=== PATIENT | male | born 1960 | race Caucasian/White ===

== ENCOUNTER → 2016-10-31 | Outpatient (CLI) | payer BC ==
[~2016-10-31] MED LIST: ASPI81TA28 PO; CHOL100010 PO; CLB200 PO; HYDR-5688 PO; LSN/2025 PO
== END | disposition home or self-care (01) ==
LOC: C.PATHSPEC 17:01
PROVIDERS: ATTEND Dentist Oral and Maxillofacial Pathology
DX: D21.0 Benign neoplasm of connective and other soft tissue of head, face and neck (principal)

== ENCOUNTER 2023-11-10 14:51 | Observation (INO) ==
[2023-11-10 15:29] LABS: Basophils # (auto) 0.04 K/uL (0.00-0.20); Basophils % (auto) 0.4 %; Eosinophils # (auto) 0.07 K/uL (0.00-0.50); Eosinophils % (auto) 0.7 %; Hematocrit (blood only) 41.6 % (42.0-52.0); Hemoglobin 14.4 g/dl (14.0-18.0); Immature Granulocytes # (auto) 0.07 K/uL (0.01-0.20); Immature Granulocytes % (auto) 0.7 %; Lymphocytes # (auto) 1.09 K/uL (1.20-3.40); Lymphocytes % (auto) 10.9 %; Mean Corpuscular Hgb Conc 34.6 g/dL (32.0-36.0); Mean Corpuscular Volume 89.5 fL (80.0-100.0); Mean Platelet Volume 8.7 fL (9.4-12.4); Monocytes # (auto) 0.63 K/uL (0.11-0.59); Monocytes % (auto) 6.3 %; Platelet Count 251 K/uL (130-400); RDW Standard Deviation 39.2 fL (36.4-46.3); Red Blood Count 4.65 M/uL (4.70-6.10)
[2023-11-10 15:50] LABS: Albumin Globulin Ratio 1.6 (0.9-2); Albumin Level 4.4 gm/dl (3.4-5.0); BUN Creatinine Ratio 14.6 (10-20); Bilirubin,Total 0.6 mg/dl (0.2-1.0); Calcium 9.5 mg/dl (8.6-10.3); Creatinine Clr Calc Pharmacy 107.4 ml/min; Est GFR (African American) 106.2 ml/min; Est GFR (Non-African American) 91.6 ml/min; Globulin 2.7 gm/dl (2.5-4.0); Potassium 3.2 mmol/L (3.5-5.1); Total Protein 7.1 gm/dl (6.0-8.3)
[2023-11-10] MEDS ORDERED: VANCOMYCIN CONSULT ACTIVE PRN (16:03)
--- NOTE | 2023-11-10 16:21 | History & Physical Report ---
Date of Service November 10, 2023 Assessment & Plan (1) Cellulitis of left arm: (2) DM II (diabetes mellitus, type II), controlled: (3) Hypertension: (4) HLD (hyperlipidemia): Plan: Left olecranon Cellulitis - Admit to Med surg - Pt reports worsening erythema and edema today despite antibiotic therapy of doxycycline x 4 days, failure of outpt abx - No WBC, afebrile, - Will continue on ceftriaxone and vanc today started in the ER, wean to PO as tolerated - Attempted to outline erythematous region but difficult to determine due to tattoos and is not brght red. There is some warmth however cannot tell compared as both arm temps feel the same. - Check XR left arm - does not appear to have a septic joint, pt with full ROM, afebrile Hypokalemia - K+ 3.2 - replace with Po 40 meq, recheck with am labs HTN HLD - Continue home meds, chronic, stable - amlodipine 2.5 mg daily, atorvastatin 20 mg QPM, lisinopril/HCTZ 20-25 mg daily, metoprolol 50 mg daily DM II - Will hold metformin and use insulin sliding scale while admitted - Last A1C of 6.3 on 10/29/23 - Diet and exercise to be encouraged throughout hospital stay DVT ppx: ambulatory Lines: 1 PIV FEN/GI: Heart healthy/DM diet CODE: Full code Dispo: From home, likely to remain in the hospital x 1-2 days A total of 75 minutes were spent with greater than 50% of that time face to face with the patient, personally reviewing all current laboratories, imaging studies, past medication reconciliation, outpatient chart review, and discussion with specialists to collaborate care for the patient with attending. Please see attending documentation for corrections and/or additions. History of Present Illness Chief Complaint: L elbow swelling and erythema Primary Care Provider: Jerad Agrawal MD This is a 63 yo M with PMHx of HTN, DM type II, restless leg, who fell on October 24 down on his left arm and reports that it jammed up his shoulder. He has an abrasion over the ulnar aspect of the elbow which she has been seen by his PCP for earlier today. Redness and tenderness over the elbow started 2 days ago, earlier this morning at PCP office denied any acute fever. He was started on doxycycline 100 mg twice daily and told that if he noticed worsening erythema/fever he was to present to the ER. Patient states that he was outside working earlier this morning using a chain saw, that he is right-handed, for about a 2-hour timeframe and that he noticed his left forearm became increasingly swollen with more inner erythema. He has been taking doxycycline p.o. since last Thursday whenever PCP prescribed it. Notes that he has not quite felt himself, diminished appetite, states that he is somewhat nauseous after taking doxycycline. Denies any fevers, chills or sweats. He did take Aleve 2 days ago for generalized aches and pains. Patient is taking all other home medication without any difficulty. Patient denies any tick bites. He has been able to walk without any difficulty. Allergies Allergy/AdvReac Type Severity Reaction Status Date / Time No Known Allergies Allergy Mild Verified 11/10/23 17:08 Home Medications Medication Instructions Recorded Confirmed Type allopurinol 300 mg tablet 300 mg PO QAM 11/10/23 11/10/23 History amlodipine 2.5 mg tablet 2.5 mg PO QAM 11/10/23 11/10/23 History aspirin 81 mg tablet,delayed 81 mg PO DAILY 11/10/23 11/10/23 History release atorvastatin 20 mg tablet 20 mg PO QPM 11/10/23 11/10/23 History cholecalciferol (vitamin D3) 50 50 mcg PO DAILY 11/10/23 11/10/23 History mcg (2,000 unit) tablet (Vitamin D3) cyanocobalamin (vitamin B-12) 1,000 mcg PO DAILY 11/10/23 11/10/23 History 1,000 mcg tablet (Vitamin B-12) doxycycline hyclate 100 mg capsule 100 mg PO BID 11/10/23 11/10/23 History lisinopril 20 1 tab PO QAM 11/10/23 11/10/23 History mg-hydrochlorothiazide 25 mg tablet meclizine 25 mg tablet 25 mg PO TID PRN .dizzyness 11/10/23 11/10/23 History metformin 500 mg tablet,extended 1,000 mg PO DAILY 11/10/23 11/10/23 History release 24 hr metoprolol succinate 50 mg 50 mg PO QAM 11/10/23 11/10/23 History tablet,extended release 24 hr ropinirole 0.5 mg tablet 1.5 mg PO HS 11/10/23 11/10/23 History Past Med/Surg History Problem List (Updated 11/10/23 @ 16:59 by Mignon Ruiz PA-C) Cellulitis of left arm Medical History (Updated 11/10/23 @ 16:59 by Mignon Ruiz PA-C) HLD (hyperlipidemia) DM II (diabetes mellitus, type II), controlled Hypertension Arthritis of right hip Surgical History (Updated 11/10/23 @ 17:01 by Mignon Riuz PA-C) Status post right hip replacement S/P left rotator cuff repair 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 Hx of colonoscopy Family History (Updated 11/10/23 @ 16:59 by Mignon Ruiz PA-C) Mother Diabetes Father Cancer Social History (Updated 11/10/23 @ 17:00 by Mignon Ruiz PA-C) Smoking Status: Never smoker Tobacco Type: Smokeless Tobacco (Dip or Chew) Age Quit Using Tobacco: 43; Feels Safe at Home: Yes Review of Systems Review of Systems: Constitutional: No fever, sweats or chills Eyes: No diplopia, no worsening or blurred vision ENT: normal hearing, no trouble swallowing Respiratory: No cough, sputum, dyspnea at rest or on exertion Cardiovascular: No chest pain, tightness or palpitations Abdomen: No pain, nausea, vomiting, diarrhea or constipation Musculoskeletal: Left elbow per HPI, + chronic Left hip pain, s/p R hip replacement, no calf pain, swelling Neurologic: No weakness, numbness/tingling, or balance problems Psychiatric: No anxiety or depression Skin: No rash or itch Physical Exam Physical Exam: General: awake, alert, no apparent distress, white, male Head: Normocephalic, atraumatic ENT: PERRL, EOMI, no pharyngeal exudate, mucous membranes moist Chest: Clear to auscultation, on room air, no adventitious breath sounds Cardiac: Regular rate and rhythm, no murmur, no JVD, normal peripheral pulses, good capillary refill Abdominal: NABS x 4 quadrants, soft, nondistended, nontender to palpation, no rebound or guarding Extremities: Left elbow with scabbed over area, surrounding erythema is dull, difficult to see with tattoos, +warmth to touch slightly, no obvious significant edema in forearm, otherwise Normal inspection, no peripheral edema or erythema, calfs nontender to palpation Psych: Normal mood and affect Neuro: AAO x 3, strength intact bilaterally and rated 5/5, no motor deficits, speech is clear, no peripheral sensory deficits Results & Data Results & Data Vital Signs (Past 12 Hours) Vital Signs Temp Pulse Pulse Resp BP BP Pulse Ox 11/10/23 15:58 67 11/10/23 15:24 69 18 130/75 97 11/10/23 15:01 36.5 C 68 20 130/82 97 O2 Del Method 11/10/23 15:58 11/10/23 15:24 Room Air 11/10/23 15:01 Room Air Laboratory Results 11/10/23 15:13 WBC 10.00 RBC 4.65 L Hgb 14.4 Hct 41.6 L MCV 89.5 MCH 31.0 MCHC 34.6 RDW Std Deviation 39.2 RDW Coeff of Yue 12.0 Plt Count 251 MPV 8.7 L Immature Gran % (Auto) 0.7 Neut % (Auto) 81.0 Lymph % (Auto) 10.9 Wirt % (Auto) 6.3 Eos % (Auto) 0.7 Baso % (Auto) 0.4 Neut # (Auto) 8.10 H Lymph # (Auto) 1.09 L Wirt # (Auto) 0.63 H Eos # (Auto) 0.07 Baso # (Auto) 0.04 Immature Gran # (Auto) 0.07 Sodium 139 Potassium 3.2 L Chloride 100 Carbon Dioxide 32 Anion Gap 7 BUN 13 Creatinine 0.89 Est Cr Clr Drug Dosing 107.4 Est GFR ( Amer) 106.2 Est GFR (Non-Af Amer) 91.6 BUN/Creatinine Ratio 14.6 Glucose 165 H Calcium 9.5 Total Bilirubin 0.6 AST 18 ALT 13 Alkaline Phosphatase 63 Total Protein 7.1 Albumin 4.4 Globulin 2.7 Albumin/Globulin Ratio 1.6 Supervising Physician Co-Signing Physician Notes I have reviewed the advanced practitioner's documentation on the date of service referenced in note, and I agree with, and take responsibility for the plan of care. Pt seen and examined in the ED with Adrienne Ruiz PA-C. His spouse is present as well. Pt started on Doxy per his PCP for RUE cellulitis. He feels it is worse. Will admit and continue IV abx regimen as directed. I have spent a total of [] minutes coordinating, documenting and providing care for the patient excluding time spent in the performance of separately billed services or time spent by another provider/QHP.
[2023-11-10] MEDS: cefTRIAXone SODIUM 2,000 MG/50 ML BAG IV STA (17:05)
[2023-11-10] MEDS: VANCOMYCIN HCL 2,250 MG in SODIUM CHLORIDE 0.9% 500 ML IV ONE (17:52)
[2023-11-10] MEDS: POTASSIUM CHLORIDE CRTAB 20 MEQ TABCR PO STA (17:52)
--- NOTE | 2023-11-10 17:52 | History & Physical Report ---
Date of Service November 10, 2023 History of Present Illness Primary Care Provider: Jerad Agrawal MD Allergies Allergy/AdvReac Type Severity Reaction Status Date / Time No Known Allergies Allergy Mild Verified 11/10/23 17:08 Home Medications Medication Instructions Recorded Confirmed Type allopurinol 300 mg tablet 300 mg PO QAM 11/10/23 11/10/23 History amlodipine 2.5 mg tablet 2.5 mg PO QAM 11/10/23 11/10/23 History aspirin 81 mg tablet,delayed 81 mg PO DAILY 11/10/23 11/10/23 History release atorvastatin 20 mg tablet 20 mg PO QPM 11/10/23 11/10/23 History cholecalciferol (vitamin D3) 50 50 mcg PO DAILY 11/10/23 11/10/23 History mcg (2,000 unit) tablet (Vitamin D3) cyanocobalamin (vitamin B-12) 1,000 mcg PO DAILY 11/10/23 11/10/23 History 1,000 mcg tablet (Vitamin B-12) doxycycline hyclate 100 mg capsule 100 mg PO BID 11/10/23 11/10/23 History lisinopril 20 1 tab PO QAM 11/10/23 11/10/23 History mg-hydrochlorothiazide 25 mg tablet meclizine 25 mg tablet 25 mg PO TID PRN .dizzyness 11/10/23 11/10/23 History metformin 500 mg tablet,extended 1,000 mg PO DAILY 11/10/23 11/10/23 History release 24 hr metoprolol succinate 50 mg 50 mg PO QAM 11/10/23 11/10/23 History tablet,extended release 24 hr ropinirole 0.5 mg tablet 1.5 mg PO HS 11/10/23 11/10/23 History Past Med/Surg History Problem List (Updated 11/10/23 @ 16:59 by Mignon Ruiz PA-C) Cellulitis of left arm Medical History (Updated 11/10/23 @ 16:59 by Mignon Ruiz PA-C) HLD (hyperlipidemia) DM II (diabetes mellitus, type II), controlled Hypertension Arthritis of right hip Surgical History (Updated 11/10/23 @ 17:01 by Mignon Ruiz PA-C) Status post right hip replacement S/P left rotator cuff repair 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 Hx of colonoscopy Family History (Updated 11/10/23 @ 16:59 by Mignon Ruiz PA-C) Mother Diabetes Father Cancer Social History (Updated 11/10/23 @ 17:00 by Mignon Ruiz PA-C) Smoking Status: Never smoker Tobacco Type: Smokeless Tobacco (Dip or Chew) Age Quit Using Tobacco: 43; Feels Safe at Home: Yes Results & Data Results & Data Vital Signs (Past 12 Hours) Vital Signs Temp Pulse Pulse Resp BP BP Pulse Ox 11/10/23 15:58 67 11/10/23 15:24 69 18 130/75 97 11/10/23 15:01 36.5 C 68 20 130/82 97 O2 Del Method 11/10/23 15:58 11/10/23 15:24 Room Air 11/10/23 15:01 Room Air Code Status & VTE Plan VTE Prophylaxis Plan VTE Prophylaxis will be ordered: No
--- NOTE | 2023-11-10 17:55 | Emergency Department Note ---
History of Present Illness General Chief complaint: Swelling/Edema to Extremity Stated complaint: LT ARM SWELLING, PAIN Time Seen by Provider: 11/10/23 15:52 History of Present Illness Provider complaint: Left elbow swelling Onset (ago): day(s) 4 Maximum Pain Intensity: 2 Associated symptoms: + rash; no fever/chills 61-year-old male presents emergency department for left elbow swelling. Patient reports that 4 days ago he started having pain in swelling in his left elbow. He states he went to his PCP who started him on antibiotics because he thought that his bursa were infected. Patient reports that the swelling and pain has increased and now there is redness. He reports no fevers or chills. Home Medications Medication Instructions Recorded Confirmed Type allopurinol 300 mg tablet 300 mg PO QAM 11/10/23 11/10/23 History amlodipine 2.5 mg tablet 2.5 mg PO QAM 11/10/23 11/10/23 History aspirin 81 mg tablet,delayed 81 mg PO DAILY 11/10/23 11/10/23 History release atorvastatin 20 mg tablet 20 mg PO QPM 11/10/23 11/10/23 History cholecalciferol (vitamin D3) 50 50 mcg PO DAILY 11/10/23 11/10/23 History mcg (2,000 unit) tablet (Vitamin D3) cyanocobalamin (vitamin B-12) 1,000 mcg PO DAILY 11/10/23 11/10/23 History 1,000 mcg tablet (Vitamin B-12) doxycycline hyclate 100 mg capsule 100 mg PO BID 11/10/23 11/10/23 History lisinopril 20 1 tab PO QAM 11/10/23 11/10/23 History mg-hydrochlorothiazide 25 mg tablet meclizine 25 mg tablet 25 mg PO TID PRN .dizzyness 11/10/23 11/10/23 History metformin 500 mg tablet,extended 1,000 mg PO DAILY 11/10/23 11/10/23 History release 24 hr metoprolol succinate 50 mg 50 mg PO QAM 11/10/23 11/10/23 History tablet,extended release 24 hr ropinirole 0.5 mg tablet 1.5 mg PO HS 11/10/23 11/10/23 History Allergies Allergy/AdvReac Type Severity Reaction Status Date / Time No Known Allergies Allergy Mild Verified 11/10/23 17:08 Past Med/Surg History Problem List (Updated 11/10/23 @ 17:58 by Dominic Camejo MD) Bursitis (Acute) Cellulitis of left arm Medical History HLD (hyperlipidemia) DM II (diabetes mellitus, type II), controlled Hypertension Arthritis of right hip Surgical History Status post right hip replacement S/P left rotator cuff repair 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 Hx of colonoscopy Family History Mother Diabetes Father Cancer Social History Smoking Status: Never smoker Tobacco Type: Smokeless Tobacco (Dip or Chew) Age Quit Using Tobacco: 43; Feels Safe at Home: Yes Physical Exam Vital Signs Vital Signs - 24 hr 11/10/23 15:01 11/10/23 15:24 11/10/23 15:58 Temperature 36.5 C Temperature Source Temporal Artery Scan Pulse Rate 68 67 Pulse Rate [Apical] 69 Respiratory Rate 20 18 Respiratory Effort / Characteristics Non-Labored Spontaneous Non-Labored Spontaneous Respiratory Depth Normal Normal Respiratory Pattern Regular Blood Pressure 130/82 Blood Pressure [Right Arm] 130/75 Blood Pressure Mean 98 Blood Pressure Mean [Right Arm] 93 Blood Pressure Position [Right Arm] Lying Pulse Oximetry 97 97 Oxygen Delivery Method Room Air Room Air Sepsis Recent Fever Within 48 Hours No Sepsis New/Unexplained Change in Mental Status No Sepsis Action Taken by Nursing No Action Required [facility]: Left upper extremity: Compartments of the upper extremity are soft. Palpable radial and ulnar pulse. Motor and sensation intact in the median radial and ulnar nerve distribution. There is swelling erythema and warmth and tenderness over the olecranon bursitis. Full range of passive motion of the elbow. Scab over the elbow. Findings are consistent with a cellulitis versus olecranon bursitis no concern for septic arthritis. Right upper extremity: Within normal limits. Course Course 155: The patient was evaluated in room C10. A complete history and physical exam was performed Administered Medications Discontinued Medications Ceftriaxone Sodium (Rocephin) 2,000 mg in 50 mls @ 100 mls/hr IV NOW STA Stop: 11/10/23 16:32 Last Admin: 11/10/23 17:05 Dose: 100 mls/hr Documented By: MADELAINE Medical Decision Making Laboratory Data Attestation: I reviewed the patient's lab results. 11/10/23 15:13 11/10/23 15:13 Lab Results 11/10/23 Range/Units 15:13 WBC 10.00 (4.8-10.8) K/ul RBC 4.65 L (4.70-6.10) M/uL Hgb 14.4 (14.0-18.0) g/dl Hct 41.6 L (42.0-52.0) % MCV 89.5 (80.0-100.0) fL MCH 31.0 (25.0-34.0) pg MCHC 34.6 (32.0-36.0) g/dL RDW Std Deviation 39.2 (36.4-46.3) fL RDW Coeff of Yue 12.0 (11.5-14.5) % Plt Count 251 (130-400) K/uL MPV 8.7 L (9.4-12.4) fL Immature Gran % (Auto) 0.7 % Neut % (Auto) 81.0 % Lymph % (Auto) 10.9 % [place] % (Auto) 6.3 % Eos % (Auto) 0.7 % Baso % (Auto) 0.4 % Neut # (Auto) 8.10 H (1.40-6.50) K/uL Lymph # (Auto) 1.09 L (1.20-3.40) K/uL [place] # (Auto) 0.63 H (0.11-0.59) K/uL Eos # (Auto) 0.07 (0.00-0.50) K/uL Baso # (Auto) 0.04 (0.00-0.20) K/uL Immature Gran # (Auto) 0.07 (0.01-0.20) K/uL Sodium 139 (136-145) mmol/L Potassium 3.2 L (3.5-5.1) mmol/L Chloride 100 (98-107) mmol/L Carbon Dioxide 32 (21-32) mmol/L Anion Gap 7 (3-11) BUN 13 (6-23) mg/dl Creatinine 0.89 (0.6-1.4) mg/dl Est Cr Clr Drug Dosing 107.4 ml/min Est GFR ( Amer) 106.2 ml/min Est GFR (Non-Af Amer) 91.6 ml/min BUN/Creatinine Ratio 14.6 (10-20) Glucose 165 H (70-99(Fasting)) mg/dl Calcium 9.5 (8.6-10.3) mg/dl Total Bilirubin 0.6 (0.2-1.0) mg/dl AST 18 (13-39) U/L ALT 13 (7-52) U/L Alkaline Phosphatase 63 (34-104) U/L Total Protein 7.1 (6.0-8.3) gm/dl Albumin 4.4 (3.4-5.0) gm/dl Globulin 2.7 (2.5-4.0) gm/dl Albumin/Globulin Ratio 1.6 (0.9-2) MDM Narrative Patient was seen during a time of extreme volume and extreme acuity in the emergency department. Nursing triage protocols were initiated and labs were drawn by protocol in the triage area. Labs within normal limits. Clinically the patient has infective bursitis versus cellulitis. No concern for septic arthritis. Patient has failed outpatient oral doxycycline will be treated with vancomycin and Rocephin admitted to the [facility] hospitalist team. Impression & Plan Bursitis Discharge Plan Visit Data Chief Complaint: Swelling/Edema to Extremity Stated Complaint: LT ARM SWELLING, PAIN ED Provider: Dominic Camejo Discharge Problem: Bursitis Patient Disposition: Being Evaluated by Hospitalist Forms Stand Alone Forms: My [facility] Prescriptions Prescriptions: No Action doxycycline hyclate 100 mg capsule 100 mg PO BID atorvastatin 20 mg tablet 20 mg PO QPM metoprolol succinate 50 mg tablet extended release 24 hr 50 mg PO QAM cyanocobalamin (vitamin B-12) [Vitamin B-12] 1,000 mcg Tablet 1,000 mcg PO DAILY amlodipine 2.5 mg tablet 2.5 mg PO QAM aspirin [Aspir-Low] 81 mg Tablet,Delayed Release (Dr/Ec) 81 mg PO DAILY meclizine 25 mg tablet 25 mg PO TID PRN (Reason: .dizzyness) ropinirole 0.5 mg tablet 1.5 mg PO HS lisinopril-hydrochlorothiazide 20-25 mg tablet 1 tab PO QAM allopurinol 300 mg tablet 300 mg PO QAM metformin 500 mg tablet extended release 24 hr 1,000 mg PO DAILY cholecalciferol (vitamin D3) [Vitamin D3] 50 mcg (2,000 unit) Tablet 50 mcg PO DAILY Referrals Referrals: Jerad Agrawal MD [Primary Care Provider] - Discharge Problem: Bursitis Qualifiers: Bursitis location: elbow Elbow bursitis location: unspecified Laterality: u nspecified laterality Qualified Code(s): M70.30 - Other bursitis of elbow, unspecified elbow
--- NOTE | 2023-11-10 18:01 | XRay Report ---
XR humerus LT 2V CLINICAL HISTORY: Eval Elbow, concern for septic joint, cellulitis COMPARISON STUDY: None. FINDINGS: No fracture or dislocation within the left humerus. No radiopaque foreign bodies. Soft tiss ue swelling at the elbow. Nondiagnostic evaluation for an elbow effusion due to patient positioning. IMPRESSION: 1. No fractures within the left humerus. 2. Soft tissue swelling at the left elbow. ACT 112: Negative or not required by law. Electronically signed by: Andreas Manning M.D. 11/10/2023 6:00 PM
[2023-11-10] MEDS ORDERED: ONDANSETRON INJ 2 MG/ML 2 ML VIAL IV PRN (18:40)
[2023-11-10] MEDS: ACETAMINOPHEN 325 MG TAB PO PRN (21:03)
[2023-11-11 07:28] LABS: BUN Creatinine Ratio 13.8 (10-20); Calcium 8.9 mg/dl (8.6-10.3); Creatinine Clr Calc Pharmacy 119.8 ml/min; Est GFR (Non-African American) 95.7 ml/min; Potassium 3.7 mmol/L (3.5-5.1)
[2023-11-11] MEDS: VANCOMYCIN HCL 1,500 MG in SODIUM CHLORIDE 0.9% 500 ML IV SCH (08:31)
[2023-11-11] MEDS ORDERED: GLUCOSE 40% GEL 15 GM TUBE PO PRN (08:36)
[2023-11-11] MEDS ORDERED: GLUCAGON FOR INJ 1 MG VIAL SQ PRN (08:36)
[2023-11-11] MEDS ORDERED: CARBOHYDRATES FOR HYPOGLYCEMIA PO PRN (08:36)
[2023-11-11] MEDS ORDERED: GLUCOSE 10 TAB/TUBE PO PRN (08:36)
[2023-11-11] MEDS ORDERED: DEXTROSE 50% 50 ML SYRINGE IV PRN (08:36)
[2023-11-11] MEDS: amLODIPine BESYLATE 5 MG TAB PO SCH (09:45)
[2023-11-11] MEDS: ASPIRIN 81 MG ECTAB PO SCH (09:45)
[2023-11-11] MEDS: LISINOPRIL/HCTZ 20/25MG 1 TAB PO SCH (10:05)
[2023-11-11] MEDS: allopurinoL 300 MG TAB PO SCH (10:05)
[2023-11-11] MEDS: METOPROLOL SUCC 50MG EXT REL TAB PO SCH (10:06)
--- NOTE | 2023-11-11 10:27 | Hospitalist Progress Note ---
Date of Service November 11, 2023 Assessment & Plan (1) Cellulitis of left arm: (2) DM II (diabetes mellitus, type II), controlled: (3) Hypertension: (4) HLD (hyperlipidemia): Plan: Left olecranon Cellulitis - Pt reports worsening erythema and edema At left elbow despite antibiotic therapy of doxycycline x 4 days, failure of outpt abx - No WBC, afebrile, Left humerus x-ray with no fracture, indicative of soft tissue swelling at left elbow. - continue with vancomycin - erythema, warmth, tenderness improving per patient. - Check XR left arm - does not appear to have a septic joint, pt with full ROM, afebrile Hypokalemia: Monitor replete HTN HLD - Continue home meds, chronic, stable - amlodipine 2.5 mg daily, atorvastatin 20 mg QPM, lisinopril/HCTZ 20-25 mg daily, metoprolol 50 mg daily DM II - Will hold metformin and use insulin sliding scale while admitted - Last A1C of 6.3 on 10/29/23 - Diet and exercise to be encouraged throughout hospital stay DVT ppx: ambulatory CODE: Full code Dispo: From home, likely DC tomorrow A total of 75 minutes were spent with greater than 50% of that time face to face with the patient, personally reviewing all current laboratories, imaging studies, past medication reconciliation, outpatient chart review, and discussion with specialists to collaborate care for the patient with attending. Please see attending documentation for corrections and/or additions. Admission and Anticipated Discharge Date Admission Date: November 10, 2023 Subjective Patient was seen and examined at bedside. Patient was lying in bed, on room air, resting comfortably, not in any acute distress. Patient reports improving swelling/erythema of left elbow. Range of motion not painful. Patient denies febrile illness or headache or sore throat or chest pain. Patient reports eating okay and moving bowels okay. Physical Exam Physical Exam: General: awake, alert, no apparent distress, On room air, NAD Head: Normocephalic, atraumatic ENT: PERRL, EOMI, no pharyngeal exudate, mucous membranes moist Chest: Clear to auscultation, on room air, no adventitious breath sounds Cardiac: Regular rate and rhythm, no murmur, no JVD, normal peripheral pulses, good capillary refill Abdominal: NABS x 4 quadrants, soft, nondistended, nontender to palpation, no rebound or guarding Extremities: Left elbow with minimal swelling, no erythema, minimal tenderness, warm to touch. ROM not painful. Psych: Normal mood and affect Neuro: AAO x 3, strength intact bilaterally and rated 5/5, no motor deficits, speech is clear, no peripheral sensory deficits Results & Data Results & Data Vital Signs (Past 12 Hours) Vital Signs Temp Pulse Resp BP Pulse Ox O2 Del Method 11/11/23 10:08 60 131/87 95 Room Air 11/11/23 07:42 36.5 C 64 16 138/83 98 Room Air 11/11/23 01:37 36.5 C 58 L 16 134/83 95 Room Air
--- OUTSIDE RECORDS SUMMARY | 2023-11-11 10:32 | External Medical Summary | Summary of Care ---
Author Name Unknown Organization [facility] Address [address] [place] [address] Phone [phone] Care Team Providers Care Rubber Flap Tuber Machine Operator Name Role Phone Jerad Agrawal MD Primary Care Provider Reason for Referral * Evaluate & Treat - Unlimited Visits (Within 30 days (routine)) - Authorized Specialty Diagnoses / Procedures Referred By Yolanda rodas Referred To Contact Orthopaedic Surgery / Orthopedics Diagnoses Primary osteoarthritis of one hip, left Jerad Agrawal MD [address] [place] [address] Bravo De La Torre MD [address] [address] Referral ID Status Reason Start Date Expiration Date Visits Requested Visits Authorized [id number] Authorized Specialty Services Required 11/06/[phone] Question Answer Referral Priority Within 30 days (routine) Where should this appointment be scheduled? [facility] What body part is the patient being seen for? Hip What condition is the patient being seen for? Arthritis including related infection Reason for Visit * Reason Comments Follow Up Patient is here toda y for a follow up.Patient states he has a painful "bite" on his left elbow that is swollen. Patient states he has taken some advil to help with the pain. Patient states the advil helped aleve the discomfort. Encounter Details Date Type Department Care Team (Latest Contact Info) Description 11/06/2023 2:40 PM EDT Office Visit Family Practice, [place] [address] [place] [address] Jerad Agrawal MD [address] [place] [address] Type 2 diabetes mellitus with diabetic polyneuropathy, without long-term current use of insulin ([facility])*; Need for vaccination for zoster; HTN, goal below 140/90; Primary osteoarthritis of one hip, left; Olecranon bursitis of left elbow Allergies No known active allergiesdocumented as of this encounter (statuses as of 11/06/2023) Medications Medication Sig Dispensed Refills Start Date End Date Status ASPIRIN EC 81 MG PO TBEC Take one pill daily 100 Tab 3 11/25/2011 Active VITAMIN D3 2000 UNITS PO CAPS Take 1 capsule daily. 90 Cap 1 02/10/2014 Active Meclizine HCl 25 MG Oral Tablet (Antivert) Take 0.5-1 Tablets by mouth 3 times a day as needed for Dizziness. 30 Tablet 1 05/01/2023 Active Metoprolol Succinate ER 50 MG Oral Tablet Extended Release 24 Hour (toPROL XL)Indications:HTN, goal below 140/90 TAKE 1 TABLET BY MOUTH ONCE DAILY 90 Tablet 3 05/14/2023 Active metFORMIN HCl ER 500 MG Oral Tablet Extended Release 24 Hour (Glucophage XR)Indications:Type 2 diabetes mellitus with hemoglobin A1c goal of less than 7.0% (HCC) TAKE TWO TABLETS BY MOUTH DAILY WITH A MEAL 180 Tablet 3 06/12/2023 Active rOPINIRole HCl 0.5 MG Oral Tablet (Requip)Indications :Restless legs syndrome 1 tab daily at bedtime. After 2 weeks may increase to 2 tabs at bedtime. After another 2 weeks may increase to 3 tabs at bedtime. 90 Tablet 3 08/11/2023 Active amLODIPine Besylate 2.5 MG Oral Tablet (Norvasc)Indication s:HTN, goal below 140/90 TAKE 1 TABLET BY MOUTH EVERY MORNING 90 Tablet 1 08/26/2023 Active Lisinopril-hydroCHL OROthiazide 20-25 MG Oral TabletIndications:H TN, goal below 140/90 TAKE 1 TABLET BY MOUTH ONCE DAILY 90 Tablet 1 08/26/2023 Active Atorvastatin Calcium 20 MG Oral Tablet (Lipitor)Indication s:Hyperlipidemia with target LDL less than 100 TAKE 1 TABLET BY MOUTH EVERY EVENING 90 Tablet 1 08/26/2023 Active Vitamin B-12 1000 MCG Oral Tablet (Cyanocobalamin)Ind ications:B12 deficiency TAKE 1 TABLET BY MOUTH ONCE DAILY 90 Tablet 3 08/27/2023 Active Allopurinol 300 MG Oral Tablet (Zyloprim)Indicatio ns:Gouty arthropathy TAKE 1 TABLET BY MOUTH EVERY MORNING 90 Tablet 2 09/23/2023 Active Doxycycline Hyclate 100 MG Oral CapsuleIndications: Olecranon bursitis of left elbow Take 1 Capsule by mouth in the morning and 1 Capsule before bedtime. Do all this for 10 days. Until gone.. 20 Capsule 11/06/2023 11/16/2023 Active documented as of this encounter (statuses as of 11/06/2023) Active Problems Problem Noted Date Diagnosed Date 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 09/06/2021 Type 2 diabetes mellitus wit h hemoglobin A1c goal of less than 7.0% 07/06/2020 B12 deficiency 06/08/2020 Numbness and tingling in left hand 02/06/2017 Patellofemoral pain syndrome 02/11/2012 HTN, goal below 140/90 06/25/2010 Dyslipidemia, goal LDL below 100 documented as of this encounter (statuses as of 11/06/2023) Resolved Problems Problem Noted Date Diagnosed Date Resolved Date Prediabetes 06/18/2020 06/26/2021 Overview: Per Prediabetes protocol Prediabetes 12/18/2019 01/19/2020 Vitamin D deficiency 10/24/2016 017 Bleeding internal hemorrhoids 09/19/2016 02/06/2017 Overview: Resolved Skin erosion 11/09/2013 10/21/2016 Multiple pigmented nevi 11/09/201310/09 Tobin angioma 11/09/2013 02/06/2017 Obesity, Class I, BMI 30.0-3 4.9 (see actual BMI) 02/11/2012 10/21/2016 Overview: bmi= 32.92 02/11/12 Left knee pain 02/11/2012 10/21/2016 OBESITY, BMI= 34.44 06/25/10 06/25/2010 10/21/2016 Dermatitis 06/25/2010 10/21/2016 DIZZINESS 06/25/2010 10/21/2016 Epistaxis 06/25/2010 10/21/2016 Chronic sinusitis 06/25/2010 10/21/2016 ACUTE PHARYNGITIS 12/22/2000 05/08/2007 Fertility testing 12/22/2000 05/08/2007 DYSFUNCT EUSTACHIAN TUBE 05/19/2000 SPASM OF MUSCLE, RIGHT SCM 05/19/2000 1 Chronic rhinitis 05/19/2000 10/21/2016 SPASM OF MUSCLE, LEFT SCM 05/19/2000 ORAL TOBACCO USE 05/19/2000 05/08/2007 documented as of this encounter (statuses as of 11/06/2023) Immunizations Name Administration Dates Next Due Pneumococcal Conjugate Vacci ne, 20-valent ([id number]) 05/01/2023 Pneumococcal Polysaccharide PPV23 (Pneumovax) 09/06/2021 Seasonal Influenza, PF, 6 M & above, IM , (FluLaval or Fluzone) 05/01/2023,03/14/2022,03/08/2021,02/06 Seasonal Influenza, Quadriva lent, No Preserve, IM 04/25/2016,04/24/2015 Seasonal Influenza, Split, I IV3, With Preserve, Inj 02/10/2014,04/20/2013,04/23/2012,01/26 TD, Preservative Free 10/24/2016 TDAP, Age 7 and older, IM (Adacel) 11/12/2005 documented as of this encounter Social History Tobacco Use Types Packs/Day Years Used Date Smoking Tobacco: Never Smokeless Tobacco: Former Snuff Quit: 11/09/2003 Comments:1 can per day/ quit as of 12/2003// quit snuff as of 2004 Alcohol Use Standard Drinks/Week Comments Yes 0 (1 standard drink = 0.6 oz pur e alcohol) 2 -3 cans beer per day PHQ-2 Answer Date Recorded PHQ Adult Total Score 0 11/06/2023 Hunger Vital Sign Answer Date Recorded Within the past 12 months, y ou worried that your food would run out before you got the money to buy more. Never true 09/13/19 23 Within the past 12 months, t he food you bought just didn't last and you didn't have money to get more. Never true 09/12/2022 Utilities Answer Date Recorded Do you have trouble paying y our heating, water, or electric bill? (Adult - for ages 18 years and over) Not on file 10/27/2023 Is your family able to pay t he heat, water, or electric bill? (Household - for ages 0-17 years) Not on file 10/27/2023 Does your family have access to good internet? (Household - for ages 0-17 years) Not on file 10/27/2023 Social Connections Answer Date Recorded How often do you feel lonely or isolated from those around you? (Adult - for ages 18 years and over) Not on file 10/27/2023 Sex and Gender Information Value Date Recorded Sex Assigned at Male 09/12/2022 2:34 PM EDT Gender Identity Male 09/12/2022 2:34 PM EDT Sexual Orientation Straight 09/12/2022 2: 34 PM EDT Job Start Date Occupation Industry Not on file Not on file Not on file documented as of this encounter Last Filed Vital Signs Vital Sign Reading Time Taken Comments Blood Pressure 124/74 11/06/2023 2:31 PM EDT Pulse 72 11/06/2023 2:31 PM EDT Temperature 36.2 C (97.2 F) 11/06/2023 2:31 PM ED T Respiratory Rate 16 11/06/2023 2:31 PM EDT Oxygen Saturation 94% 11/06/2023 2:31 PM EDT Inhaled Oxygen Concentration - - Weight 111.6 kg (246 lb) 11/06/2023 2:31 PM EDT Height 177.8 cm (5' 10") 11/06/2023 2:31 PM EDT Body Mass Index 35.3 11/06/2023 2:31 PM EDT documented in this encounter Patient Instructions * Patient Instructions* Trinity Jefferson, MED ASSIST - 11/06/2023 2:27 PM EDT Diabetes: Keeping Feet Healthy Inspect your feet every day for signs of a problem. Diabetes can damage nerves in your feet and cause neuropathy. This condition makes it hard for you to feel injuries or sore spots. Diabetes can also change blood flow, making it harder for small problems, like a blister, to heal properly. In fact, minor injuries can quickly become serious infections that send you to the hospital. Practice self-care to protect your feet and keep them healthy. Take Special Care Inspect your feet daily for problems such as redness, blisters, cracks, dry skin, or numbness. Use a mirror to see the bottoms of your feet. Or, ask for help. Manage your diabetes. Monitor and control your blood sugar. Take all your medications as prescribed. Avoid walking barefoot, even indoors. Wash your feet with warm water and mild soap. Dry well, especially between toes. Dont treat corns or calluses yourself. Talk to your doctor or enlisted advisor (a doctor who specializes in foot care) if you need assistance trimming your toenails. Use moisturizing cream or lotion if you have dry skin, but dont use it between toes. Dont use heating pads on your feet. If you have neuropathy, you could get a burn and not feel it. Stop smoking. Smoking restricts blood flow and can make it harder for wounds to heal. Have Regular Checkups Foot problems can develop quickly. So be sure to follow your healthcare teams schedule for regular checkups. During office visits, take off your shoes and socks as soon as you get in the exam room. Ask your healthcare provider to examine your feet for problems. This will make it easier to find and treat small skin irritations before they get worse. Regular checkups can also help keep track of the blood flow and feeling in your feet. If you have neuropathy, you may need to have checkups more often. Wear Proper Footwear Wearing proper footwear is very important. If areas of your feet have been damaged by too much pressure, your healthcare provider may recommend changing your footwear. In some cases, avoiding high heels or tight work boots may be all thats needed. Or, your healthcare provider may recommend special shoes or custom inserts. These help protect your feet and keep existing irritations from getting worse. If you need special footwear, ask your healthcare provider if you qualify for [employer] diabetic shoe program. Make Sure Shoes and Socks Fit Any pair of shoes--new or old--should feel comfortable as soon as you put them on. There shouldnt be any rubbing when you walk. Wear the right shoe for any activity. For instance, a running shoe is designed to keep your feet injury-free while jogging. Buy shoes at the end of the day, when your feet are larger. Make sure they provide support without feeling too loose. Make sure your socks fit, t oo. Wear soft, seamless, well-padded socks for activity. Cotton or microfiber socks are best to help to absorb sweat. To protect your feet, avoid shoes that are open-toed or open-heeled. If you have questions about what kinds of shoes and socks are best, talk to your healthcare team. Get Regular Exercise Regular exercise improves blood flow in your feet. It also increases foot strength and flexibility.Gentle exercises, like walking or riding a stationary bicycle, are best. You can also do special foot exercises. Just be sure to talk with your healthcare provider before starting any exercise program. Also mention if any exercise causes pain, redness, or other signs of foot problems. Note: If you have any kind of break in the skin of your foot or ankle, keep the area clean. Then call your doctor--especially if the area doesnt appear to be healing. 9711-2224 [employer], [address] [place] [address]. All rights reserved. This information is not intended as a substitute for professional medical care. Always follow your healthcare professional's instructions. documented in this encounter Progress Notes * Jerad Agrawal MD - 11/06/2023 3:25 PM EDT Subjective: Bg Gonsalves is a 63 year old male. Chief Complaint Patient presents with Follow Up Patient is here today for a follow up. Patient states he has a painful "bite" on his left elbow that is swollen. Patient states he has taken some advil to help with the pain. Patient states the advil helped aleve the discomfort. HPI: 63-year-old seen today as a routine recheck. Known history hypertension, type 2 diabetes, restless leg syndrome. He has previously had right hip replacement with Dr. Meño serrnao. He has been noticing progressive discomfort with the left hip and now feels very much like the right hip pain before replacement. He is also having pain in the left knee. Previously saw Dr. Santos in Sports Medicine whoinjected in the a couple of times. He would like to have hip and knee replacement done before 2024 for insurance reasons. Fell October 24 and came down in his left arm jammed in his shoulder but also suffering abrasion over the ulnar aspect of the elbow. Within the last 2 days he is noticed swelling and some tenderness over the posterior aspect of the elbow. He has not aware of fever. Patient Active Problem List Diagnosis HTN, goal below 140/90 Dyslipidemia, goal LDL below 100 Patellofemoral pain syndrome Numbness and tingling in left hand B12 deficiency Type 2 diabetes mellitus with hemoglobin A1c goal of less than 7.0% ([facility]) Type 2 diabetes mellitus with diabetic polyneuropathy ([facility]) Current Outpatient Medications Medication Sig Dispense Refill ASPIRIN EC 81 MG PO TBEC Take one pill daily 100 Tab 3 VITAMIN D3 2000 UNITS PO CAPS Take 1 capsule daily. 90 Cap 1 Metoprolol Succinate ER 50 MG Oral Tablet Extended Release 24 Hour (toPROL XL) TAKE 1 TABLET BY MOUTH ONCE DAILY 90 Tablet 3 metFORMIN HCl ER 500 MG Oral Tablet Extended Release 24 Hour (Glucophage XR) TAKE TWO TABLETS BY MOUTH DAILY WITH A MEAL 180 Tablet 3 rOPINIRole HCl 0.5 MG Oral Tablet (Requip) 1 tab daily at bedtime. After 2 weeks may increase to 2 tabs at bedtime. After another 2 weeks may increase to 3 tabs at bedtime. 90 Tablet 3 amLODIPine Besylate 2.5 MG Oral Tablet (Norvasc) TAKE 1 TABLET BY MOUTH EVERY MORNING 90 Tablet 1 Lisinopril-hydroCHLOROthiazide 20-25 MG Oral Tablet TAKE 1 TABLET BY MOUTH ONCE DAILY 90 Tablet 1 Atorvastatin Calcium 20 MG Oral Tablet (Lipitor) TAKE 1 TABLET BY MOUTH EVERY EVENING 90 Tablet 1 Vitamin B-12 1000 MCG Oral Tablet (Cyanocobalamin) TAKE 1 TABLET BY MOUTH ONCE DAILY 90 Tablet 3 Allopurinol 300 MG Oral Tablet (Zyloprim) TAKE 1 TABLET BY MOUTH EVERY MORNING 90 Tablet 2 Meclizine HCl 25 MG Oral Tablet (Antivert) Take 0.5-1 Tablets by mouth 3 times a day as needed for Dizziness. 30 Tablet 1 No current facility-administered medications for this visit. Review of patient's allergies indicates: No Known Allergies Objective: BP 124/74 | Pulse 72 | Temp 36.2 C (97.2 F) (Tympanic) | Resp 16 | Ht 1.778 m (5' 10") | Wt 111.6 kg (246 lb) | SpO2 94% | BMI 35.30 kg/m | BSA 2.35 m Physical Exam: CONST: alert, pleasant, no acute distress HEAD: normocephalic, atraumatic NECK: supple, soft, no adenopathy E OROPHARYNX: clear, no swelling or erythema, moist CV: regular rate and rhythm, no murmur CHEST: clear to auscultation bilaterally, no rales or wheezing ABD: soft, non tender, non distended, no masses or hepatosplenomegaly EXT: He has a 3 cm scab post abrasion over the ulnar aspect of the left elbow. He is some diffuse swelling of the posterior aspect of the the elbow in the olecranon bursa. No significant tenderness at this point I really do not appreciate erythema but there is some warmth. It does not come to a head. New line he has some subpatellar fremitus of the left knee. NEURO: AAOx3, no gross focal deficits, cerebellar signs normal, affect appropriate MENTAL STATUS: no evidence of thought disorder, no delusional thought, no evidence of paranoia, thought is non-tangential. SKIN: no rash or significant lesions ASSESSMENT/PLAN: Type 2 diabetes mellitus with diabetic polyneuropathy (HCC) (Primary)-excellent control continue the metformin ER 500 mg, 2 tablets once daily - DIABETES FOOT EXAM Osteoarthritis left hip Um and left knee: Refer to Dr. Bravo De La Torre. He initially is most interested in having hip replacement if it is felt to be needed.. He is also mentally prepared to have left knee replacement. Need for vaccination for zoster-hold off on this vaccine today given that it commonly causes fever do not want to confuse situation with the possible olecranon bursitis/cellulitis Left olecranon bursitis with possibly early cellulitis. This may be in part related to the abrasionwound at the elbow but may also be related to a lot of repetitive lifting Um moving to a stone thisweek. New line start doxycycline 100 mg twice a day for 10 days. Warm compresses to the area a couple times a day. If this is getting bigger and in particular if he notes redness down his arm and fever, needs to be seen in the emergency room. Jerad Agrawal MD * Trinity Jefferson MED ASSIST - 11/06/2023 2:27 PM EDT Socks and Shoes Removed for Annual Diabetic Foot Screening RIGHT FOOT: No Reddened, Cracking, Or Open Areas Noted. RIGHT Dorsalis Pedis Pulse: Palpable RIGHT Posterior Tibial Pulse: Palpable RIGHT Monofilament:Patient reports feeling monofilament pressure on plantar surface of foot LEFT FOOT: No Reddened, Cracking or Open Areas Noted. LEFT Dorsalis Pedis Pulse: Palpable LEFT Posterior Tibial Pulse: Palpable LEFT Monofilament:Patient reports feeling monofilament pressure on plantar surface of foot Do you need diabetic shoes: No DM Foot Exam completed today. Provider aware. HUGH Henderson documented in this encounter Nursing Notes * Trinity Jefferson MED ASSIST - 11/06/2023 2:37 PM EDT The patient has been properly identified by confirmation of name and date of . Chief Complaint Patient presents with Follow Up Patient is here today for a follow up. Patient states he has a painful "bite" on his left elbow that is swollen. Patient states he has taken some advil to help with the pain. Patient states the advil helped aleve the discomfort. documented in this encounter Plan of Treatment Upcoming Encounters Date Type Department Care Team (Late st Contact Info) Description 05/13/2024 2:20 PM EST Office Visit [facility] [address] [place] [address] Jerad Agrawal MD [address] [place] [address] Scheduled Procedures Name Priority Associated Diagnoses Date/Ti me COLONOSCOPY FLEXIBLE PROXIMA L DIAGNOSTIC Recall History of colonic polyps Scheduled Referrals Name Type Priority Associated Diagnoses Orde r Schedule ORTHOPAEDICS REFERRAL OP Referral Within 30 days (routine) Primary osteoarthritis of one hip, left Ordered: 11/06/2023 Health Maintenance Due Date Last Done Comments Cologuard 2006 Fecal Occult Blood Test 2006 Sigmoidoscopy 2006 Zoster Vaccines (1 of 2) 2011 COVID-19 Vaccine ( season) 2023 HbA1c 04/29/2024 10/29/2023, 04/11, 09/12/2022, Additional history exists Albumin/Creatinine Ratio 05/01/2024 023, 05/30/2022, 05/31/2021, Additional history exists B-12 05/01/2024 05/01/2023, 05/12, 05/31/2021, Additional history exists GFR 05/01/2024 05/01/2023, 05/12, 05/31/2021, Additional history exists Diabetic Eye Exam 07/01/2024 07/01/2023, 06/03/2021 Depression Screening 11/05/2024 11/06/2023 Diabetic Foot Exam 11/05/2024 11/06/2023 Colonoscopy 08/01/2025 08/01/2022, 07/10, 12/12/2011, Additional history exists Colorectal Cancer Screening 08/01/2025 DTaP,Tdap,and Td Vaccines (3 - Td or Tdap) 10/24/2026 10/24/2016, 11/12/2005, 08/16/1991 Lipid Panel 05/01/2028 05/01/2023, 05/12, 05/31/2021, Additional history exists Influenza Vaccine (FLU shot) Completed , 03/14/2022, 03/08/2021, Additional history exists Pneumococcal Vaccine: Pediatrics (0 to 5 Years) and At-Risk Patients (6 to 64 Years) Completed 05/01/2023, 09/06/2021 GARDASIL-HPV IMMUNIZATION SERIES Aged Out No longer eligible based on patient's age to complete this topic Hepatitis B Aged Out No longer eligi ble based on patient's age to complete this topic MENINGOCOCCAL (MENACTRA/MENVEO) Aged Out No longer eligible based on patient's age to complete this topic documented as of this encounter Medical Devices Not on filedocumented as of this encounter Visit Diagnoses Diagnosis Type 2 diabetes mellitus with diabetic polyneuropathy, without long-term current use of insulin (HCC)- Primary Need for vaccination for zoster Need for prophylactic vaccination and inoculation against other viral diseases HTN, goal below 140/90 Unspecified essential hypertension Primary osteoarthritis of one hip, left Olecranon bursitis of left elbow Olecranon bursitis documented in this encounter Care Teams Rubber Flap Tuber Machine Operator Relationship Specialty Start Date End Date Jerad Agrawal MD [address] [place] [address] PCP - General 06/09/02 documented as of this encounter
--- OUTSIDE RECORDS SUMMARY | 2023-11-11 10:33 | External Medical Summary ---
Author Name Unknown Address Unknown Organization [id number]:[facility] - [address] [place] [address] Laboratory Report Ordering Provider Test Date Status SHIREEN HONEYCUTTIZABEL 10/29/2023 09:59:35 Final Observation Date Value Abnormality Reference (Units ) Status HbA1C 10/29/2023 09:59:35 6.3 Above high normal 4. 0-5.6 (%) Final The use of HbA1c to monitor glycemic status is based on normal hemoglobin and HbA composition. This test should not be used in patients with abnormal hemoglobin that affects the half life of the red blood cell or the in vivo glycation rates. Glucose, estimated average 10/29/2023 09:59:35 134 Above high normal <126 (mg/dL) Israel mena Performing Location [facility] [place] - [address] [place] [address]
--- OUTSIDE RECORDS SUMMARY | 2023-11-11 10:33 | External Medical Summary | Summary of Care ---
Author Name Unknown Organization [facility] Address [address] [facility] [address] Phone [phone] Care Team Providers Care Data Processing Mechanic Name Role Phone Jerad Agrawal MD Primary Care Provider Reason for Visit * Reason Comments Acute Patient is here due to a sore shoulderPatient states its been chronic for 30 yearsPatient states he takes ibuprofen for pain Patient states no injury Encounter Details Date Type Department Care Team (Late st Contact Info) Description 08/07/2023 10:20 AM EDT Office Visit [facility] [address] [place] [address] Jerad Agrawal MD [address] [place] [address] Pain in joint of right shoulder*; Type 2 diabetes mellitus with diabetic polyneuropathy, without long-term current use of insulin ([facility]); Need for vaccination for zoster; Acute pain of right shoulder Allergies No known active allergiesdocumented as of this encounter (statuses as of 08/07/2023) Medications Medication Sig Dispensed Refills Start Date End Date Status ASPIRIN EC 81 MG PO TBEC Take one pill daily 100 Tab 3 11/25/2011 Active VITAMIN D3 2000 UNITS PO CAPS Take 1 capsule daily. 90 Cap 1 02/10/2014 Active amLODIPine Besylate 2.5 MG Oral Tablet (Norvasc)Indications: HTN, goal below 140/90 Take 1 Tablet by mouth in the morning. 90 Tablet 3 09/12/2022 Active Meclizine HCl 25 MG Oral Tablet (Antivert) Take 0.5-1 Tablets by mouth 3 times a day as needed for Dizziness. 30 Tablet 1 05/01/2023 Active Metoprolol Succinate ER 50 MG Oral Tablet Extended Release 24 Hour (toPROL XL)Indications:HTN, goal below 140/90 TAKE 1 TABLET BY MOUTH ONCE DAILY 90 Tablet 3 05/14/2023 Active Vitamin B-12 1000 MCG Oral Tablet (Cyanocobalamin)Indic ations:B12 deficiency TAKE 1 TABLET BY MOUTH ONCE DAILY 90 Tablet 0 05/29/2023 Active Atorvastatin Calcium 20 MG Oral Tablet (Lipitor)Indications: Hyperlipidemia with target LDL less than 100 TAKE 1 TABLET BY MOUTH EVERY EVENING 90 Tablet 0 05/29/2023 Active Lisinopril-hydroCHLOR Othiazide 20-25 MG Oral TabletIndications:HTN , goal below 140/90 TAKE 1 TABLET BY MOUTH ONCE DAILY 90 Tablet 0 05/29/2023 Active metFORMIN HCl ER 500 MG Oral Tablet Extended Release 24 Hour (Glucophage XR)Indications:Type 2 diabetes mellitus with hemoglobin A1c goal of less than 7.0% (HCC) TAKE TWO TABLETS BY MOUTH DAILY WITH A MEAL 180 Tablet 3 06/12/2023 Active Allopurinol 300 MG Oral Tablet (Zyloprim)Indications :Gouty arthropathy TAKE 1 TABLET BY MOUTH EVERY MORNING 90 Tablet 0 06/27/2023 Active Hospital, Clinic, or Other Facility Administered Medication Ordered Dose Route Frequency Start Date End Date Status Triamcinolone Acetonide (Kenalog) 40 MG/ML inj 40 mgIndications:Pain in joint of right shoulder 40 mg IX ONCE 08/07/2023 08/07/2023 Ended lidocaine 1 % inj 10 mgIndications:Pain in joint of right shoulder 10 mg IX ONCE 08/07/2023 08/07/2023 Ended documented as of this encounter (statuses as of 08/07/2023) Active Problems Problem Noted Date Diagnosed Date 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 09/06/2021 Type 2 diabetes mellitus wit h hemoglobin A1c goal of less than 7.0% 07/06/2020 B12 deficiency 06/08/2020 Numbness and tingling in left hand 02/06/2017 Patellofemoral pain syndrome 02/11/2012 HTN, goal below 140/90 06/25/2010 Dyslipidemia, goal LDL below 100 documented as of this encounter (statuses as of 08/07/2023) Resolved Problems Problem Noted Date Diagnosed Date [...] as of this encounter (statuses as of 08/07/2023) Immunizations Name Administration Dates Next Due Pneumococcal Conjugate Vacci ne, 20-valent ([id number]) 05/01/2023 Pneumococcal Polysaccharide PPV23 (Pneumovax) 09/06/2021 Seasonal Influenza, PF, 6 M & above, IM , (FluLaval or Fluzone) 05/01/2023,03/14/2022,03/08/2021,02/06 Seasonal Influenza, Quadriva lent, No Preserve, IM 04/25/2016,04/24/2015 Seasonal Influenza, Split, I IV3, With Preserve, Inj 02/10/2014,04/20/2013,04/23/2012,01/26 TD, Preservative Free 10/24/2016 TDAP (age 11 and older)(Adacel) 11/12/2005 documented as of this encounter Social [...] Date Recorded PHQ Adult Total Score 0 09/12/2022 Hunger Vital Sign Answer Date Recorded Within the past 12 months, y ou worried that your food would run out before you got the money to buy more. Never true 09/13/19 23 Within the past 12 months, t he food you bought just didn't last and you didn't have money to get more. Never true 09/12/2022 Sex and Gender Information Value Date Recorded Sex Assigned at Male 09/12/2022 2:34 PM EDT Gender Identity Male 09/12/2022 2:34 PM EDT Sexual Orientation Straight 09/12/2022 2: 34 PM EDT Job Start Date Occupation Industry Not on file Not on file Not on file documented as of this encounter Last Filed Vital Signs Vital Sign Reading Time Taken Comments Blood Pressure 122/82 08/07/2023 10:12 AM EDT Pulse 55 08/07/2023 10:12 AM EDT Temperature 36.3 C (97.3 F) 08/07/2023 10:12 AM E DT Respiratory Rate 16 08/07/2023 10:12 AM EDT Oxygen Saturation 97% 08/07/2023 10:12 AM EDT Inhaled Oxygen Concentration - - Weight 111.1 kg (245 lb) 08/07/2023 10:12 AM EDT Height - - Body Mass Index 35.15 06/12/2023 8:42 AM EST documented in this encounter Progress Notes * Jerad Agrawal MD - 08/07/2023 12:20 PM EDT Subjective: Bg Gonsalves is a 63 year old male. Chief Complaint Patient presents with Acute Patient is here due to a sore shoulder Patient states its been chronic for 30 years Patient states he takes ibuprofen for pain Patient states no injury HPI: 63-year-old seen today with a couple of problems. He has been bothered with a discomfort in the right shoulder. This is not severe most of the time through the day but bothers him at nighttime if he rolls over onto. He has had prior rotator cuff surgery in the right shoulder. He recalls pain was much worse with an injury. Does not recall any trauma. He has been taking ibuprofen periodically low-dose Um for the discomfort. Believes he has restless leg syndrome. Several days a week he finds himself moving both lower legs uncontrollably. Does not happen every night but more often than not. To date he has not taken anything for it. The patient does have known type 2 diabetes and some diabetic neuropathy. Patient Active Problem List Diagnosis Code HTN, goal below 140/90 I10 Dyslipidemia, goal LDL below 100 E78.5 Patellofemoral pain syndrome M22.2X9 Numbness and tingling in left hand R20.0, R20.2 B12 deficiency E53.8 Type 2 diabetes mellitus with hemoglobin A1c goal of less than 7.0% ([facility]) E11.9 Type 2 diabetes mellitus with diabetic polyneuropathy ([facility]) E11.42 Current Outpatient Medications Medication Sig Dispense Refill ASPIRIN EC 81 MG PO TBEC Take one pill daily 100 Tab 3 VITAMIN D3 2000 UNITS PO CAPS Take 1 capsule daily. 90 Cap 1 amLODIPine Besylate 2.5 MG Oral Tablet (Norvasc) Take 1 Tablet by mouth in the morning. 90 Tablet 3 Meclizine HCl 25 MG Oral Tablet (Antivert) Take 0.5-1 Tablets by mouth 3 times a day as needed for Dizziness. 30 Tablet 1 Metoprolol Succinate ER 50 MG Oral Tablet Extended Release 24 Hour (toPROL XL) TAKE 1 TABLET BY MOUTH ONCE DAILY 90 Tablet 3 Vitamin B-12 1000 MCG Oral Tablet (Cyanocobalamin) TAKE 1 TABLET BY MOUTH ONCE DAILY 90 Tablet 0 Atorvastatin Calcium 20 MG Oral Tablet (Lipitor) TAKE 1 TABLET BY MOUTH EVERY EVENING 90 Tablet 0 Lisinopril-hydroCHLOROthiazide 20-25 MG Oral Tablet TAKE 1 TABLET BY MOUTH ONCE DAILY 90 Tablet 0 metFORMIN HCl ER 500 MG Oral Tablet Extended Release 24 Hour (Glucophage XR) TAKE TWO TABLETS BY MOUTH DAILY WITH A MEAL 180 Tablet 3 Allopurinol 300 MG Oral Tablet (Zyloprim) TAKE 1 TABLET BY MOUTH EVERY MORNING 90 Tablet 0 Current Facility-Administered Medications Medication Dose Route Frequency Provider Last Rate Last Admin Triamcinolone Acetonide (Kenalog) 40 MG/ML inj 40 mg 40 mg Intra-Articular Once Jerad Agrawal MD lidocaine 1 % inj 10 mg 1 mL Intra-Articular Once Jerad Agrawal MD Review of patient's allergies indicates: No Known Allergies Objective: BP 122/82 | Pulse 55 | Temp 36.3 C (97.3 F) (Tympanic) | Resp 16 | Wt 111.1 kg (245 lb) | SpO2 97% | BMI 35.15 kg/m | BSA 2.34 m Physical Exam: CONST: alert, pleasant, no acute distress HEAD: normocephalic, atraumatic CV: regular rate and rhythm, no murmur CHEST: clear to auscultation bilaterally, no rales or wheezing ABD: soft, non tender, non distended, no masses or hepatosplenomegaly EXT: Right shoulder-no deformity noted. No focal tenderness including over the acromioclavicular joint as well as biceps tendon. He maintains good range of motion including abduction and internal rotation on the right. Strength at 90 abduction is 5/5 NEURO: AAOx3, no gross focal deficits, cerebellar signs normal, affect appropriate MENTAL STATUS: no evidence of thought disorder, no delusional thought, no evidence of paranoia, thought is non-tangential. SKIN: no rash or significant lesions ASSESSMENT/PLAN: Pain in joint of right shoulder (Primary)-etiology is unclear but very well may be arthritic changes in particular given his prior right shoulder surgery. Discussed options with the patient includingcourse of physical therapy or injection he preferred proceed with injection. - ARTHROCENT ASP &/OR INJ MAJOR JX/BURSA W/O US - Triamcinolone Acetonide (Kenalog) 40 MG/ML inj 40 mg - lidocaine 1 % inj 10 mg Type 2 diabetes mellitus with diabetic polyneuropathy (HCC) Restless leg syndrome-discussed options. One of those options would be adding gabapentin since he does have some degree of peripheral neuropathy. In the end though decided to go with Requip. Start was 0.5 mg 1-3 hours before sleep. After 2 weeks he may increase dose-double the dose. After additional 2 weeks he may increase to 1.5 mg or a total of 3 pills daily. I asked if he does need to make that increase he should contact me as he will need change in his prescription. Jerad Agrawal MDTime Out Procedure: Correct patient identity (Ask Name/Date of ) - Yes Correct Procedure and Consent - Yes Verified Side and Site - Yes Correct patient position - Yes All necessary Equipment/Prior Studies Present - Yes Reviewed special requirements of this patient (i.e. Allergies) - Yes Jerad Agrawal MD After reviewing the risks with the patient (including bleeding, infection and skin atrophy) - understerile conditions and preparing the site with betadine and isospropyl alcohol, the right shoulder joint was injected via anterior approach with lidocaine 1% and triamcinalone 40 mg. The patient tolerated the procedure well without complications and was instructed on subsequent follow-up care (local care and any necessary restrictions). Risks, benefits, and alternatives to the procedures were discussed with the patient and all questions were answered. Patient specific risk factors were reviewed and considered. Jerad Agrawal MD documented in this encounter Nursing Notes * Narendra Moscoso Student - 08/07/2023 10:14 AM EDT The patient has been properly identified by confirmation of name and date of . Chief Complaint Patient presents with Acute Patient is here due to a sore shoulder Patient states its been chronic for 30 years Patient states he takes ibuprofen for pain Patient states no injury documented in this encounter Plan of Treatment Upcoming Encounters Date Type Department Care Team (Late st Contact Info) Description 10/29/2023 10:00 AM EDT Laboratory Laboratory, [address] [address] [facility] [address] [facility] [place] [id number] 11/06/2023 2:40 PM EDT Office Visit [facility] [address] [place] [id number] Jerad Agrawal MD [address] [place] [facility] [place] [address] 11/27/2023 2:00 PM EDT Office Visit [facility] [address] [facility], [place] [address] Jerad Agrawal MD [address] [facility] [place] [id number] Scheduled Orders Name Type Priority Associated Diagnoses Orde r Schedule ARTHROCENT ASP &/OR INJ MAJOR JX/BURSA W/O US Procedures Routine Pain in joint of right shoulder Ordered: 08/07/2023 Scheduled Procedures Name Priority Associated Diagnoses Date/Ti me COLONOSCOPY FLEXIBLE PROXIMA L DIAGNOSTIC Recall History of colonic polyps Health Maintenance Due Date Last Done Comments Diabetic Foot Exam 1979 Zoster Vaccines (1 of 2) 2011 COVID-19 Vaccine ( - season) 2023 Depression Screening 09/13/2023 09/12/2022 HbA1c 10/31/2023 05/01/2023, 05/0 09/2022, 05/30/2022, Additional history exists Albumin/Creatinine Ratio 05/01/2024 023, 05/30/2022, 05/31/2021, Additional history exists B-12 05/01/2024 05/01/2023, 05/12, 05/31/2021, Additional history exists GFR 05/01/2024 05/01/2023, 05/12, 05/31/2021, Additional history exists Diabetic Eye Exam 07/01/2024 07/01/2023, 06/03/2021 COLONOSCOPY-EVERY 3 YRS AGES 18-100 08/01/2025 08/01/2022, 08/01/2022, 12/12/2011, Additional history exists DTaP,Tdap,and Td Vaccines (3 - Td or Tdap) 10/24/2026 10/24/2016, 11/12/2005, 08/16/1991 Lipid Panel 05/01/2028 05/01/2023, 05/12, 05/31/2021, Additional history exists Colonoscopy Discontinued 08/01/2022, 07/10, 12/12/2011, Additional history exists Colorectal Cancer Screening Discontinued Influenza Vaccine (FLU shot) Completed 05/01/2023, 03/14/2022, 03/08/2021, Additional history exists Pneumococcal Vaccine: Pediatrics (0 to 5 Years) and At-Risk Patients (6 to 64 Years) Completed 05/01/2023, 09/06/2021 Cologuard Discontinued Fecal Occult Blood Test Discontinued GARDASIL-HPV IMMUNIZATION SERIES Aged Out No longer eligible based on patient's age to complete this topic Hepatitis B Aged Out No longer eligi ble based on patient's age to complete this topic MENINGOCOCCAL (MENACTRA/MENVEO) Aged Out No longer eligible based on patient's age to complete this topic Sigmoidoscopy Discontinued documented as of this encounter Medical Devices Not on filedocumented as of this encounter Visit Diagnoses Diagnosis Pain in joint of right shoulder- Primary Pain in joint, shoulder region Type 2 diabetes mellitus with diabetic polyneuropathy, without long-term current use of insulin (HCC) Need for vaccination for zoster Need for prophylactic vaccination and inoculation against other viral diseases Acute pain of right shoulder documented in this encounter Administered Medications Inactive Administered Medications - up to 3 most recent administrations Medication Order MAR Action Action Date Dose Rate Site lidocaine 1 % inj 10 mg 10 mg (1 mL), Intra-Articular, ONCE, On Thu08/07/23 at 1300, For 1 dose Given By 08/07/2023 2:00 PM EDT 10 mg Shoul katherin Right Triamcinolone Acetonide (Kenalog) 40 MG/ML inj 40 mg 40 mg, Intra-Articular, ONCE, On Thu08/07/23 at 1300, For 1 dose Given 08/07/2023 2:02 PM EDT 40 mg Yesy Triplett documented in this encounter Care Teams Data Processing Mechanic Relationship Specialty Start Date End Date Jerad Agrawal MD [address] [place] [address] PCP - General 06/09/02 documented as of this encounter"
--- OUTSIDE RECORDS SUMMARY | 2023-11-11 10:33 | External Medical Summary | Summary of Care ---
Author Name Unknown Organization [facility] Address [address] [place] [address] Phone [phone] Care Team Providers Care It Recruiter Name Role Phone Jerad Agrawal MD Primary Care Provider [phone] Reason for Visit * Reason Onset Date Comments Health Maintenance 07/06/2023 Encounter Details Date Type Department Care Team (Late st Contact Info) Description 07/06/2023 Telephone [facility] [address] [place] [address] Jerad Agrawal MD [address] [place] [address] Health Maintenance Allergies No known active allergiesdocumented as of this encounter (statuses as of 07/06/2023) Medications Medication Sig Dispensed Refills Start Date [...] EVERY MORNING 90 Tablet 0 06/27/2023 Active documented as of this encounter (statuses as of 07/06/2023) Active Problems Problem Noted Date Diagnosed Date 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 09/06/2021 Type 2 diabetes mellitus wit h hemoglobin A1c goal of less than 7.0% 07/06/2020 B12 deficiency 06/08/2020 Numbness and tingling in left hand 02/06/2017 Patellofemoral pain syndrome 02/11/2012 HTN, goal below 140/90 06/25/2010 Dyslipidemia, goal LDL below 100 documented as of this encounter (statuses as of 07/06/2023) Resolved Problems Problem Noted Date Diagnosed Date [...] as of this encounter (statuses as of 07/06/2023) Immunizations Name Administration Dates Next Due Pneumococcal Conjugate Vacci ne, 20-valent ([id number]) 05/01/2023 Pneumococcal Polysaccharide PPV23 (Pneumovax) 09/06/2021 Seasonal [...] on file documented as of this encounter Miscellaneous Notes * Telephone Encounter - Ninfa Flynn LPN - 07/06/2023 10:09 AM EST Care Gaps Comprehensive Care Outreach Last Office/Telemedicine Visit: 06/12/2023 (in office), Visit date not found (telemedicine) Next Office Visit: 11/06/2023 Hemoglobin AIC Results: Lab Results Component Value Date/Time HEMOGLOBIN A1C - [facility] 6.5 (H) 05/01/2023 01:31 PM HEMOGLOBIN A1C - [facility] 6.1 (H) 09/12/2022 03:23 PM HEMOGLOBIN A1C - [facility] 6.1 (H) 05/30/2022 07:50 AM HEMOGLOBIN A1C - [facility] 5.7 (H) 06/04/2020 08:06 AM HEMOGLOBIN A1C - [facility] 5.6 12/08/2019 12:34 PM HEMOGLOBIN A1C - [facility] 7.3 (H) 07/22/2019 03:50 PM BP Readings from Last 1 Encounters: 06/12/23 122/78 Reviewed Health Maintenance below: Health Maintenance Topic Date Due Diabetic Foot Exam Never done Zoster Vaccines (1 of 2) Never done COVID-19 Vaccine ( season) Never done Depression Screening 09/13/2023 HbA1c 10/31/2023 Lab ordered and scheduled Care Gap Outreach Action Taken: Spoke to patient documented in this encounter Plan of Treatment Upcoming Encounters Date Type Department Care Team (Late st Contact Info) Description 10/29/2023 10:00 AM EDT Laboratory Laboratory, [place] [address] [place] [facility] [place] [address] [place] [address] [place] [address] 11/06/2023 2:40 PM EDT Office Visit Family [facility], [place] [address] [place] [facility] [place] [address] Jerad Agrawal MD [address] [place] [facility] [place] [address] Scheduled Orders Name Type Priority Associated Diagnoses Orde r Schedule HEMOGLOBIN A1C Lab Routine Type 2 diabetes mellitus with hemoglobin A1c goal of less than 7.0% (HCC) Expected: 10/10/2023, Expires: 07/06/2024 Scheduled Procedures Name Priority Associated Diagnoses Date/Ti me COLONOSCOPY FLEXIBLE PROXIMA L DIAGNOSTIC Recall History of colonic polyps Health Maintenance Due Date Last Done Comments Diabetic Foot Exam 1979 Zoster Vaccines (1 of 2) 2011 COVID-19 Vaccine ( season) 2023 Depression Screening 09/13/2023 09/12/2022 HbA1c [...] as of this encounter Visit Diagnoses Diagnosis Diabetes mellitus screening- Primary Screening for diabetes mellitus Type 2 diabetes mellitus with hemoglobin A1c goal of less than 7.0% (HCC) documented in this encounter Care Teams It Recruiter Relationship Specialty Start Date End Date Jerad Agrawal MD [address] [place] [address] PCP - General 06/09/02 documented as of this encounter
--- OUTSIDE RECORDS SUMMARY | 2023-11-11 10:33 | External Medical Summary | Summary of Care ---
Author Name Unknown Organization [facility] Address [address] [place] [place] [address] Phone [phone] Care Team Providers Care Certified Medical Technician Assistant Name Role Phone Tangela Agrawal MD Primary Care Provider Reason for Visit * Reason Comments eRx-Medication Refill Encounter Details Date Type Department Care Team (Late st Contact Info) Description 08/25/2023 Refill [facility] [address] [place] [address] Tangela Agrawal MD [address] [place] [address] HTN, goal below 140/90; Hyperlipidemia with target LDL less than 100 Allergies No known active allergiesdocumented as of this encounter (statuses as of 08/26/2023) Medications Medication Sig Dispensed Refills Start Date [...] Oral Tablet Extended Release 24 Hour (toPROL XL)Indications:HT N, goal below 140/90 TAKE 1 TABLET BY MOUTH ONCE DAILY 90 Tablet 3 05/14/2023 Active Vitamin B-12 1000 MCG Oral Tablet (Cyanocobalamin)I ndications:B12 deficiency TAKE 1 TABLET BY MOUTH ONCE DAILY 90 Tablet 0 05/29/2023 Active metFORMIN HCl ER 500 MG Oral Tablet Extended Release 24 Hour (Glucophage XR)Indications:Ty pe 2 diabetes mellitus with hemoglobin A1c goal of less than 7.0% (HCC) TAKE TWO TABLETS BY MOUTH DAILY WITH A MEAL 180 Tablet 3 06/12/2023 Active Allopurinol 300 MG Oral Tablet (Zyloprim)Indicat ions:Gouty arthropathy TAKE 1 TABLET BY MOUTH EVERY MORNING 90 Tablet 0 06/27/2023 Active rOPINIRole HCl 0.5 MG Oral Tablet (Requip)Indicatio ns:Restless legs syndrome 1 tab daily at bedtime. After 2 weeks may increase to 2 tabs at bedtime. After another 2 weeks may increase to 3 tabs at bedtime. 90 Tablet 3 08/11/2023 Active amLODIPine Besylate 2.5 MG Oral Tablet (Norvasc)Indicati ons:HTN, goal below 140/90 TAKE 1 TABLET BY MOUTH EVERY MORNING 90 Tablet 1 08/26/2023 Active Lisinopril-hydroC HLOROthiazide 20-25 MG Oral TabletIndications :HTN, goal below 140/90 TAKE 1 TABLET BY MOUTH ONCE DAILY 90 Tablet 1 08/26/2023 Active Atorvastatin Calcium 20 MG Oral Tablet (Lipitor)Indicati ons:Hyperlipidemi a with target LDL less than 100 TAKE 1 TABLET BY MOUTH EVERY EVENING 90 Tablet 1 08/26/2023 Active amLODIPine Besylate 2.5 MG Oral Tablet (Norvasc)Indicati ons:HTN, goal below 140/90 Take 1 Tablet by mouth in the morning. 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 09/06/2021 Type 2 diabetes mellitus wit h hemoglobin A1c goal of less than 7.0% 07/06/2020 B12 deficiency 06/08/2020 Numbness and tingling in left hand 02/06/2017 Patellofemoral pain syndrome 02/11/2012 HTN, goal below 140/90 06/25/2010 Dyslipidemia, goal LDL below 100 documented as of this encounter (statuses as of 08/26/2023) Resolved Problems Problem Noted Date Diagnosed Date [...] as of this encounter (statuses as of 08/26/2023) Immunizations Name Administration Dates Next Due Pneumococcal Conjugate Vacci ne, 20-valent ([id number]) 05/01/2023 Pneumococcal Polysaccharide PPV23 (Pneumovax) 09/06/2021 Seasonal [...] encounter Miscellaneous Notes * Telephone Encounter - Devin White, [facility] - 08/26/2023 10:52 AM EDTSigned Prescriptions: Disp Refills amLODIPine Besylate 2.5 MG Oral Tablet (No*90 Tab*1 Sig: TAKE 1 TABLET BY MOUTH EVERY MORNINGAuthorizing Provider: TANGELA AGRAWAL User: DEVIN MARTINEZ Lisinopril-hydroCHLOROthiazide 20-25 MG Or*90 Tab*1 Sig: TAKE 1 TABLET BY MOUTH ONCE DAILYAuthorizing Provider: TANGELA AGRAWAL User: DEVIN MARTINEZ Atorvastatin Calcium 20 MG Oral Tablet (Li*90Tab*1 Sig: TAKE 1 TABLET BY MOUTH EVERY EVENINGAuthorizing Provider: TANGELA AGRAWAL User: DEVIN MARTINEZ * Telephone Encounter - Devin White [facility] - 08/26/2023 10:50 AM EDT Pending Prescriptions: Disp Refills amLODIPine Besylate 2.5 MG Oral Tablet (N*90 Tab*0 Sig: TAKE 1 TABLET BY MOUTH EVERY MORNING Lisinopril-hydroCHLOROthiazide 20-25 MG O*90 Tab*0 Sig: TAKE 1 TABLET BY MOUTH ONCE DAILY Atorvastatin Calcium 20 MG Oral Tablet (L*90 Tab*0 Sig: TAKE 1 TABLET BY MOUTH EVERY EVENING Last Visit: 08/07/2023 (in office), Visit date not found (telemedicine) Next Visit: 11/06/2023 If no future appointments scheduled, and last appointment is greater than a year ago, please schedule patient for a follow-up appointment Last date the medication was ordered: 09/12/22, 05/29/23 Pharmacy: [id number] [place] Is this request for a controlled substance? No Urine Drug Screen:No results found for this or any previous visit. Patient Phone Numbers Labs: Lab Results Component Value Date/Time CREAT 0.9 05/01/2023 01:31 PM CREAT 1.0 06/04/2020 08:06 AM POTASSIUM 3.8 05/01/2023 01:31 PM POTASSIUM 4.0 06/04/2020 08:06 AM TSH 1.68 02/18/2017 02:26 PM LDLCALC 57 05/01/2023 01:31 PM LDLCALC 106 06/04/2020 08:06 AM LDLDIRECT NOT APPLICABLE 06/04/2020 08:06 AM ALT 33 05/01/2023 01:31 PM ALT 19 06/04/2020 08:06 AM HGBA1C 6.5 (H) 05/01/2023 01:31 PM HGBA1C 5.7 (H) 06/04/2020 08:06 AM documented in this encounter Plan of Treatment Upcoming Encounters Date Type Department Care Team (Late st Contact Info) Description 10/29/2023 10:00 AM EDT Laboratory Laboratory, [place] [address] [place] [address] [facility] [address] [place] [address] 11/06/2023 2:40 PM EDT Office Visit [address] [phone] Tangela Agrawal MD [address] [place] [address] 11/27/2023 2:00 PM EDT Office Visit [address] [phone] Tangela Agrawal MD [address] [place] [address] Scheduled Procedures Name Priority Associated Diagnoses Date/Ti me COLONOSCOPY FLEXIBLE PROXIMA L DIAGNOSTIC Recall History of colonic polyps Health Maintenance Due Date Last Done Comments Diabetic Foot Exam 1979 Zoster Vaccines (1 of 2) 2011 COVID-19 Vaccine (2022- season) 2023 Depression Screening 09/13/2023 09/12/2022 HbA1c [...] as of this encounter Visit Diagnoses Diagnosis HTN, goal below 140/90 Unspecified essential hypertension Hyperlipidemia with target LDL less than 100 Other and unspecified hyperlipidemia documented in this encounter Care Teams Certified Medical Technician Assistant Relationship Specialty Start Date End Date Tangela Agrawal MD [address] [facility] [place] [address] PCP - General 06/09/02 documented as of this encounter
--- OUTSIDE RECORDS SUMMARY | 2023-11-11 10:33 | External Medical Summary | Summary of Care ---
Author Name Unknown Organization [facility] Address [address] [facility] [place] [address] Phone [phone] Care Team Providers Care Cartographic Drafter Name Role Phone Tangela Agrawal MD Primary Care Provider [phone] Reason for Visit * Reason Comments eRx-Medication Refill Encounter Details Date Type Department Care Team (Late st Contact Info) Description 08/26/2023 Refill [facility] [address] [place] [address] Tangela Agrawal MD [address] [place] [address] B12 deficiency Allergies No known active allergiesdocumented as of this encounter (statuses as of 08/27/2023) Medications Medication Sig Dispensed Refills Start Date [...] ONCE DAILY 90 Tablet 3 08/27/2023 Active Vitamin B-12 1000 MCG Oral Tablet (Cyanocobalamin)I ndications:B12 deficiency TAKE 1 TABLET BY MOUTH ONCE DAILY 90 Tablet 0 05/29/2023 Discontinued documented as of this encounter (statuses as of 08/27/2023) Active Problems Problem Noted Date Diagnosed Date 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 09/06/2021 Type 2 diabetes mellitus wit h hemoglobin A1c goal of less than 7.0% 07/06/2020 B12 deficiency 06/08/2020 Numbness and tingling in left hand 02/06/2017 Patellofemoral pain syndrome 02/11/2012 HTN, goal below 140/90 06/25/2010 Dyslipidemia, goal LDL below 100 documented as of this encounter (statuses as of 08/27/2023) Resolved Problems Problem Noted Date Diagnosed Date [...] as of this encounter (statuses as of 08/27/2023) Immunizations Name Administration Dates Next Due Pneumococcal Conjugate Vacci ne, 20-valent ([id number]) 05/01/2023 Pneumococcal Polysaccharide PPV23 (Pneumovax) 09/06/2021 Seasonal [...] encounter Miscellaneous Notes * Telephone Encounter - Tangela Agrawal MD - 08/27/2023 2:16 PM EDTSigned Prescriptions: Disp Refills Vitamin B-12 1000 MCG Oral Tablet (Cyanoco*90 Tab*3 Sig: TAKE 1 TABLET BY MOUTH ONCE DAILYAuthorizing Provider: TANGELA AGRAWAL * Telephone Encounter - Jennifer Jenkins LPN - 08/27/2023 8:13 AM EDTPending Prescriptions: Disp Refills Vitamin B-12 1000 MCG Oral Tablet [Pharmac*90 Tab*0 Sig: TAKE 1 TABLET BY MOUTH ONCE DAILY * Telephone Encounter - Imani Elliott - 08/27/2023 5:52 AM EDTPending Prescriptions: Disp Refills Vitamin B-12 1000 MCG Oral Tablet [Pharmac*90 Tab*0 Sig: TAKE 1 TABLET BY MOUTH ONCE DAILY documented in this encounter Plan of Treatment Upcoming Encounters Date Type Department Care Team (Late st Contact Info) Description 10/29/2023 10:00 AM EDT [facility] [place] [address] [facility] [phone] [facility] [address] [facility] [place] [id number] 11/06/2023 2:40 PM EDT Office Visit [facility] [address] [facility] [phone] Tangela Agrawal MD [address] [place] [facility] [place] [address] 11/27/2023 2:00 PM EDT [facility] [place] [address] [facility] [address] Tangela Agrawal MD [address] [place] [address] Scheduled Procedures Name Priority Associated Diagnoses Date/Ti me COLONOSCOPY FLEXIBLE PROXIMA L DIAGNOSTIC Recall History of colonic polyps Health Maintenance Due Date Last Done Comments Diabetic Foot Exam 1979 Zoster Vaccines (1 of 2) 2011 COVID-19 Vaccine ( - 2022- season) 2023 Depression Screening 09/13/2023 09/12/2022 HbA1c [...] as of this encounter Visit Diagnoses Diagnosis B12 deficiency Other B-complex deficiencies documented in this encounter Care Teams Cartographic Drafter Relationship Specialty Start Date End Date Tangela Agrawal MD [address] [place] [address] PCP - General 06/09/02 documented as of this encounter
--- OUTSIDE RECORDS SUMMARY | 2023-11-11 10:33 | External Medical Summary | Summary of Care ---
Author Name Unknown Organization [facility] Address [address] [facility] [place] [address] Phone [phone] Care Team Providers Care Slope Hoist Operator Name Role Phone Jerad Agrawal MD Primary Care Provider Reason for Visit * Reason Onset Date Comments Med Request 08/11/2023 Encounter Details Date Type Department Care Team (Late st Contact Info) Description 08/11/2023 Telephone [facility] [address] [place] [address] Jerad Agrawal MD [address] [place] [address] Med Request Allergies No known active allergiesdocumented as of this encounter (statuses as of 08/11/2023) Medications Medication Sig Dispensed Refills Start Date End Date Status ASPIRIN EC 81 MG PO TBEC Take one pill daily 100 Tab 3 11/25/2011 Active VITAMIN D3 2000 UNITS PO CAPS Take 1 capsule daily. 90 Cap 1 02/10/2014 Active amLODIPine Besylate 2.5 MG Oral Tablet (Norvasc)Indications :HTN, goal below 140/90 Take 1 Tablet by [...] Active Vitamin B-12 1000 MCG Oral Tablet (Cyanocobalamin)Marina cations:B12 deficiency TAKE 1 TABLET BY MOUTH ONCE DAILY 90 Tablet 0 05/29/2023 Active Atorvastatin Calcium 20 MG Oral Tablet (Lipitor)Indications :Hyperlipidemia with target LDL less than 100 TAKE 1 TABLET BY MOUTH EVERY EVENING 90 Tablet 0 05/29/2023 Active Lisinopril-hydroCHLO ROthiazide 20-25 MG Oral TabletIndications:HT N, goal below 140/90 TAKE 1 TABLET BY MOUTH ONCE DAILY 90 Tablet 0 05/29/2023 Active metFORMIN HCl ER 500 MG Oral Tablet Extended Release 24 Hour (Glucophage XR)Indications:Type 2 diabetes mellitus with hemoglobin A1c goal of less than 7.0% (HCC) TAKE TWO TABLETS BY MOUTH DAILY WITH A MEAL 180 Tablet 3 06/12/2023 Active Allopurinol 300 MG Oral Tablet (Zyloprim)Indication s:Gouty arthropathy TAKE 1 TABLET BY MOUTH EVERY MORNING 90 Tablet 0 06/27/2023 Active rOPINIRole HCl 0.5 MG Oral Tablet (Requip)Indications: Restless legs syndrome 1 tab daily at bedtime. After 2 weeks may increase to 2 tabs at bedtime. After another 2 weeks may increase to 3 tabs at bedtime. 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 09/06/2021 Type 2 diabetes mellitus wit h hemoglobin A1c goal of less than 7.0% 07/06/2020 B12 deficiency 06/08/2020 Numbness and tingling in left hand 02/06/2017 Patellofemoral pain syndrome 02/11/2012 HTN, goal below 140/90 06/25/2010 Dyslipidemia, goal LDL below 100 documented as of this encounter (statuses as of 08/11/2023) Resolved Problems Problem Noted Date Diagnosed Date [...] as of this encounter (statuses as of 08/11/2023) Immunizations Name Administration Dates Next Due Pneumococcal Conjugate Vacci ne, 20-valent ([id number]) 05/01/2023 Pneumococcal Polysaccharide PPV23 (Pneumovax) 09/06/2021 Seasonal [...] encounter Miscellaneous Notes * Telephone Encounter - Maria Elena Carrizales CPhT - 08/11/2023 9:32 AM EDT Patient calling to ask if requip was being ordered form his office visit on 08/07/2023 for restlessleg, patient uses [facility] Thank you, Maria Elena Carrizales Circular Head Saw Operator II [facility] ([facility]) 08/11/2023 9:33 AM documented in this encounter Plan of Treatment Upcoming Encounters Date Type Department Care Team (Late st Contact Info) Description 10/29/2023 10:00 AM EDT [facility] [place] [address] [facility] [phone] [place], [facility] [address] [facility] [place] [id number] 11/06/2023 2:40 PM EDT Office Visit [facility] [address] [facility] [place] [address] Jerad Agrawal MD [address] [place] [address] 11/27/2023 2:00 PM EDT Office Visit [facility] [address] [facility] [address] Jerad Agrawal MD [address] [place] [address] Scheduled Procedures Name Priority Associated Diagnoses Date/Ti me COLONOSCOPY FLEXIBLE PROXIMA L DIAGNOSTIC Recall History of colonic polyps Health Maintenance Due Date Last Done Comments Diabetic Foot Exam 1979 Zoster Vaccines (1 of 2) 2011 COVID-19 Vaccine ( - season) 2023 Depression Screening 09/13/2023 09/12/2022 HbA1c 10/31/2023 05/01/2023, 05/09/2022, 05/30/2022, Additional history exists Albumin/Creatinine Ratio 05/01/2024 [...] as of this encounter Visit Diagnoses Diagnosis Restless legs syndrome- Primary Restless legs syndrome (RLS) documented in this encounter Care Teams Slope Hoist Operator Relationship Specialty Start Date End Date Jerad Agrawal MD [address] [place] [address] PCP - General 06/09/02 documented as of this encounter
--- OUTSIDE RECORDS SUMMARY | 2023-11-11 10:33 | External Medical Summary | Summary of Care ---
Author Name Unknown Organization [facility] Address [address] [place] [address] Phone [phone] Care Team Providers Care Van Helper Name Role Phone Jerad Agrawal MD Primary Care Provider Reason for Visit * Reason Comments Outpatient Testing Encounter Details Date Type Department Care Team (Late st Contact Info) Description 10/29/2023 10:00 AM EDT Laboratory Laboratory, [facility] [address] [place] [address] [facility], [facility] [address] [place] [address] Type 2 diabetes mellitus with hemoglobin A1c goal of less than 7.0% ([facility]) Allergies No known active allergiesdocumented as of this encounter (statuses as of 10/29/2023) Medications Medication Sig Dispensed Refills Start Date [...] Oral Tablet (Norvasc)Indications :HTN, goal below 140/90 TAKE 1 TABLET BY MOUTH EVERY MORNING 90 Tablet 1 08/26/2023 Active Lisinopril-hydroCHLO ROthiazide 20-25 MG Oral TabletIndications:HT [...] 08/27/2023 Active Allopurinol 300 MG Oral Tablet (Zyloprim)Indication s:Gouty arthropathy TAKE 1 TABLET BY MOUTH EVERY MORNING 90 Tablet 2 09/23/2023 Active documented as of this encounter (statuses as of 10/29/2023) Active Problems Problem Noted Date Diagnosed Date 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 09/06/2021 Type 2 diabetes mellitus wit h hemoglobin A1c goal of less than 7.0% 07/06/2020 B12 deficiency 06/08/2020 Numbness and tingling in left hand 02/06/2017 Patellofemoral pain syndrome 02/11/2012 HTN, goal below 140/90 06/25/2010 Dyslipidemia, goal LDL below 100 documented as of this encounter (statuses as of 10/29/2023) Resolved Problems Problem Noted Date Diagnosed Date [...] as of this encounter (statuses as of 10/29/2023) Immunizations Name Administration Dates Next Due Pneumococcal Conjugate Vacci ne, 20-valent ([id number]) 05/01/2023 Pneumococcal Polysaccharide PPV23 (Pneumovax) 09/06/2021 Seasonal [...] on file documented as of this encounter Plan of Treatment Upcoming Encounters Date Type Department Care Team (Late st Contact Info) Description 11/06/2023 2:40 PM EDT Office Visit [facility] [address] [place] [address] Jerad Agrawal MD [address] [place] [address] 11/27/2023 2:00 PM EDT Office Visit [facility] [address] [place] [address] Jerad Agrawal MD [address] [place] [address] Pending Results Name Type Priority Associated Diagnoses Date /Time HEMOGLOBIN A1C Lab Routine Type 2 diabetes mellitus with hemoglobin A1c goal of less than 7.0% ([facility]) 10/29/2023 9:59 AM EDT Scheduled Procedures Name Priority Associated Diagnoses Date/Ti me COLONOSCOPY FLEXIBLE PROXIMA L DIAGNOSTIC Recall History of colonic polyps Health Maintenance Due Date Last Done Comments Diabetic Foot Exam 1979 Cologuard 2006 Fecal Occult Blood Test 2006 [...] exists Diabetic Eye Exam 07/01/2024 07/01/2023, 06/03/2021 Colonoscopy 08/01/2025 08/01/2022, 07/10, 12/12/2011, Additional history [...] Diagnoses Diagnosis Type 2 diabetes mellitus with hemoglobin A1c goal of less than 7.0% (HCC) documented in this encounter Care Teams Van Helper Relationship Specialty Start Date End Date Jerad Agrawal MD [address] [place] [address] PCP - General 06/09/02 documented as of this encounter
--- OUTSIDE RECORDS SUMMARY | 2023-11-11 10:33 | External Medical Summary | Summary of Care ---
Author Name Unknown Organization [facility] Address [address] [place] [facility] [place] [address] Phone [phone] Care Team Providers Care Attendant Campground Name Role Phone Tangela Agrawal MD Primary Care Provider Reason for Visit * Reason Comments eRx-Medication Refill Encounter Details Date Type Department Care Team (Late st Contact Info) Description 09/23/2023 Refill [facility] [address] [place] [address] Tangela Agrawal MD [address] [place] [address] Gouty arthropathy Allergies No known active allergiesdocumented as of this encounter (statuses as of 09/23/2023) Medications Medication Sig Dispensed Refills Start Date [...] 08/27/2023 Active Allopurinol 300 MG Oral Tablet (Zyloprim)Indicat ions:Gouty arthropathy TAKE 1 TABLET BY MOUTH EVERY MORNING 90 Tablet 2 09/23/2023 Active Allopurinol 300 MG Oral Tablet (Zyloprim)Indicat ions:Gouty arthropathy TAKE 1 TABLET BY MOUTH EVERY MORNING 90 Tablet 0 06/27/2023 Discontinued documented as of this encounter (statuses as of 09/23/2023) Active Problems Problem Noted Date Diagnosed Date 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 09/06/2021 Type 2 diabetes mellitus wit h hemoglobin A1c goal of less than 7.0% 07/06/2020 B12 deficiency 06/08/2020 Numbness and tingling in left hand 02/06/2017 Patellofemoral pain syndrome 02/11/2012 HTN, goal below 140/90 06/25/2010 Dyslipidemia, goal LDL below 100 documented as of this encounter (statuses as of 09/23/2023) Resolved Problems Problem Noted Date Diagnosed Date [...] as of this encounter (statuses as of 09/23/2023) Immunizations Name Administration Dates Next Due Pneumococcal Conjugate Vacci ne, 20-valent ([id number]) 05/01/2023 Pneumococcal Polysaccharide PPV23 (Pneumovax) 09/06/2021 Seasonal [...] encounter Miscellaneous Notes * Telephone Encounter - Geeta Navarrete RPh - 09/23/2023 7:33 PM EDT Signed Prescriptions: Disp Refills Allopurinol 300 MG Oral Tablet (Zyloprim) 90 Tab*2 Sig: TAKE 1 TABLET BY MOUTH EVERY MORNINGAuthorizing Provider: TANGELA AGRAWAL User: GEETA NAVARRETE E documented in this encounter Plan of Treatment Upcoming Encounters Date Type Department Care Team (Late st Contact Info) Description 10/29/2023 10:00 AM EDT Laboratory Laboratory, [place] [address] [facility], [place] [phone] [facility] [address] [facility] [place] [address] 11/06/2023 2:40 PM EDT [facility] [address] [facility] [phone] Tangela Agrawal MD [address] [facility] [place] [id number] 11/27/2023 2:00 PM EDT [facility] [place] [address] [facility] [address] Tangela Agrawal MD [address] [facility] [place] [id number] Scheduled Procedures Name Priority Associated Diagnoses Date/Ti [...] as of this encounter Visit Diagnoses Diagnosis Gouty arthropathy Gouty arthropathy, unspecified documented in this encounter Care Teams Attendant Campground Relationship Specialty Start Date End Date Tangela Agrawal MD [address] [place] [address] PCP - General 06/09/02 documented as of this encounter
--- OUTSIDE RECORDS SUMMARY | 2023-11-11 10:34 | External Medical Summary | Summary of Care ---
Author Name Unknown Organization [facility] Address [address] [place] [address] Phone [phone] Care Team Providers Care Jigman Name Role Phone Tangela Agrawal MD Primary Care Provider [phone] Reason for Visit * Reason Comments eRx-Medication Refill Encounter Details Date Type Department Care Team (Late st Contact Info) Description 06/10/2023 Refill Pharmacy, [address] [phone] Tangela Agrawal MD [address] [place] [address] Type 2 diabetes mellitus with hemoglobin A1c goal of less than 7.0% ([facility]) Allergies No known active allergiesdocumented as of this encounter (statuses as of 06/10/2023) Medications Medication Sig Dispensed Refills Start Date [...] the morning. 90 Tablet 3 09/12/2022 Active Allopurinol 300 MG Oral Tablet (Zyloprim)Indicat ions:Gouty arthropathy TAKE ONE TABLET BY MOUTH IN THE MORNING 90 Tablet 2 10/12/2022 Active Meclizine HCl 25 MG Oral Tablet [...] EVERY EVENING 90 Tablet 0 05/29/2023 Active Lisinopril-hydroC HLOROthiazide 20-25 MG Oral TabletIndications :HTN, goal below 140/90 TAKE 1 TABLET BY MOUTH ONCE DAILY 90 Tablet 0 05/29/2023 Active metFORMIN HCl ER 500 MG Oral Tablet Extended Release 24 Hour (Glucophage XR)Indications:Ty pe 2 diabetes mellitus with hemoglobin A1c goal of less than 7.0% (HCC) TAKE FOUR TABLETS BY MOUTH DAILY WITH A MEAL 360 Tablet 3 06/10/2023 Active metFORMIN HCl ER 500 MG Oral Tablet Extended Release 24 Hour (Glucophage XR)Indications:Ty pe 2 diabetes mellitus with hemoglobin A1c goal of less than 7.0% (HCC) TAKE TwoTABLETS BY MOUTH DAILY WITH A MEAL 0 05/01/2023 4 Discontinued documented as of this encounter (statuses as of 06/10/2023) Active Problems Problem Noted Date Diagnosed Date 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 09/06/2021 Type 2 diabetes mellitus wit h hemoglobin A1c goal of less than 7.0% 07/06/2020 B12 deficiency 06/08/2020 Numbness and tingling in left hand 02/06/2017 Patellofemoral pain syndrome 02/11/2012 HTN, goal below 140/90 06/25/2010 Dyslipidemia, goal LDL below 100 documented as of this encounter (statuses as of 06/10/2023) Resolved Problems Problem Noted Date Diagnosed Date [...] as of this encounter (statuses as of 06/10/2023) Immunizations Name Administration Dates Next Due Pneumococcal Conjugate Vacci ne, 20-valent ([id number]) 05/01/2023 Pneumococcal Polysaccharide PPV23 (Pneumovax) 09/06/2021 Seasonal [...] encounter Miscellaneous Notes * Telephone Encounter - Nabeel Goldstein RPh - 06/10/2023 7:58 AM EST Signed Prescriptions: Disp Refills metFORMIN HCl ER 500 MG Oral Tablet Extend*360 Ta*3 Sig: TAKE FOUR TABLETS BY MOUTH DAILY WITH A MEALAuthorizing Provider: TANGELA AGRAWAL User: NABEEL GOLDSTEIN documented in this encounter Plan of Treatment Upcoming Encounters Date Type Department Care Team (Late st Contact Info) Description 06/12/2023 8:40 AM EST Office Visit [address] [place] [address] Tangela Agrawal MD [address] [place] [facility] [place] [address] 11/06/2023 2:40 PM EDT Office Visit [facility] [place] [address] [place] [facility] [place] [address] Tangela Agrawal MD [address] [facility] [place] [id number] Scheduled Procedures Name Priority Associated Diagnoses Date/Ti me COLONOSCOPY FLEXIBLE PROXIMA L DIAGNOSTIC Recall History of colonic polyps Health Maintenance Due Date Last Done Comments COVID-19 Vaccine (#1) 1961 Diabetic Foot Exam 1979 Zoster Vaccines (1 of 2) 2011 Hepatitis B (1 of 3 - Risk 3-dose series) 2021 Diabetic Eye Exam 06/03/2022 06/03/2021 Depression Screening 09/13/2023 09/12/2022 HbA1c 10/31/2023 05/01/2023, 05/09/2022, 05/30/2022, Additional history exists Albumin/Creatinine Ratio 05/01/2024 023, 05/30/2022, 05/31/2021, Additional history exists B-12 05/01/2024 05/01/2023, 05/12, 05/31/2021, Additional history exists GFR 05/01/2024 05/01/2023, 05/12, 05/31/2021, Additional history exists COLONOSCOPY-EVERY 3 YRS AGES 18-100 08/01/2025 08/01/2022, [...] (HCC) documented in this encounter Care Teams Jigman Relationship Specialty Start Date End Date Tangela Agrawal MD [address] [place] [address] PCP - General 06/09/02 documented as of this encounter
--- OUTSIDE RECORDS SUMMARY | 2023-11-11 10:34 | External Medical Summary | Summary of Care ---
Author Name Unknown Organization [facility] Address [address] [facility] [place] [address] Phone [phone] Care Team Providers Care Dressed Poultry Grader Name Role Phone Tangela Agrawal MD Primary Care Provider Reason for Visit * Reason Comments eRx-Medication Refill Encounter Details Date Type Department Care Team (Late st Contact Info) Description 06/27/[address] 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 09/06/2021 Type 2 diabetes mellitus wit h hemoglobin A1c goal of less than 7.0% 07/06/2020 B12 deficiency 06/08/2020 Numbness and tingling in left hand 02/06/2017 Patellofemoral pain syndrome 02/11/2012 HTN, goal below 140/90 06/25/2010 Dyslipidemia, goal LDL below 100 documented as of this encounter (statuses as of 06/27/2023) Resolved Problems Problem Noted Date Diagnosed Date [...] as of this encounter (statuses as of 06/27/2023) Immunizations Name Administration Dates Next Due Pneumococcal Conjugate Vacci ne, 20-valent ([id number]) 05/01/2023 Pneumococcal Polysaccharide PPV23 (Pneumovax) 09/06/2021 Seasonal [...] encounter Miscellaneous Notes * Telephone Encounter - Cesilia Iqbal RPh - 06/27/2023 9:34 AM EST Signed Prescriptions: Disp Refills Allopurinol 300 MG Oral Tablet (Zyloprim) 90 Tab*0 Sig: TAKE 1 TABLET BY MOUTH EVERY MORNINGAuthorizing Provider: TANGELA AGRAWAL User: CESILIA IQBAL- documented in this encounter Plan of Treatment Upcoming Encounters Date Type Department Care Team (Late st Contact Info) Description 11/06/2023 2:40 PM EDT Office Visit [place] [address] [place] [facility] [place] [address] Tangela Agrawal MD [address] [place] [address] Scheduled Procedures Name Priority Associated Diagnoses Date/Ti me COLONOSCOPY FLEXIBLE PROXIMA L DIAGNOSTIC Recall History of colonic polyps Health Maintenance Due Date Last Done Comments Diabetic Foot Exam 1979 Zoster Vaccines (1 of 2) 2011 Diabetic Eye Exam 06/03/2022 06/03/2021 COVID-19 Vaccine ( - 2022- season) 2023 [...] unspecified documented in this encounter Care Teams Dressed Poultry Grader Relationship Specialty Start Date End Date Tangela Agrawal MD [address] [place] [address] PCP - General 06/09/02 documented as of this encounter
--- OUTSIDE RECORDS SUMMARY | 2023-11-11 10:34 | External Medical Summary | Summary of Care ---
Author Name Unknown Organization [facility] Address [address] [place] [address] Phone [phone] Care Team Providers Care Electronic Parts Salesperson Name Role Phone Jerad Agrawal MD Primary Care Provider Reason for Visit * Reason Comments Procedure * Evaluate & Treat - Unlimited Visits (Within 30 days (routine)) - Pending Review Specialty Diagnoses / Procedures Referred By Yolanda rodas Referred To Contact Ophthalmology Diagnoses Skin tag Jerad Agrawal MD [address] [place] [address] Josr Ramachandran DO [address] [facility] [address] Referral ID Status Reason Start Date Expiration Date Visits Requested Visits Authorized [id number] Pending Review Specialty Services Required [phone] Encounter Details Date Type Department Care Team (Late st Contact Info) Description 05/18/2023 8:00 AM EST Office Visit Ophthalmology, [facility] [address] [place] [address] Josr Ramachandran DO [address] [place] [address] Papilloma of skin of right lower eyelid*; Papilloma of skin of right upper eyelid Allergies No known active allergiesdocumented as of this encounter (statuses as of 05/18/2023) Medications Medication Sig Dispensed Refills Start Date End Date Status ASPIRIN EC 81 MG PO TBEC Take one pill daily 100 Tab 3 11/25/2011 Active VITAMIN D3 2000 UNITS PO CAPS Take 1 capsule daily. 90 Cap 1 02/10/2014 Active Vitamin B-12 1000 MCG Oral Tablet (Cyanocobalamin)Marina cations:B12 deficiency TAKE 1 TABLET BY MOUTH ONCE DAILY 90 Tablet 3 06/03/2022 Active Lisinopril-hydroCHLO ROthiazide 20-25 MG Oral TabletIndications:HT N, goal below 140/90 TAKE 1 TABLET BY MOUTH ONCE DAILY 90 Tablet 2 09/08/2022 Active Atorvastatin Calcium 20 MG Oral Tablet (Lipitor)Indications :Hyperlipidemia with target LDL less than 100 TAKE ONE TABLET BY MOUTH ONE TIME DAILY IN THE EVENING 90 Tablet 2 09/08/2022 Active amLODIPine Besylate 2.5 MG Oral Tablet (Norvasc)Indications :HTN, goal below 140/90 Take 1 Tablet by mouth in the morning. 90 Tablet 3 09/12/2022 Active Allopurinol 300 MG Oral Tablet (Zyloprim)Indication s:Gouty arthropathy TAKE ONE TABLET BY MOUTH IN THE MORNING 90 Tablet 2 10/12/2022 Active Meclizine HCl 25 MG Oral Tablet (Antivert) Take 0.5-1 Tablets by mouth 3 times a day as needed for Dizziness. 30 Tablet 1 05/01/2023 Active metFORMIN HCl ER 500 MG Oral Tablet Extended Release 24 Hour (Glucophage XR)Indications:Type 2 diabetes mellitus with hemoglobin A1c goal of less than 7.0% (HCC) TAKE TwoTABLETS BY MOUTH DAILY WITH A MEAL 0 05/01/2023 Active Metoprolol Succinate ER 50 MG Oral Tablet Extended Release 24 Hour (toPROL XL)Indications:HTN, goal below 140/90 TAKE 1 TABLET BY MOUTH ONCE DAILY 90 Tablet 3 05/14/2023 Active Hospital, Clinic, or Other Facility Administered Medication Ordered Dose Route Frequency Start Date End Date Status lidocaine-epinephrine 2 %-1:352348 inj 100 mgIndications:Papilloma of skin of right lower eyelid,Papilloma of skin of right upper eyelid 100 mg SC ONCE 05/18/2023 05/18/2023 End ed Erythromycin ophthalmic ointmentIndications:Papill desiree of skin of right lower eyelid,Papilloma of skin of right upper eyelid RT EYE ONCE 05/18/2023 05/18/2023 End ed documented as of this encounter (statuses as of 05/18/2023) Active Problems Problem Noted Date Diagnosed Date 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 09/06/2021 Type 2 diabetes mellitus wit h hemoglobin A1c goal of less than 7.0% 07/06/2020 B12 deficiency 06/08/2020 Numbness and tingling in left hand 02/06/2017 Patellofemoral pain syndrome 02/11/2012 HTN, goal below 140/90 06/25/2010 Dyslipidemia, goal LDL below 100 documented as of this encounter (statuses as of 05/18/2023) Resolved Problems Problem Noted Date Diagnosed Date [...] as of this encounter (statuses as of 05/18/2023) Immunizations Name Administration Dates Next Due Pneumococcal Conjugate Vacci ne, 20-valent ([id number]) 05/01/2023 Pneumococcal Polysaccharide PPV23 (Pneumovax) 09/06/2021 Seasonal Influenza, PF, 6 M & above, IM , (FluLaval or Fluzone) 05/01/2023,03/14/2022,03/08/2021,02/06 Seasonal Influenza, Quadriva lent, No Preserve, IM 04/25/2016,04/24/2015 Seasonal Influenza, Split, I IV3, With Preserve, Inj 02/10/2014,04/20/2013,04/23/2012,01/26 TD - Tetanus/Diptheria (ADULT) 08/16/1991 TD, Preservative Free 10/24/2016 TDAP (age 12 [...] on file documented as of this encounter Progress Notes * Josr Ramachandran, - 05/18/2023 8:11 AM EST Name: Bg Gonsalves Date: 05/18/2023 Outpatient Procedure Note: Pre op diagnosis: lesion of the right eye both eyelids Post op Daignosis: same Procedure: excision of lesions right eye both lids Surgeon: Madie Anesthesia: 2% lidocaine with epinephrine 1:100k 1.0cc Complications: None EBL: none Drains: NONE Urine: NONE IVF: NONE Specimen: none Procedure: the patient was escorted to the procedure room where a time out was performed to identify the patient and verify the procedure. Alcaine was instilled in the eye. A 30 gauge needle was used to introduce lidocaine under the lesions externally in the right eye both lids. The patient was prepped in routine aseptic fashion. The lesions were excised at the base with caren scissors. Hemostasis achieved with hot tip cautery. Emycin ointment applied. Recommend f/u PRN. Blood loss minimal . No complications. Escorted from the procedure room. Josr Ramachandran DO documented in this encounter Plan of Treatment Upcoming Encounters Date Type Department Care Team (Late st Contact Info) Description 06/12/2023 8:40 AM EST Office Visit [place] [address] [place] [address] Jerad Agrawal MD [address] [place] [address] 11/06/2023 2:40 PM EDT Office Visit [facility] [address] [place] [address] Jerad Agrawal MD [address] [place] [address] Scheduled Procedures Name Priority Associated [...] as of this encounter Visit Diagnoses Diagnosis Papilloma of skin of right lower eyelid- Primary Papilloma of skin of right upper eyelid documented in this encounter Administered Medications Inactive Administered Medications - up to 3 most recent administrations Medication Order MAR Action Action Date Dose Rate Site Erythromycin ophthalmic ointment Right eye, ONCE, On Thu05/18/23 at 0845, For 1 dose Given 05/18/2023 8:18 AM EST 1 g lidocaine-epinephrine 2 %-1:201844 inj 100 mg 100 mg (5 mL), Subcutaneous, ONCE, On Thu05/18/23 at 0845, For 1 dose Given 05/18/2023 8:14 AM EST 100 mg Eye R ight documented in this encounter Care Teams Electronic Parts Salesperson Relationship Specialty Start Date End Date Jerad Agrawal MD [address] [place] [address] PCP - General 06/09/02 documented as of this encounter
--- OUTSIDE RECORDS SUMMARY | 2023-11-11 10:34 | External Medical Summary | Summary of Care ---
Author Name Unknown Organization [facility] Address [address] [place] [address] Phone [phone] Care Team Providers Care Saddle Stitching Machine Operator Name Role Phone Jerad Agrawal MD Primary Care Provider Encounter Details Date Type Department Care Team (Late st Contact Info) Description 07/02/2023 Orders Only [facility] [address] [place] [address] Jerad Agrawal MD [address] [place] [address] Allergies No known active allergiesdocumented as of this encounter (statuses as of 07/02/2023) Medications Medication Sig Dispensed Refills Start Date [...] as of this encounter (statuses as of 07/02/2023) Active Problems Problem Noted Date Diagnosed Date 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 09/06/2021 Type 2 diabetes mellitus wit h hemoglobin A1c goal of less than 7.0% 07/06/2020 B12 deficiency 06/08/2020 Numbness and tingling in left hand 02/06/2017 Patellofemoral pain syndrome 02/11/2012 HTN, goal below 140/90 06/25/2010 Dyslipidemia, goal LDL below 100 documented as of this encounter (statuses as of 07/02/2023) Resolved Problems Problem Noted Date Diagnosed Date [...] as of this encounter (statuses as of 07/02/2023) Immunizations Name Administration Dates Next Due Pneumococcal Conjugate Vacci ne, 20-valent ([id number]) 05/01/2023 Pneumococcal Polysaccharide PPV23 (Pneumovax) 09/06/2021 Seasonal [...] Description 11/06/2023 2:40 PM EDT Office Visit [facility] [address] [place] [address] Jerad Agrawal MD [address] [place] [address] Scheduled Procedures Name Priority Associated [...] 05/31/2021, Additional history exists Diabetic Eye Exam 07/02/2024 07/01/2023, 06/03/2021 COLONOSCOPY-EVERY 3 YRS AGES 18-100 [...] Not on filedocumented as of this encounter Procedures Procedure Name Priority Date/Time Associated Diagnosis Comments DIABETIC EYE EXAM Routine 07/01/2023 documented in this encounter Results * DIABETIC EYE EXAM (07/01/2023) 07/01/2023 History Per Patient OTHER OUTSIDE LAB (SEE SCANNED REPORT) documented in this encounter Care Teams Saddle Stitching Machine Operator Relationship Specialty Start Date End Date Jerad Agrawal MD [address] [place] [address] PCP - General 06/09/02 documented as of this encounter
--- OUTSIDE RECORDS SUMMARY | 2023-11-11 10:34 | External Medical Summary | Summary of Care ---
Author Name Unknown Organization [facility] Address [address] [place] [facility] [facility] [place] [address] Phone [phone] Care Team Providers Care Steeler Name Role Phone Tangela Agrawal MD Primary Care Provider Reason for Visit * Reason Comments eRx-Medication Refill Encounter Details Date Type Department Care Team (Late st Contact Info) Description 05/28/2023 Refill [facility] [address] [place] [address] Tangela Agrawal MD [address] [place] [address] B12 deficiency; Hyperlipidemia with target LDL less than 100; HTN, goal below 140/90 Allergies No known active allergiesdocumented as of this encounter (statuses as of 05/29/2023) Medications Medication Sig Dispensed Refills Start Date [...] ONCE DAILY 90 Tablet 0 05/29/2023 Active Vitamin B-12 1000 MCG Oral Tablet (Cyanocobalamin)I ndications:B12 deficiency TAKE 1 TABLET BY MOUTH ONCE DAILY 90 Tablet 3 06/03/2022 4 Discontinued Lisinopril-hydroC HLOROthiazide 20-25 MG Oral TabletIndications :HTN, goal below 140/90 TAKE 1 TABLET BY MOUTH ONCE DAILY 90 Tablet 2 09/08/2022 4 Discontinued Atorvastatin Calcium 20 MG Oral Tablet (Lipitor)Indicati ons:Hyperlipidemi a with target LDL less than 100 TAKE ONE TABLET BY MOUTH ONE TIME DAILY IN THE EVENING 90 Tablet 2 09/08/2022 4 Discontinued documented as of this encounter (statuses as of 05/29/2023) Active Problems Problem Noted Date Diagnosed Date 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 09/06/2021 Type 2 diabetes mellitus wit h hemoglobin A1c goal of less than 7.0% 07/06/2020 B12 deficiency 06/08/2020 Numbness and tingling in left hand 02/06/2017 Patellofemoral pain syndrome 02/11/2012 HTN, goal below 140/90 06/25/2010 Dyslipidemia, goal LDL below 100 documented as of this encounter (statuses as of 05/29/2023) Resolved Problems Problem Noted Date Diagnosed Date [...] as of this encounter (statuses as of 05/29/2023) Immunizations Name Administration Dates Next Due Pneumococcal Conjugate Vacci ne, 20-valent ([id number]) 05/01/2023 Pneumococcal Polysaccharide PPV23 (Pneumovax) 09/06/2021 Seasonal [...] Telephone Encounter - Tangela Agrawal MD - 05/29/2023 4:52 PM ESTSigned Prescriptions: Disp Refills Vitamin B-12 1000 MCG Oral Tablet (Cyanoco*90 Tab*0 Sig: TAKE 1 TABLET BY MOUTH ONCE DAILY Authorizing Provider: TANGELA AGRAWAL Atorvastatin Calcium 20 MG Oral Tablet (Li*90 Tab*0 Sig: TAKE 1 TABLET BY MOUTH EVERY EVENING Authorizing Provider: TANGELA AGRAWAL Lisinopril-hydroCHLOROthiazide 20-25 MG Or*90 Tab*0 Sig: TAKE 1 TABLET BY MOUTH ONCE DAILY Authorizing Provider: TANGELA AGRAWAL * Telephone Encounter - Shannan Marrufo LPN - 05/29/2023 8:47 AM ESTPending Prescriptions: Disp Refills Vitamin B-12 1000 MCG Oral Tablet [Pharmac*90 Tab*0 Sig: TAKE 1 TABLET BY MOUTH ONCE DAILY Atorvastatin Calcium 20 MG Oral Tablet [Ph*90 Tab*0 Sig: TAKE 1 TABLET BY MOUTH EVERY EVENING Lisinopril-hydroCHLOROthiazide 20-25 MG Or*90 Tab*0 Sig: TAKE 1 TABLET BY MOUTH ONCE DAILY * Telephone Encounter - Imani Elliott - 05/28/2023 4:51 PM ESTPending Prescriptions: Disp Refills Vitamin B-12 1000 MCG Oral Tablet [Pharmac*90 Tab*0 Sig: TAKE 1TABLET BY MOUTH ONCE DAILY Atorvastatin Calcium 20 MG Oral Tablet [Ph*90 Tab*0 Sig: TAKE 1 TABLET BY MOUTH EVERY EVENING Lisinopril- hydroCHLOROthiazide 20-25 MG Or*90 Tab*0 Sig: TAKE 1 TABLET BY MOUTH ONCE DAILY documented in this encounter Plan of Treatment Upcoming Encounters Date Type Department Care Team ( st Contact Info) Description 06/12/2023 8:40 AM EST Office Visit [facility] [address] [facility] [place] [address] Tangela Agrawal MD [address] [place] [facility] [place] [facility] [place] [address] 11/06/2023 2:40 PM EDT Office Visit [facility] [address] [facility] [address] Tangela Agrawal MD [address] [facility] [place] [address] Scheduled Procedures Name Priority Associated Diagnoses Date/Ti me COLONOSCOPY FLEXIBLE PROXIMA L DIAGNOSTIC Recall History of colonic polyps Health Maintenance Due Date Last Done Comments COVID-19 Vaccine (#1) 1961 Diabetic Foot Exam 1979 Zoster Vaccines (1 of 2) 2011 Hepatitis B (1 of 3 - Risk 3-dose series) 2021 Diabetic Eye Exam 06/03/2022 06/03/2021 Depression Screening 09/13/2023 09/12/2022 HbA1c 10/31/2023 05/01/2023, 0509/2022, 05/30/2022, Additional history exists Albumin/Creatinine Ratio 05/01/2024 [...] Diagnoses Diagnosis B12 deficiency Other B-complex deficiencies Hyperlipidemia with target LDL less than 100 Other and unspecified hyperlipidemia HTN, goal below 140/90 Unspecified essential hypertension documented in this encounter Care Teams Steeler Relationship Specialty Start Date End Date Tangela Agrawal MD [address] [place], [place] [id number] PCP - General 06/09/02 documented as of this encounter
--- OUTSIDE RECORDS SUMMARY | 2023-11-11 10:34 | External Medical Summary | Summary of Care ---
Author Name Unknown Organization [facility] Address [address] [place] [address] Phone [phone] Care Team Providers Care Gas Tender Name Role Phone Jerad Agrawal MD Primary Care Provider Reason for Visit * Reason Comments Procedure * Evaluate & Treat - Unlimited Visits (Within 30 days (routine)) - Pending Review Specialty Diagnoses / Procedures Referred By Yolanda rodas Referred To Contact Ophthalmology Diagnoses Skin tag Jerad Agrawal MD [address] [place] [address] Josr Ramachandran DO [address] [facility] [address] Referral ID Status Reason Start Date Expiration Date Visits Requested Visits Authorized [id number] Pending Review Specialty Services Required [phone] Encounter Details Date Type Department Care Team (Late st Contact Info) Description 05/18/2023 8:00 AM EST Office Visit Ophthalmology, [facility] [address] [place] [address] Josr Ramachandran DO [address] [place] [address] Papilloma of skin of right [...] Start Date End Date Status lidocaine-epinephrine 2 %-1:213405 inj 100 mgIndications:Papilloma of skin of right [...] Next Due Pneumococcal Conjugate Vacci ne, 20-valent ([id number]) 05/01/2023 Pneumococcal Polysaccharide PPV23 (Pneumovax) 09/06/2021 Seasonal [...] Description 06/12/2023 8:40 AM EST Office Visit [place] [address] [place] [address] Jerad Agrawal MD [address] [place] [address] 11/06/2023 2:40 PM EDT Office Visit [facility] [address] [place] [address] Jerad Agrawal MD [address] [place] [address] Scheduled Procedures Name Priority Associated [...] 8:18 AM EST 1 g lidocaine-epinephrine 2 %-1:190791 inj 100 mg 100 mg (5 mL), Subcutaneous, ONCE, On Thu05/18/23 at 0845, For 1 dose Given 05/18/2023 8:14 AM EST 100 mg Eye R ight documented in this encounter Care Teams Gas Tender Relationship Specialty Start Date End Date Jerad Agrawal MD [address] [place] [address] PCP - General 06/09/02 documented as of this encounter
--- OUTSIDE RECORDS SUMMARY | 2023-11-11 10:34 | External Medical Summary | Summary of Care ---
Author Name Unknown Organization [facility] Address [address] [facility] [place] [address] Phone [phone] Care Team Providers Care Anesthesiology Medical Doctor Name Role Phone Jerad Agrawal MD Primary Care Provider Reason for Visit * Reason Comments Procedure Skin tag removal Encounter Details Date Type Department Care Team (Late st Contact Info) Description 06/12/2023 8:40 AM EST Office Visit [facility] [address] [place] [address] Jerad Agrawal MD [address] [place] [address] Type 2 diabetes mellitus with diabetic polyneuropathy, without long-term current use of insulin ([facility])*; Type 2 diabetes mellitus with hemoglobin A1c goal of less than 7.0% ([facility]); Inflamed seborrheic keratosis Allergies No known active allergiesdocumented as of this encounter (statuses as of 06/12/2023) Medications Medication Sig Dispensed Refills Start Date End Date Status ASPIRIN EC 81 MG PO TBEC Take one pill daily 100 Tab 3 11/25/2011 Active VITAMIN D3 2000 UNITS PO CAPS Take 1 capsule daily. 90 Cap 1 02/10/2014 Active amLODIPine Besylate 2.5 MG Oral Tablet (Norvasc)Indicatio ns:HTN, goal below 140/90 Take 1 Tablet by mouth in the morning. 90 Tablet 3 09/12/2022 Active Allopurinol 300 MG Oral Tablet (Zyloprim)Indicati ons:Gouty arthropathy TAKE ONE TABLET BY MOUTH IN THE MORNING 90 Tablet 2 10/12/2022 Active Meclizine HCl 25 MG Oral Tablet (Antivert) Take 0.5-1 Tablets by mouth 3 times a day as needed for Dizziness. 30 Tablet 1 05/01/2023 Active Metoprolol Succinate ER 50 MG Oral Tablet Extended Release 24 Hour (toPROL XL)Indications:HTN , goal below 140/90 TAKE 1 TABLET BY MOUTH ONCE DAILY 90 Tablet 3 05/14/2023 Active Vitamin B-12 1000 MCG Oral Tablet (Cyanocobalamin)In dications:B12 deficiency TAKE 1 TABLET BY MOUTH ONCE DAILY 90 Tablet 0 05/29/2023 Active Atorvastatin Calcium 20 MG Oral Tablet (Lipitor)Indicatio ns:Hyperlipidemia with target LDL less than 100 TAKE 1 TABLET BY MOUTH EVERY EVENING 90 Tablet 0 05/29/2023 Active Lisinopril-hydroCH LOROthiazide 20-25 MG Oral TabletIndications: HTN, goal below 140/90 TAKE 1 TABLET BY MOUTH ONCE DAILY 90 Tablet 0 05/29/2023 Active metFORMIN HCl ER 500 MG Oral Tablet Extended Release 24 Hour (Glucophage XR)Indications:Typ e 2 diabetes mellitus with hemoglobin A1c goal of less than 7.0% (HCC) TAKE TWO TABLETS BY MOUTH DAILY WITH A MEAL 180 Tablet 3 06/12/2023 Active metFORMIN HCl ER 500 MG Oral Tablet Extended Release 24 Hour (Glucophage XR)Indications:Typ e 2 diabetes mellitus with hemoglobin A1c goal of less than 7.0% (HCC) TAKE FOUR TABLETS BY MOUTH DAILY WITH A MEAL 360 Tablet 3 06/10/2023 06/12/2023 Discontinued (Refill) documented as of this encounter (statuses as of 06/12/2023) Active Problems Problem Noted Date Diagnosed Date 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 09/06/2021 Type 2 diabetes mellitus wit h hemoglobin A1c goal of less than 7.0% 07/06/2020 B12 deficiency 06/08/2020 Numbness and tingling in left hand 02/06/2017 Patellofemoral pain syndrome 02/11/2012 HTN, goal below 140/90 06/25/2010 Dyslipidemia, goal LDL below 100 documented as of this encounter (statuses as of 06/12/2023) Resolved Problems Problem Noted Date Diagnosed Date [...] as of this encounter (statuses as of 06/12/2023) Immunizations Name Administration Dates Next Due Pneumococcal Conjugate Vacci ne, 20-valent ([id number]) 05/01/2023 Pneumococcal Polysaccharide PPV23 (Pneumovax) 09/06/2021 Seasonal [...] Never Smokeless Tobacco: Former Snuff Quit: 11/09/2003 Tobacco Cessation:Counseling Given: Not Answered Comments:1 can per day/ quit as of [...] Sign Reading Time Taken Comments Blood Pressure 122/78 06/12/2023 8:42 AM EST Pulse 57 06/12/2023 8:42 AM EST Temperature 36 C (96.8 F) 06/12/2023 8:42 AM EST Respiratory Rate 16 06/12/2023 8:42 AM EST Oxygen Saturation 97% 06/12/2023 8:42 AM EST Inhaled Oxygen Concentration - - Weight 112.4 kg (247 lb 12.8 oz) 06/12/2023 8:42 AM EST Height 177.8 cm (5' 10") 06/12/2023 8:42 AM EST Body Mass Index 35.56 06/12/2023 8:42 AM EST documented in this encounter Progress Notes * Jerad Agrawal MD - 06/12/2023 8:53 AM EST Subjective: Bg Gonsalves is a 63 year old male. Chief Complaint Patient presents with Procedure Skin tag removal HPI: 63-year-old here for cryo freeze of several skin lesions crossed his torso Patient Active Problem List Diagnosis Code HTN, goal below 140/90 I10 Dyslipidemia, goal LDL below 100 E78.5 Patellofemoral pain syndrome M22.2X9 Numbness and tingling in left hand R20.0, R20.2 B12 deficiency E53.8 Type 2 diabetes mellitus with hemoglobin A1c goal of less than 7.0% (HCC) E11.9 Type 2 diabetes mellitus with diabetic polyneuropathy (HCC) E11.42 Current Outpatient Medications Medication Sig Dispense Refill ASPIRIN EC 81 MG PO TBEC Take one pill daily 100 Tab 3 VITAMIN D3 2000 UNITS PO CAPS Take 1 capsule daily. 90 Cap 1 amLODIPine Besylate 2.5 MG Oral Tablet (Norvasc) Take 1 Tablet by mouth in the morning. 90 Tablet 3 Allopurinol 300 MG Oral Tablet (Zyloprim) TAKE ONE TABLET BY MOUTH IN THE MORNING 90 Tablet 2 Meclizine HCl 25 [...] DAILY WITH A MEAL 180 Tablet 3 No current facility-administered medications for this visit. Review of patient's allergies indicates: No Known Allergies Objective: BP 122/78 | Pulse 57 | Temp 36 C (96.8 F) (Temporal Artery) | Resp 16 | Ht 1.778 m (5' 10") | Wt 112.4 kg (247 lb 12.8 oz) | SpO2 97% | BMI 35.56 kg/m | BSA 2.36 m Physical Exam: CONST: alert, pleasant, no acute distress SKIN: He has what appeared to be multiple seborrheic keratotic lesions in the upper chest and back. ASSESSMENT/PLAN: Type 2 diabetes mellitus with diabetic polyneuropathy, without long-term current use of insulin ([facility]) (Primary) Type 2 diabetes mellitus with hemoglobin A1c goal of less than 7.0% ([facility]) - metFORMIN HCl ER 500 MG Oral Tablet Extended Release 24 Hour (Glucophage XR); TAKE TWO TABLETS BYMOUTH DAILY WITH A MEAL Seborrheic keratoses-a total of 6 skin lesions were treated with cryo freeze x2. These were all in the mid upper chest or left upper back. Wound instructions given. Jerad Agrawal MD documented in this encounter Nursing Notes * Mita Christie CCMA - 06/12/2023 8:42 AM EST Bg Gonsalves is a 63 year old male who presents today for Chief Complaint Patient presents with Procedure Skin tag removal documented in this encounter Plan of Treatment Upcoming Encounters Date Type Department Care Team (Late st Contact Info) Description 11/06/2023 2:40 PM EDT Office Visit [facility] [address] [place] [address] Jerad Agrawal MD [address], [place] [id number] Scheduled Orders Name Type Priority Associated Diagnoses Orde r Schedule BENIGN LESION DESTRUCTION, UP TO 14 LESIONS Procedures Routine Inflamed seborrheic keratosis Ordered: 06/12/2023 Scheduled Procedures Name Priority Associated Diagnoses Date/Ti [...] long-term current use of insulin (HCC)- Primary Type 2 diabetes mellitus with hemoglobin A1c goal of less than 7.0% (HCC) Inflamed seborrheic keratosis documented in this encounter Care Teams Anesthesiology Medical Doctor Relationship Specialty Start Date End Date Jerad Agrawal MD [address] [place] [address] PCP - General 06/09/02 documented as of this encounter
[2023-11-11] MEDS: LANTUS PER UNIT CHARGE SQ SCH (10:35)
--- NOTE | 2023-11-11 10:44 | Pharmacy Report ---
Pharmacy PK ABX Note - Date of Service November 11, 2023 - Assessment and Plan Assessment 63 year old M receiving VANCOMYCIN IV for treatment of L olecranon cellulitis with lack of response to out-pt doxycycline. No micro has been ordered for this visit. Day # 2 of antimicrobial therapy. Plan Vancomycin * Loading dose: 2250 mg IV x 1 given yesterday * Maintenance dose: 1500 mg IV every 12 hours * Regimen is predicted to achieve target AUC/MORRO of 400-600 mg/L.hr * Random level ordered for: 7/4 AM (prior to 3rd maint dose) Pharmacy will continue to follow and will adjust dose/frequency as necessary. Thank you. Pharmacy has transitioned to AUC monitoring for vancomycin. AUC/MORRO is the preferred PK/PD target and is associated with decreased risk of nephrotoxicity compared to traditional trough targets.
[2023-11-11] MEDS: metFORMIN HCL ER 500 MG TABCR PO SCH (12:00)
[2023-11-11] MEDS: INSULIN ASPART PER UNIT CHARGE SC SCH (12:00)
[2023-11-11] MEDS ORDERED: IBUPROFEN 200 MG TAB PO PRN (15:40)
[2023-11-11] MEDS: rOPINIRole HCL 0.25 MG TABLET PO SCH (20:24)
[2023-11-11] MEDS: ATORVASTATIN 20 MG TAB PO SCH (20:24)
[2023-11-12 08:03] LABS: Hematocrit (blood only) 40.7 % (42.0-52.0); Hemoglobin 14.3 g/dl (14.0-18.0); Mean Corpuscular Hemoglobin 30.9 pg (25.0-34.0); Mean Corpuscular Hgb Conc 35.1 g/dL (32.0-36.0); Mean Corpuscular Volume 87.9 fL (80.0-100.0); Mean Platelet Volume 8.5 fL (9.4-12.4); Platelet Count 242 K/uL (130-400); RDW Coefficient of Variation 11.9 % (11.5-14.5); RDW Standard Deviation 38.2 fL (36.4-46.3); Red Blood Count 4.63 M/uL (4.70-6.10); White Blood Count 6.08 K/ul (4.8-10.8)
[2023-11-12 08:29] LABS: BUN Creatinine Ratio 16.9 (10-20); Calcium 9.4 mg/dl (8.6-10.3); Creatinine Clr Calc Pharmacy 147.5 ml/min; Est GFR (African American) 120.8 ml/min; Est GFR (Non-African American) 104.3 ml/min; Magnesium 1.9 mg/dl (1.7-2.4); Phosphorus 4.2 mg/dl (2.5-4.9); Potassium 3.8 mmol/L (3.5-5.1)
--- NOTE | 2023-11-12 08:40 | Pharmacy Report ---
Pharmacy PK ABX Note - Date of Service November 12, 2023 - Assessment and Plan Assessment 63 year old M receiving VANCOMYCIN IV for treatment of L olecranon cellulitis with lack of response to out-pt doxycycline. No micro has been ordered for this visit. Day # 3 of antimicrobial therapy. Plan Vancomycin * Maintenance dose: 1500 mg IV every 12 hours * Regimen is predicted to achieve target AUC/MORRO of 400-600 mg/L.hr, although is on the lower end at 400 mg/L.hr * Will repeat random level tomorrow to ensure vanco remains therapeutic * Random level ordered for: 7/5 AM Pharmacy will continue to follow and will adjust dose/frequency as necessary. Thank you. Pharmacy has transitioned to AUC monitoring for vancomycin. AUC/MORRO is the preferred PK/PD target and is associated with decreased risk of nephrotoxicity compared to traditional trough targets.
--- NOTE | 2023-11-12 11:10 | Discharge Summary ---
Date of Service November 12, 2023 Admission HPI Per Admitting Provider This is a 63 yo M with PMHx of HTN, DM type II, restless leg, who fell on October 24 down on his left arm and reports that it jammed up his shoulder. He has an abrasion over the ulnar aspect of the elbow which she has been seen by his PCP for earlier today. Redness and tenderness over the elbow started 2 days ago, earlier this morning at PCP office denied any acute fever. He was started on doxycycline 100 mg twice daily and told that if he noticed worsening erythema/fever he was to present to the ER. Patient states that he was outside working earlier this morning using a [employer], that he is right-handed, for abo ut a 2-hour timeframe and that he noticed his left forearm became increasingly swollen with more inner erythema. He has been taking doxycycline p.o. since last Thursday whenever PCP prescribed it. Notes that he has not quite felt himself, diminished appetite, states that he is somewhat nauseous after taking doxycycline. Denies any fevers, chills or sweats. He did take Aleve 2 days ago for generalized aches and pains. Patient is taking all other home medication without any difficulty. Patient denies any tick bites. He has been able to walk without any difficulty. Admission Exam Per Admitting Provider General: awake, alert, no apparent distress, white, male Head: Normocephalic, atraumatic ENT: PERRL, EOMI, no pharyngeal exudate, mucous membranes moist Chest: Clear to auscultation, on room air, no adventitious breath sounds Cardiac: Regular rate and rhythm, no murmur, no JVD, normal peripheral pulses, good capillary refill Abdominal: NABS x 4 quadrants, soft, nondistended, nontender to palpation, no rebound or guarding Extremities: Left elbow with scabbed over area, surrounding erythema is dull, difficult to see with tattoos, +warmth to touch slightly, no obvious significant edema in forearm, otherwise Normal inspection, no peripheral edema or erythema, calfs nontender to palpation Psych: Normal mood and affect Neuro: AAO x 3, strength intact bilaterally and rated 5/5, no motor deficits, speech is clear, no peripheral sensory deficits Principal Diagnosis left olecranon cellulitis Discharge Exam General: awake, alert, no apparent distress, On room air, NAD Head: Normocephalic, atraumatic ENT: PERRL, EOMI, no pharyngeal exudate, mucous membranes moist Chest: Clear to auscultation, on room air, no adventitious breath sounds Cardiac: Regular rate and rhythm, no murmur, no JVD, normal peripheral pulses, good capillary refill Abdominal: NABS x 4 quadrants, soft, nondistended, nontender to palpation, no rebound or guarding Extremities: Left elbow with minimal swelling, no erythema, minimal tenderness, warm to touch. ROM not painful/full. Psych: Normal mood and affect Neuro: AAO x 3, strength intact bilaterally and rated 5/5, no motor deficits, speech is clear, no peripheral sensory deficits Discharge Data Allergies Allergy/AdvReac Type Severity Reaction Status Date / Time No Known Allergies Allergy Mild Verified 11/10/23 17:08 Consultations 11/10/23 16:04 ED Decision to Admit Stat Hospital Course (1) Cellulitis of left arm: (2) DM II (diabetes mellitus, type II), controlled: (3) Hypertension: (4) HLD (hyperlipidemia): Left olecranon Cellulitis - Pt reports worsening erythema and edema At left elbow despite antibiotic therapy of doxycycline x 4 days, failure of outpt abx - No WBC, afebrile, Left humerus x-ray with no fracture, indicative of soft tissue swelling at left elbow. - IV vancomycin while inpatient, to PO bactrim on DC. discussed side effect profile w/ the patient, he is agreeable. - erythema, warmth, tenderness improving, has full and painless rom at left elbow. Hypokalemia: Monitor replete HTN HLD - Continue home meds, chronic, stable - amlodipine 2.5 mg daily, atorvastatin 20 mg QPM, lisinopril/HCTZ 20-25 mg daily, metoprolol 50 mg daily DM II - Will hold metformin and use insulin sliding scale while admitted - Last A1C of 6.3 on 10/29/23 - Diet and exercise to be encouraged throughout hospital stay DVT ppx: ambulatory CODE: Full code Dispo: From home, likely DC tomorrow Patient is being discharged with following instruction at the point of discharge: Follow-up with your primary care physician within a week time and likely you will need labs CBC/CMP/magnesium/phosphorus. As discussed at the bedside, you will be discharged on Bactrim to complete the course for your left arm cellulitis. As discussed, it can increase the risks of a skin reaction/kidney injury/confusion as a part of side effect profile along with nausea, vomiting. If side effects are severe, stop the antibiotic and contact your primary care office or emergency immediately. Continue to take probiotic for the duration of antibiotic. Maintain adequate hydration [about 3 L of fluid intake a day], maintain healthy range of motion/activity level of left upper extremity. Do not do heavy lifting or tasks that involve repetitive motions at left elbow. Take your medications as prescribed. Please make sure that you are able to get your medications today by calling your pharmacy before you leave the hospital so that your treatment continuity is not broken. Home Health Attestation I certify that this patient is under my care and that I, or a physicians perioperative assistant working with me, had a face to-face encounter that meets the home health mdpe-er-bsan encounter requirements with this patient. The encounter with the patient was in whole, or in part, for the following medical condition, which is the primary reason for home health care (list medical condition): I certify that, based on my findings, the following services are medically necessary home health services: My clinical findings support the need for the above services because: Further, I certify that my clinical findings support that this patient is homebound (i.e. absences from home require considerable and taxing effort and are for medical reasons or [facility] or infrequently or of short duration when for other reasons) because: Certification for Home Health Services: Based on the above findings, I certify that this patient is confined to the home and needs intermittent group home care, physical therapy and/or speech therapy or continues to need occupational therapy. The patient is under my care, and I have initiated the establishment of the plan of care. This patient will be followed by a physician who will periodically review the plan of care. Total Time Total Time Spent Total Time Spent (In Minutes): 45 Discharge Plan Discharge Items Patient Disposition: Home - Self-Care Reason For Visit: CELLULITIS, HYPOKALEMIA Discharge Diagnosis: left olecranon cellulitis Activity: Resume your previous activity Non-emergency contact: Primary Care Provider Call non-emergency contact if: you have any medication questions Follow-up/Referrals: Jerad Agrawal MD [Primary Care Provider] - (Date & Time 11/19/2023 9:40 AM Provider Jerad Agrawal MD Department [facility] ) Diet: Carb Consistent or DM2 and Heart Healthy Addtl Attending Provider Instructions: Follow-up with your primary care physician within a week time and likely you will need labs CBC/CMP/magnesium/phosphorus. As discussed at the bedside, you will be discharged on Bactrim to complete the course for your left arm cellulitis. As discussed, it can increase the risks of a skin reaction/kidney injury/confusion as a part of side effect profile along with nausea, vomiting. If side effects are severe, stop the antibiotic and contact your primary care office or emergency immediately. Continue to take probiotic for the duration of antibiotic. Maintain adequate hydration [about 3 L of fluid intake a day], maintain healthy range of motion/activity level of left upper extremity. Do not do heavy lifting or tasks that involve repetitive motions at left elbow. Take your medications as prescribed. Please make sure that you are able to get your medications today by calling your pharmacy before you leave the hospital so that your treatment continuity is not broken. Pending Studies at Discharge: No Stand-Alone Forms: My [facility] [employer], Smoking Cessation Medications and DC Order Prescriptions: New ibuprofen 200 mg Tablet 200 mg PO Q6H PRN (Reason: moderate to severe pain) 5 Days Qty: 20 0RF Rx Instructions: Take as needed every 6 hours w/ food sulfamethoxazole-trimethoprim [Bactrim DS] 800-160 mg tablet 1 tab PO BID 8 Days Qty: 16 0RF Probiotic 3 billion cell capsule 3,000 mmu cells PO DAILY 14 Days Qty: 14 0RF Rx Instructions: administer with a meal Continued atorvastatin 20 mg tablet 20 mg PO QPM metoprolol succinate 50 mg tablet extended release 24 hr 50 mg PO QAM cyanocobalamin (vitamin B-12) [Vitamin B-12] 1,000 mcg Tablet 1,000 mcg PO DAILY amlodipine 2.5 mg tablet 2.5 mg PO QAM aspirin [Aspir-Low] 81 mg Tablet,Delayed Release (Dr/Ec) 81 mg PO DAILY meclizine 25 mg tablet 25 mg PO TID PRN (Reason: .dizzyness) ropinirole 0.5 mg tablet 1.5 mg PO HS lisinopril-hydrochlorothiazide 20-25 mg tablet 1 tab PO QAM allopurinol 300 mg tablet 300 mg PO QAM metformin 500 mg tablet extended release 24 hr 1,000 mg PO DAILY cholecalciferol (vitamin D3) [Vitamin D3] 50 mcg (2,000 unit) Tablet 50 mcg PO DAILY Discontinued doxycycline hyclate 100 mg capsule 100 mg PO BID Discharge Orders: Discharge Order (Routine); Ordered 11/12/23 Ordered By: Ann Westfall/Other Patient Handouts: Managing Type 2 Diabetes, Healthy Meals for Diabetes, Exercise to Manage Your Blood Sugar Admission Data Admit Date/Time: 11/10/23 17:05 Attending Provider: Ann Hirsch Admit Provider: Jason Hawthorne Primary Care Provider: Jerad Agrawal Other Providers: Jason Hawthorne
[2023-11-13] MEDS ORDERED: VANCOMYCIN LEVEL ONE (07:30)
== END 2023-11-12 12:50 | disposition home or self-care (01) | DRG 603 ==
LOC: ED 14:51 → SUATTDRO 17:05 → INTOOBSV 17:05 → 3W 17:05

== ENCOUNTER 2024-07-19 06:24 | Observation (INO) ==
--- NOTE | 2024-06-21 12:58 | PAT Medication Instructions ---
Medication Instructions Date of Service June 21, 2024 Home Medications Medication Instructions Recorded Crys Bonilla #1 ea 05/06/24 allopurinol 300 mg tablet 300 mg PO QAM amlodipine 2.5 mg tablet 2.5 mg PO QAM aspirin 81 mg tablet,delayed release 81 mg PO QAM atorvastatin 20 mg tablet 20 mg PO QPM cholecalciferol (vitamin D3) 50 mcg (2,000 unit) tablet (Vitamin D3) 50 mcg PO QAM cyanocobalamin (vitamin B-12) 1,000 mcg tablet (Vitamin B-12) 1,000 mcg PO QAM lisinopril 20 mg-hydrochlorothiazide 25 mg tablet 1 tab PO QAM meclizine 25 mg tablet 25 mg PO TID PRN .dizziness metformin 500 mg tablet,extended release 24 hr 1,000 mg PO QAM metoprolol succinate 50 mg tablet,extended release 24 hr 50 mg PO QAM ropinirole 0.5 mg tablet 2 mg PO HS MEDICATION INSTRUCTIONS: ASK your prescriber and surgeon aspirin 81 mg tablet,delayed release 81 mg PO QAM DO NOT take the morning of surgery metformin 500 mg tablet,extended release 24 hr 1,000 mg PO QAM cholecalciferol (vitamin D3) 50 mcg (2,000 unit) tablet (Vitamin D3) 50 mcg PO QAM cyanocobalamin (vitamin B-12) 1,000 mcg tablet (Vitamin B-12) 1,000 mcg PO QAM lisinopril 20 mg-hydrochlorothiazide 25 mg tablet 1 tab PO QAM Take morning of surgery With a small sip of water, OTHERWISE NOTHING TO EAT OR DRINK AFTER MIDNIGHT: metoprolol succinate 50 mg tablet,extended release 24 hr 50 mg PO QAM allopurinol 300 mg tablet 300 mg PO QAM amlodipine 2.5 mg tablet 2.5 mg PO QAM meclizine 25 mg tablet 25 mg PO TID PRN .dizziness Take evening before surgery ropinirole 0.5 mg tablet 2 mg PO HS atorvastatin 20 mg tablet 20 mg PO QPM meclizine 25 mg tablet 25 mg PO TID PRN .dizziness Other Notes If you have any questions please call us at [phone] or [phone] or [phone] or [phone]
--- NOTE | 2024-06-29 11:44 | Anesthesiology Consultation ---
Date of Service June 29, 2024 Assessment & Plan (1) Encounter for pre-operative examination: - Check BSG DOS - Infectious disease screening: Per assessment on 06/21/24- tested Covid positive 2+ weeks ago- her symptoms have resolved and patient did not develop symptoms. Patient remains asymptomatic. He was advised to call surgeon/PAT if development of symptoms prior to surgery. - Outpatient joint assessment: Pt currently scheduled for inpatient pathway. If surgeon requests review for outpatient joint pathway, patient is an acceptable candidate for outpatient joint program from anesthesia standpoint pending surgeon's office assessment that patient is motivated, has good support and completes Same Day Joint Program preop requirements. - Preop CXR: Preop CXR noted Mild pneumonitis changes noted in right lower lung zone. Note written to PCP regarding preop CXR- Awaiting response (Dr. Agrawal/[facility]). Patient otherwise acceptable risk for surgery. Chart Review Chart Review: Patient seen in Pre Admission Testing Teaching & Discussion Pre-Anesthesia Teaching/Discussion Notes: Instructed NPO after midnight before surgery,except medications with 15 cc of water. Medication instructions provided according to the PAT guidelines. History Surgery Operation Date: 07/19/24 08:50 Proposed Procedures p Left Total Hip Arthroplasty - Bravo De La Torre MD Height/Weight Height: 5 ft 11 in Weight: 107.9 kg Allergies Allergy/AdvReac Type Severity Reaction Status Date / Time No Known Allergies Allergy Mild Verified 06/21/24 09:51 Medications Home Medications Medication Instructions Recorded Confirmed Last Taken allopurinol 300 mg tablet 300 mg PO QAM 11/10/23 06/21/24 11/10/23 09:00 amlodipine 2.5 mg tablet 2.5 mg PO QAM 11/10/23 06/21/24 11/10/23 09:00 aspirin 81 mg tablet,delayed 81 mg PO QAM 11/10/23 06/21/24 11/10/23 09:00 release atorvastatin 20 mg tablet 20 mg PO QPM 11/10/23 06/21/24 Unknown cholecalciferol (vitamin D3) 50 50 mcg PO QAM 11/10/23 06/21/24 Unknown mcg (2,000 unit) tablet (Vitamin D3) cyanocobalamin (vitamin B-12) 1,000 mcg PO QAM 11/10/23 06/21/24 Unknown 1,000 mcg tablet (Vitamin B-12) lisinopril 20 1 tab PO QAM 11/10/23 06/21/24 11/10/23 08:00 mg-hydrochlorothiazide 25 mg tablet meclizine 25 mg tablet 25 mg PO TID PRN .dizzyness 11/10/23 06/21/24 Unknown metformin 500 mg tablet,extended 1,000 mg PO QAM 11/10/23 06/21/24 11/10/23 release 24 hr metoprolol succinate 50 mg 50 mg PO QAM 11/10/23 06/21/24 11/10/23 09:00 tablet,extended release 24 hr ropinirole 0.5 mg tablet 2 mg PO HS 11/10/23 06/21/24 Unknown Wheeled Walker #1 ea 05/06/24 05/06/24 Unknown Past Medical History Medical History Arthritis of right hip Cataracts, bilateral Does not meet surgical criteria presently per patient DM II (diabetes mellitus, type II), controlled HLD (hyperlipidemia) Hypertension Exercise / Class Metabolic Activity II 4-5 Yardwork/Stairs/Walk up hill (one FS: No CP, no SOB) Past Family History Family History Mother Diabetes Father Cancer Past Surgical History Surgical History Benign neoplasm of shoulder Left- removal (2015) History of tooth extraction Hx of colonoscopy Hx of lipoma Removed (back) S/P left rotator cuff repair Status post right hip replacement Past Anesthesia History No Hx of Anesthesia Complications and No Family Hx of Anesthesia Complications History of PONV No Hx of PONV and No Hx of Motion Sickness Social History Smoking Status: Never smoker Do You Dip or Chew Tobacco: No (Quit 20 yrs ago) Hx Alcohol Use: Yes Alcohol type: beer alcohol intake frequency: 3 or more drinks per day (3-4 per day evening/supper time) Hx Substance Use: No substance use type: does not use Review of Systems Patient denies chest pain, shortness of breath, dyspnea on exertion, fever, chills, cough, wheezing, palpitations. Physical Exam Vital Signs BP 106/67 P 58 TEMP 98.3 SP02 96%RA RESP 16 Physical Full cervical extension range of motion. Full TMJ range of motion. TMD > 3.5 finger breaths Mallampati Score II Dentition: several missing teeth (molars) Lungs: clear throughout to auscultation Cardiac: regular rate and rhythm (with occasional extra beat), no murmurs noted Spine: normal Carotid arteries: negative bruit Extremities: no LE edema Lab Results Anesthesia Preop Results Results Anesthesia Widget: WBC 8.85 K/ul (4.8-10.8) 06/29/24 Hgb 14.9 g/dl (14.0-18.0) 06/29/24 Hct 42.2 % (42.0-52.0) 06/29/24 Plt 224 K/uL (130-400) 06/29/24 Na 137 mmol/L (136-145) 06/29/24 K 3.5 mmol/L (3.5-5.1) 06/29/24 Cl 101 mmol/L (98-107) 06/29/24 CO2 30 mmol/L (21-32) 06/29/24 BUN 16 mg/dl (6-23) 06/29/24 Creat 0.89 mg/dl (0.6-1.4) 06/29/24 Glucose Level 79 mg/dl (70-99(Fasting)) 06/29/24 PT 10.1 Seconds (9.0-12.0) 06/29/24 PTT 24 Seconds (21-31) 06/29/24 INR 0.9 (0.9-1.1) 06/29/24 HA1c 6.3 % (4.5-5.6) H 06/29/24 Blood Type O Positive 06/29/24 Antibody Screen NEGATIVE 06/29/24 Testing Electrocardiogram Date: 06/29/24 SR with PACs at 60bpm. LAFB. Chest X-Ray Date: 06/29/24 OBSERVATION: Right diaphragmatic hump is noted. Aortic knuckle calcification is noted. Mild pneumonitis changes noted in right lower lung zone. The lungs on the either side show equal translucency. The peripheral pulmonary vasculature is normal. No focal lung lesion is seen. Bilateral CP angles are normal. Both cuate are normal in size, have equal density and bear normal relationship. The heart and trachea are central in position and no mediastinal abnormality is visible. The cardiac size is normal. The domes of the diaphragms are normal in position,and show smooth outline. IMPRESSION: Mild pneumonitis changes noted in right lower lung zone.
--- NOTE | 2024-07-14 12:44 | History & Physical Report ---
Date of Service July 14, 2024 Assessment & Plan (1) Arthritis of left hip: 64-year-old gentleman status post a right total hip replacement done [address] Jamie serrano with progressing left hip pain this and discomfort consistent with progressive hip arthritis. He is markedly debilitated by his disease. Clinically he seems to be doing worse than his radiographs would suggest. His knees are manageable with the injections. Plan: We talked about treatment and he like to have his hip replaced. Will take him to the operating room and do a left total hip placement. The risk and benefit this procedure were explained and he understands. Informed consent was obtained. He will need further conservative management of his knees in the foreseeable future. Right cemented total hip were explained and he understands. Informed consent was obtained. He is planned to be discharged to home using the energy therapy [facility]. (2) Bilateral primary osteoarthritis of knee: (3) HLD (hyperlipidemia): (4) DM II (diabetes mellitus, type II), controlled: (5) Hypertension: History of Present Illness Chief Complaint: . Left hip and leg pain. Primary Care Provider: Jerad Agrawal MD . The patient is a 64-year-old fairly active gentleman who presents for treatment of his left hip primarily at this point. He has a long history of hip pain and discomfort as well as knee pain discomfort describes gotten worse over time. The hip seems to bother him more than the knees. He had an injection of the bursa which did not help much at all. We did put shots in his knees which seem to help them more. He feels like that this pain similar to the pain he had before he had his right hip replaced with Dr. Jamie serrano 8 years ago. He now presents for surgical treatment of his left hip. Pains become more debilitating. It is affecting his ability to maintain an active lifestyle. Allergies Allergy/AdvReac Type Severity Reaction Status Date / Time No Known Allergies Allergy Mild Verified 06/21/24 09:51 Home Medications Medication Instructions Recorded Confirmed Type allopurinol 300 mg tablet 300 mg PO QAM 11/10/23 06/21/24 History amlodipine 2.5 mg tablet 2.5 mg PO QAM 11/10/23 06/21/24 History aspirin 81 mg tablet,delayed 81 mg PO QAM 11/10/23 06/21/24 History release atorvastatin 20 mg tablet 20 mg PO QPM 11/10/23 06/21/24 History cholecalciferol (vitamin D3) 50 50 mcg PO QAM 11/10/23 06/21/24 History mcg (2,000 unit) tablet (Vitamin D3) cyanocobalamin (vitamin B-12) 1,000 mcg PO QAM 11/10/23 06/21/24 History 1,000 mcg tablet (Vitamin B-12) lisinopril 20 1 tab PO QAM 11/10/23 06/21/24 History mg-hydrochlorothiazide 25 mg tablet meclizine 25 mg tablet 25 mg PO TID PRN .dizzyness 11/10/23 06/21/24 History metformin 500 mg tablet,extended 1,000 mg PO QAM 11/10/23 06/21/24 History release 24 hr metoprolol succinate 50 mg 50 mg PO QAM 11/10/23 06/21/24 History tablet,extended release 24 hr ropinirole 0.5 mg tablet 2 mg PO HS 11/10/23 06/21/24 History Wheeled Walker #1 ea 05/06/24 05/06/24 Rx Past Med/Surg History Problem List Encounter for pre-operative examination Bilateral primary osteoarthritis of knee Arthritis of left hip Medical History Cataracts, bilateral Does not meet surgical criteria presently per patient HLD (hyperlipidemia) DM II (diabetes mellitus, type II), controlled Hypertension Arthritis of right hip Surgical History Hx of lipoma Removed (back) History of tooth extraction Status post right hip replacement S/P left rotator cuff repair Benign neoplasm of shoulder Left- removal (2016) Hx of colonoscopy Family History Mother Diabetes Father Cancer Social History Smoking Status: Never smoker Tobacco Type: Smokeless Tobacco (Dip or Chew) Age Quit Using Tobacco: 43; Second Hand Exposure: No; Do You Dip or Chew Tobacco: No (Quit 20 yrs ago); Tobacco Cessation Education Requested by Patient: No Hx Alcohol Use: Yes Alcohol type: beer Hx Substance Use: No Preferred Language: Georgian Communication Ability: Effective Shot Core Drill Operator Helper Required: No Beliefs That Will Affect Care: None Current Living Situation: Spouse Other Information That Helps Us Care for You: No Feels Safe at Home: Yes Safety Concerns: Feels Safe At This Time Assistive Devices: Glasses and Hearing Aid - Bilateral Review of Systems All systems reviewed & are unremarkable except as noted in HPI & below. Physical Exam . Physical examination reveals a pleasant healthy-appearing 64-year-old gentleman. Examination of the left hip reveal patient walks without any major limp. He does have clinically equal leg lengths on exam. He does have stiffness with hip motion. This recreates his pain. He can internally rotate to neutral but that is about it. Negative straight leg raise. He is neurologically intact. Constitutional WD/WN, vitals as above Neck trachea midline, no thyromegaly Respiratory normal respiratory effort, lungs clear to auscultation Cardiovascular RRR, no murmur, no edema Gastrointestinal (Abdomen) normal bowel sounds, soft, nontender, no hepatosplenomegaly Results & Data Results & Data Laboratory Results . Diagnostic Findings . X-rays of the left hip weightbearing were reviewed. It shows some slight narrowing of his joint space. Is got osteophytes medially and inferior medially. Bone density looks pretty good. MRI was reviewed. Shows significant hip joint effusion. Ronnie bone marrow changes of the femoral head of moderate severity. PG Care Time/CCT Total # of Minutes Spent Total Time Spent with Patient: Total time spent is greater than 50% in coordination of care (as documented) at patient's floor/unit and/or counseling patient: Coding Level of Care Code None Diagnoses Arthritis of left hip M16.12 Bilateral primary osteoarthritis of knee M17.0 HLD (hyperlipidemia) E78.5 DM II (diabetes mellitus, type II), controlled E11.9 Hypertension I10
[2024-07-19] MEDS ORDERED: BUPIVACAINE 0.5 % 5 MG/1 ML PF 10ML VIAL ONE (06:35)
--- OUTSIDE RECORDS SUMMARY | 2024-07-19 06:48 | External Medical Summary | Summary of Care ---
Author Name Unknown Organization [facility] Address [address] [address] Phone [phone] Care Team Providers Care Credit Consultant Name Role Phone Jerad Agrawal MD Primary Care Provider Reason for Visit * Reason Onset Date Comments Advice 07/05/2024 Encounter Details Date Type Department Care Team (Late st Contact Info) Description 07/05/2024 Telephone [facility] [address] [place] [address] Jerad Agrawal MD [address] [place] [address] Advice Allergies No known active allergiesdocumented as of this encounter (statuses as of 07/13/2024) Medications ASPIRIN EC 81 MG PO TBEC Take one pill daily 100 Tab 3 2 Active VITAMIN D3 2000 UNITS PO CAPS Take 1 capsule daily. 90 Cap 1 4 Active Meclizine HCl 25 MG Oral Tablet (Antivert) Take 0.5-1 Tablets by mouth 3 times a day as needed for Dizziness. 30 Tablet 1 3 Active metFORMIN HCl ER 500 MG Oral Tablet Extended Release 24 Hour (Glucophage XR)Indications:T ype 2 diabetes mellitus with hemoglobin A1c goal of less than 7.0% (HCC) TAKE TWO TABLETS BY MOUTH DAILY WITH A MEAL 180 Tablet 3 4 Active Vitamin B-12 1000 MCG Oral Tablet (Cyanocobalamin) Indications:B12 deficiency TAKE 1 TABLET BY MOUTH ONCE DAILY 90 Tablet 3 4 Active Ibuprofen 200 MG Oral Tablet (Motrin) Take 1 Tablet by mouth every 6 hours as needed. 4 Active amLODIPine Besylate 2.5 MG Oral Tablet (Norvasc)Indicat ions:HTN, goal below 140/90 TAKE 1 TABLET BY MOUTH EVERY MORNING 90 Tablet 3 4 Active rOPINIRole HCl 0.5 MG Oral Tablet (Requip)Indicati ons:Restless legs syndrome TAKE 1 TABLET BY MOUTH AT BEDTIME. AFTER 2 WEEKS MAY INCREASE TO TWO TABLETS AT BEDTIME. AFTER ANOTHER 2 WEEKS MAY INCREASE TO 3 TABLETS AT BEDTIME 90 Tablet 4 Active Metoprolol Succinate ER 50 MG Oral Tablet Extended Release 24 Hour (toPROL XL)Indications:H TN, goal below 140/90 TAKE 1 TABLET BY MOUTH ONCE DAILY 90 Tablet 3 5 Active rOPINIRole HCl 1 MG Oral Tablet (Requip)Indicati ons:Restless legs syndrome 2mg 1-3 hours before bedtime with food for restless legs 03190 Tablet 11 5 Active Lisinopril-hydro CHLOROthiazide 20-25 MG Oral TabletIndication s:HTN, goal below 140/90 TAKE 1 TABLET BY MOUTH ONCE DAILY 90 Tablet 1 5 Active Atorvastatin Calcium 20 MG Oral Tablet (Lipitor)Indicat ions:Hyperlipide carlos with target LDL less than 100 TAKE 1 TABLET BY MOUTH EVERY EVENING 90 Tablet 1 5 Active Allopurinol 300 MG Oral Tablet (Zyloprim)Indica tions:Gouty arthropathy TAKE 1 TABLET BY MOUTH EVERY MORNING 90 Tablet 1 5 Active documented as of this encounter (statuses as of 07/13/2024) Active Problems Problem Noted Date Diagnosed Date 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 09/06/2021 Type 2 diabetes mellitus wit h hemoglobin A1c goal of less than 7.0% 07/06/2020 B12 deficiency 06/08/2020 Numbness and tingling in left hand 02/06/2017 Patellofemoral pain syndrome 02/11/2012 HTN, goal below 140/90 06/25/2010 Dyslipidemia, goal LDL below 100 documented as of this encounter (statuses as of 07/13/2024) Resolved Problems Problem Noted Date Diagnosed Date Resolved Date Prediabetes 06/18/2020 06/26/2021 Overview: Per Prediabetes protocol Prediabetes 12/18/2019 01/19/2020 Vitamin D deficiency 10/24/2016 017 Bleeding internal hemorrhoids 09/19/2016 02/06/2017 Overview (09/19/2016): Resolved Skin erosion 11/09/2013 10/21/2016 Multiple pigmented nevi 11/09/201310/09 Tobin angioma 11/09/2013 02/06/2017 Obesity, Class I, BMI 30.0-3 4.9 (see actual BMI) 02/11/2012 10/21/2016 Overview (02/11/2012): bmi= 32.92 02/11/12 Left knee pain 02/11/2012 [...] as of this encounter (statuses as of 07/13/2024) Immunizations Name Administration Dates Next Due Pneumococcal Conjugate Vacci ne, 20-valent ([id number]) 05/01/2023 Pneumococcal Polysaccharide PPV23 (Pneumovax) 09/06/2021 Seasonal Influenza Vac., MDV , IM, 0.5 mL (Fluzone) 02/10/2014,04/20/2013,04/23/2012,01/26 Seasonal Influenza, PF, 6 M & above, IM , (FluLaval or Fluzone) 05/01/2023,03/14/2022,03/08/2021,02/06 Seasonal Influenza, Quadriva lent, No Preserve, IM 04/25/2016,04/24/2015 Seasonal Influenza, Trivalen t, (IIV3), PF, (Fluzone) 05/18/2024 TD - Tetanus/Diptheria (ADULT) 08/16/1991 TD, Preservative Free 10/24/2016 TDAP, Age 7 and older, IM (Adacel) 11/12/2005 Zoster Vaccine Recombinant (Shingrix) 06/01/2024 documented as of this encounter Social History [...] Assigned at Male 09/12/2022 2:34 PM EDT Legal Sex Male 5:57 AM EST Gender Identity Male 09/12/2022 2:34 PM EDT Sexual Orientation Straight 09/12/2022 2: 34 PM EDT documented as of this encounter Miscellaneous Notes * Telephone Encounter - Niurka RobertsonROYER crockett - 07/13/2024 2:54 PM EST I called and spoke with patients and she is aware of the information from . Patient is going to be overbooked on Dr. Agrawal's schedule for 07/14/2024 due to limited time frame and no appointments available. * Telephone Encounter - Jerad Agrawal MD - 07/12/2024 5:03 PM EST He needs seen. I can not clear him for surgery with abnormal CXR without at least having him see. CXR changes of pneumonitis are likely not significant but he needs seen within next couple of days. * Telephone Encounter - Shannan Marrufo LPN - 07/12/2024 2:25 PM EST X-ray report is scanned into Epic * Telephone Encounter - Rose Marie Jain OSA - 07/05/2024 11:26 AM EST Asked to send message to Dr Agrawal. Has surgery coming up, pre op chest xray showed mild pnumonitis, asking if patient needs further testing or intervention. States this chest xray is in epic. Asking for clearance for surgery, 07/19/2024. . documented in this encounter Plan of Treatment Upcoming Encounters Date Type Department Care Team (Late st Contact Info) Description 07/14/2024 9:20 AM EST Office Visit [facility] [address] [phone] Jerad Agrawal MD [address] [place] [id number] 07/15/2024 10:30 AM EST Office Visit Orthopaedics [facility] [address] [place] [phone] Ángel Santos MD [address] [place] [address] 11/18/2024 12:00 PM EDT Office Visit Family Practice, [address] [place] [address] Jerad Agrawal MD [address] [place] [address] 12/02/2024 9:30 AM EDT Nurse Only Ancillary Department, [place] [facility] [address] [place] [phone] Nurse Roberto [address] [place] [address] Scheduled Procedures Name Priority Associated Diagnoses Date/Ti me COLONOSCOPY FLEXIBLE PROXIMA L DIAGNOSTIC Recall History of colonic polyps Health Maintenance Due Date Last Done Comments Cologuard 2006 Fecal Occult Blood Test 2006 Sigmoidoscopy 2006 COVID-19 Vaccine ( season) 2024 Zoster Vaccines (2 of 2) 07/27/2024 06/01/2024 Depression Screening 11/05/2024 11/06/2023 Diabetic Foot Exam 11/05/2024 11/06/2023 HbA1c 12/27/2024 06/29/2024, 03/11, 10/29/2023, Additional history exists Albumin/Creatinine Ratio 03/21/2025 024, 05/01/2023, 05/30/2022, Additional history exists B-12 03/21/2025 03/21/2024, 04/11, 05/30/2022, Additional history exists Diabetic Eye Exam 06/29/2025 06/29/2024, , 06/03/2021 GFR 06/29/2025 06/29/2024, 03/11, 05/01/2023, Additional history exists Colonoscopy 08/01/2025 08/01/2022, 07/10, 12/12/2011, Additional history exists Colorectal Cancer Screening 08/01/2025 DTap/Tdap Vaccines (3 - Td or Tdap) 10/24/2026 10/24/2016, 11/12/2005, 08/16/1991 Lipid Panel 03/21/2029 03/21/2024, 04/11, 05/30/2022, Additional history exists Pneumococcal Vaccine: 50+ Years Completed 05/01/2023, 09/06/2021 Influenza Vaccine (FLU shot) Completed 12/2024, 05/01/2023, 03/14/2022, Additional history exists HPV (Gardasil) Vaccine Aged Out No lo nger eligible based on patient's age to complete this topic Hepatitis B Vaccine Aged Out No longe r eligible based on patient's age to complete this topic MENINGOCOCCAL (MENACTRA/MENVEO) Aged Out No longer eligible based on patient's age to complete this topic Meningitis B Vaccine (Bexsero/Trumemba) Aged Out No longer eligible based on patient's age to complete this topic documented as of this encounter Medical Devices Not on filedocumented as of this encounter Care Teams Credit Consultant Relationship Specialty Start Date End Date Jerad Agrawal MD PCP - General 06/09/02 documented as of this encounter
--- OUTSIDE RECORDS SUMMARY | 2024-07-19 06:48 | External Medical Summary | Summary of Care ---
Author Name Unknown Organization [facility] Address [address] [facility] [address] Phone [phone] Care Team Providers Care Loader Machine Name Role Phone Jerad Agrawal MD Primary Care Provider Reason for Visit * Reason Onset Date Comments Advice 07/05/2024 Encounter Details Date Type Department Care Team (Late st Contact Info) Description 07/05/2024 Telephone 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 09/06/2021 Type 2 diabetes mellitus wit h hemoglobin A1c goal of less than 7.0% 07/06/2020 B12 deficiency 06/08/2020 Numbness and tingling in left hand 02/06/2017 Patellofemoral pain syndrome 02/11/2012 HTN, goal below 140/90 06/25/2010 Dyslipidemia, goal LDL below 100 documented as of this encounter (statuses as of 07/14/2024) Resolved Problems Problem Noted Date Diagnosed Date [...] as of this encounter (statuses as of 07/14/2024) Immunizations Name Administration Dates Next Due Pneumococcal Conjugate Vacci ne, 20-valent ([id number]) 05/01/2023 Pneumococcal Polysaccharide PPV23 (Pneumovax) 09/06/2021 Seasonal [...] encounter Miscellaneous Notes * Telephone Encounter - Ailyn Niurkasa Eric LPN - 07/14/2024 9:35 AM EST Patient is here today In our office for a pre-op appointment. I called Dr. De La Torre's office to clarify if they need a form completed along with the appointment today and the nurse was unsure and was going to message the pre-op team and give me a call back to confirm and also give me a fax number theOV needs sent to. * Telephone Encounter - Niurka Robertson LPN - 07/13/2024 2:54 PM EST I called [...] Care Team (Late st Contact Info) Description 07/15/2024 10:30 AM EST Office Visit Orthopaedics [facility] [address] [place] [phone] Ángel Santos MD [address] [place] [phone] 11/18/2024 12:00 PM EDT Office Visit Family Practice, [place] [address] [phone] Jerad Agrawal MD [address] [place] [address] 12/02/2024 9:30 AM EDT Nurse Only Ancillary Department, [place] [address] [phone] Roberto, Nurse [address] [place] [address] Scheduled Procedures Name Priority Associated Diagnoses Date/Ti [...] filedocumented as of this encounter Care Teams Loader Machine Relationship Specialty Start Date End Date Jerad Agrawal MD [address] [facility] [place] [address] PCP - General 06/09/02 documented as of this encounter
--- OUTSIDE RECORDS SUMMARY | 2024-07-19 06:48 | External Medical Summary | Summary of Care ---
Author Name Unknown Organization [facility] Address [address] [place] [address] Phone [phone] Care Team Providers Care Game Trapper Name Role Phone Jerad Agrawal MD Primary Care Provider [phone] Reason for Visit * Reason Comments pre-op exam Patient is here toda y for a pre-op appointment. Patient states no concerns. Encounter Details Date Type Department Care Team (Late st Contact Info) Description 07/14/2024 9:20 AM EST Office Visit [facility] [address] [place] [address] Jerad Agrawal MD [address] [facility] [place] [address] Abnormal CXR (chest x-ray)* Allergies No known active allergiesdocumented as of this encounter (statuses as of 07/15/2024) Medications ASPIRIN EC 81 MG PO TBEC [...] before bedtime with food for restless legs 60915 Tablet 11 5 Active Lisinopril-hydro CHLOROthiazide 20-25 [...] as of this encounter (statuses as of 07/15/2024) Active Problems Problem Noted Date Diagnosed Date 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 09/06/2021 Type 2 diabetes mellitus wit h hemoglobin A1c goal of less than 7.0% 07/06/2020 B12 deficiency 06/08/2020 Numbness and tingling in left hand 02/06/2017 Patellofemoral pain syndrome 02/11/2012 HTN, goal below 140/90 06/25/2010 Dyslipidemia, goal LDL below 100 documented as of this encounter (statuses as of 07/15/2024) Resolved Problems Problem Noted Date Diagnosed Date [...] as of this encounter (statuses as of 07/15/2024) Immunizations Name Administration Dates Next Due Pneumococcal Conjugate Vacci ne, 20-valent ([id number]) 05/01/2023 Pneumococcal Polysaccharide PPV23 (Pneumovax) 09/06/2021 Seasonal Influenza Vac., MDV , IM, 0.5 mL (Fluzone) 02/10/2014,04/20/2013,04/23/2012,01/26 Seasonal Influenza, PF, 6 M & above, IM , (FluLaval or Fluzone) 05/01/2023,03/14/2022,03/08/2021,02/06 Seasonal Influenza, Quadriva lent, No Preserve, IM 04/25/2016,04/24/2015 Seasonal Influenza, Trivalen t, (IIV3), PF, (Fluzone) 05/18/2024 TD, Preservative Free 10/24/2016 TDAP, Age 8 [...] PM EDT documented as of this encounter Last Filed Vital Signs Vital Sign Reading Time Taken Comments Blood Pressure 123/82 07/14/2024 9:24 AM EST Pulse 75 07/14/2024 9:24 AM EST Temperature 36.5 C (97.7 F) 07/14/2024 9:24 AM ES T Respiratory Rate 18 07/14/2024 9:24 AM EST Oxygen Saturation 96% 07/14/2024 9:24 AM EST Inhaled Oxygen Concentration - - Weight 108.3 kg (238 lb 11.2 oz) 07/14/2024 9:24 AM EST Height 177.8 cm (5' 10") 07/14/2024 9:24 AM EST Body Mass Index 34.25 07/14/2024 9:24 AM EST documented in this encounter Progress Notes * Jerad Agrawal MD - 07/14/2024 9:47 AM EST Subjective: Bg Gonsalves is a 64 year old male. Chief Complaint Patient presents with pre-op exam Patient is here today for a pre-op appointment. Patient states no concerns. HPI: 64-year-old is scheduled for left hip replacement surgery with Dr. De La Torre at [facility] on July 19. He did his pre anesthesia clinic with [facility] in late June. Routine preop chest x-ray was readby radiology as showing a mild pneumonitis at the right base. It is also noted that patient has a right diaphragmatic hump on chest x-ray. He has not been bothered with recurrent fever. He has not had a chronic cough. A few days ago (after he had the chest x- ray) he had developed some nasal drainage and congestion but that was not associated with cough or shortness of breath or fever. Thosesymptoms have pretty much resolved. Additionally he is not bothered with exertional chest pain or heart racing. Patient Active Problem List Diagnosis HTN, goal below 140/90 Dyslipidemia, goal LDL below 100 Patellofemoral pain syndrome Numbness and tingling in left hand B12 deficiency Type 2 diabetes mellitus with hemoglobin A1c goal of less than 7.0% ([facility]) Type 2 diabetes mellitus with diabetic polyneuropathy ([facility]) Current Outpatient Medications Medication Sig Dispense Refill ASPIRIN EC 81 MG PO TBEC Take one pill daily 100 Tab 3 VITAMIN D3 2000 UNITS PO CAPS Take 1 capsule daily. 90 Cap 1 Meclizine HCl 25 MG Oral Tablet (Antivert) Take 0.5-1 Tablets by mouth 3 times a day as needed for Dizziness. 30 Tablet 1 metFORMIN HCl ER 500 MG Oral Tablet Extended Release 24 Hour (Glucophage XR) TAKE TWO TABLETS BY MOUTH DAILY WITH A MEAL 180 Tablet 3 Vitamin B-12 1000 MCG Oral Tablet (Cyanocobalamin) TAKE 1 TABLET BY MOUTH ONCE DAILY 90 Tablet 3 Ibuprofen 200 MG Oral Tablet (Motrin) Take 1 Tablet by mouth every 6 hours as needed. amLODIPine Besylate 2.5 MG Oral Tablet (Norvasc) TAKE 1 TABLET BY MOUTH EVERY MORNING 90 Tablet 3 rOPINIRole HCl 0.5 MG Oral Tablet (Requip) TAKE 1 TABLET BY MOUTH AT BEDTIME. AFTER 2 WEEKS MAY INCREASE TO TWO TABLETS AT BEDTIME. AFTER ANOTHER 2 WEEKS MAY INCREASE TO 3 TABLETS AT BEDTIME 90 Tablet 0 Metoprolol Succinate ER 50 MG Oral Tablet Extended Release 24 Hour (toPROL XL) TAKE 1 TABLET BY MOUTH ONCE DAILY 90 Tablet 3 rOPINIRole HCl 1 MG Oral Tablet (Requip) 2mg 1-3 hours before bedtime with food for restless legs 78702 Tablet 11 Lisinopril-hydroCHLOROthiazide 20-25 MG Oral Tablet TAKE 1 TABLET BY MOUTH ONCE DAILY 90 Tablet 1 Atorvastatin Calcium 20 MG Oral Tablet (Lipitor) TAKE 1 TABLET BY MOUTH EVERY EVENING 90 Tablet 1 Allopurinol 300 MG Oral Tablet (Zyloprim) TAKE 1 TABLET BY MOUTH EVERY MORNING 90 Tablet 1 No current facility-administered medications for this visit. Review of patient's allergies indicates: No Known Allergies Objective: BP 123/82 (BP Site: Left Arm, BP Position: Sitting, BP Cuff Size: Large) | Pulse 75 | Temp 97.7 F(36.5 C) (Tympanic) | Resp 18 | Ht 5' 10" (1.778 m) | Wt 238 lb 11.2 oz (108.3 kg) | SpO2 96% | BMI 34.25 kg/m | BSA 2.31 m Physical Exam: CONST: alert, pleasant, no acute distress HEAD: normocephalic, atraumatic NECK: supple, soft, no adenopathy EARS: canals normal, TMs normal Eyes - PERRLA, EOM'I OROPHARYNX: clear, no swelling or erythema, moist CV: regular rate and rhythm, no murmur CHEST: clear to auscultation bilaterally, no rales or wheezing ABD: soft, non tender, non distended, no masses or hepatosplenomegaly EXT: no edema, no joint swelling or deformities, ASSESSMENT/PLAN: Abnormal CXR (chest x-ray) (Primary)-we will repeat the chest x-ray today. Clinically he does not seem to have any evidence of a pulmonary infection. Nonetheless will repeat the chest x-ray to make sure in particular that there was no worsening of findings. - XR CHEST 2 VIEWS Addendum: Chest x-ray PA and lateral was done today in the office 07/14/2024. No abnormalities werenoted. No further testing felt to be necessary as the patient is considered to be medically optimized Jerad Agrawal MD documented in this encounter Nursing Notes * Niurka Robertson LPN - 07/14/2024 9:24 AM EST The patient has been properly identified by confirmation of name and date of . Chief Complaint Patient presents with pre-op exam Patient is here today for a pre-op appointment. Patient states no concerns. documented in this encounter Plan of Treatment Upcoming Encounters Date Type Department Care Team (Late st Contact Info) Description 07/15/2024 10:30 AM EST Office Visit Orthopaedics [facility] [address] [place] [phone] Ángel Santos MD [address] [place] [phone] 11/18/2024 12:00 PM EDT Office Visit Family Practice, Roberto Alonso [address] [phone] Jerad Agrawal MD [address] [id number] 12/02/2024 9:30 AM EDT Nurse Only Ancillary Department, Roberto P[address]rez [address] [phone] Roberto Nurse [address] [id number] Scheduled Procedures Name Priority Associated Diagnoses Date/Ti me COLONOSCOPY FLEXIBLE PROXIMA L DIAGNOSTIC Recall History of colonic polyps Health Maintenance Due Date Last Done Comments Cologuard 2006 Fecal Occult Blood Test 2006 Sigmoidoscopy 2006 COVID-19 Vaccine (1 - season) 2024 Zoster Vaccines (2 of 2) [...] Procedure Name Priority Date/Time Associated Diagnosis Comments XR CHEST 2 VIEWS Routine 07/14/2024 10:2 8 AM EST Abnormal CXR (chest x-ray) documented in this encounter Results * XR CHEST 2 VIEWS (07/14/2024 10:28 AM EST) Anatomical Region Laterality Modality Chest Digital Radiogra phy 07/14/2024 2:40 PM EST Impressions 07/14/2024 2:38 PM EST IMPRESSION No evidence of acute cardiopulmonary disease. Narrative 07/14/2024 2:38 PM EST EXAM XR CHEST 2 VIEWS-07/14/2024 10:28 am HISTORY abnormal VCXR done as preop [facility] 07/05/24 COMPARISON Chest radiograph 07/12/2019.. TECHNIQUE PA and lateral views of the chest are examined. FINDINGS The lungs are clear. There is no pleural effusion. The pulmonary vasculature and cardiomediastinal silhouette are within normal limits. No acute osseous finding. Procedure Note Torsten Naqvi MD - 07/14/2024 EXAM XR CHEST 2 VIEWS-07/14/2024 10:28 am HISTORY abnormal VCXR done as preop [facility] 07/05/24 COMPARISON Chest radiograph 07/12/2019.. TECHNIQUE PA and lateral views of the chest are examined. FINDINGS The lungs are clear. There is no pleural effusion. The pulmonaryvasculature and cardiomediastinal silhouette are within normal limits. Noacute osseous finding. IMPRESSION IMPRESSION No evidence of acute cardiopulmonary disease. us Jerad Agrawal MD RADIOLOGY ([facility]) Final R esult documented in this encounter Visit Diagnoses Diagnosis Abnormal CXR (chest x-ray)- Primary Other nonspecific abnormal finding of lung field documented in this encounter Care Teams Game Trapper Relationship Specialty Start Date End Date Jerad Agrawal MD [address] [id number] PCP - General 06/09/02 documented as of this encounter
--- OUTSIDE RECORDS SUMMARY | 2024-07-19 06:49 | External Medical Summary | Summary of Care ---
Author Name Unknown Organization [facility] [address] [facility] [address] Phone [phone] Care Team Providers Care Piano Technician Name Role Phone Jerad Agraawl MD Primary Care Provider Reason for Visit * Reason Onset Date Comments Advice 07/05/2024 Encounter Details Date Type Department Care Team (Late st Contact Info) Description 07/05/[address] [facility] [address] [place] [address] Jerad Agrawal MD [address] [place] [address] Advice Allergies No known active [...] before bedtime with food for restless legs 96206 Tablet 11 5 Active Lisinopril-hydro CHLOROthiazide 20-25 [...] Next Due Pneumococcal Conjugate Vacci ne, 20-valent ([id number]) 05/01/2023 Pneumococcal Polysaccharide PPV23 (Pneumovax) 09/06/2021 Seasonal [...] encounter Miscellaneous Notes * Telephone Encounter - Jerad Agrawal MD [...] 07/15/2024 10:30 AM EST Office Visit Orthopaedics [facility] [address] [place] [phone] Ángel Santos MD [address] [place] [phone] 11/18/2024 12:00 PM EDT Office Visit Family [facility], Roberto Alonso [address] [phone] Jerad Agrawal MD [address] [id number] 12/02/2024 9:30 AM EDT Nurse Only Ancillary Department, Roberto Pérez [address] [phone] Nurse Roberto [address] [address] Scheduled Procedures Name Priority Associated Diagnoses Date/Ti me COLONOSCOPY FLEXIBLE PROXIMA L DIAGNOSTIC Recall History of colonic polyps Health Maintenance Due Date Last Done Comments Cologuard 2006 Fecal Occult Blood Test 2006 Sigmoidoscopy 2006 COVID-19 Vaccine ( - season) 2024 Zoster Vaccines (2 of [...] filedocumented as of this encounter Care Teams Piano Technician Relationship Specialty Start Date End Date Jerad Agrawal MD PCP - General 06/09/02 documented as of this encounter
--- OUTSIDE RECORDS SUMMARY | 2024-07-19 06:49 | External Medical Summary | Summary of Care ---
Author Name Unknown Organization [facility] Address [address] [facility] [place] [address] Phone [phone] Care Team Providers Care Sole Leather Cutting Machine Operator Name Role Phone Jerad Agrawal MD Primary Care Provider [phone] Encounter Details Date Type Department Care Team (Late st Contact Info) Description 06/30/2024 Orders Only [facility] [address] [facility] [place] [phone] Jerad Agrawal MD [address] [facility] [place] [id number] Allergies No known active allergiesdocumented as of this encounter (statuses as of 06/30/2024) Medications ASPIRIN EC 81 MG PO TBEC [...] before bedtime with food for restless legs 20327 Tablet 11 5 Active Lisinopril-hydro CHLOROthiazide 20-25 [...] as of this encounter (statuses as of 06/30/2024) Active Problems Problem Noted Date Diagnosed Date 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 09/06/2021 Type 2 diabetes mellitus wit h hemoglobin A1c goal of less than 7.0% 07/06/2020 B12 deficiency 06/08/2020 Numbness and tingling in left hand 02/06/2017 Patellofemoral pain syndrome 02/11/2012 HTN, goal below 140/90 06/25/2010 Dyslipidemia, goal LDL below 100 documented as of this encounter (statuses as of 06/30/2024) Resolved Problems Problem Noted Date Diagnosed Date [...] as of this encounter (statuses as of 06/30/2024) Immunizations Name Administration Dates Next Due Pneumococcal Conjugate Vacci ne, 20-valent ([id number]) 05/01/2023 Pneumococcal Polysaccharide PPV23 (Pneumovax) 09/06/2021 Seasonal [...] PM EDT documented as of this encounter Plan of Treatment Upcoming Encounters Date Type Department Care Team (Late st Contact Info) Description 07/15/2024 10:30 AM EST Office Visit Orthopaedics [facility] [address] [phone] Ángel Santos MD [address] [place] [phone] 11/18/2024 12:00 PM EDT Office Visit Family Practice, Roberto Alonso [address] [place] [phone] Jerad Agrawal MD [address] [place] [address] 12/02/2024 9:30 AM EDT Nurse Only Ancillary Department, Roberto Langstonchristopher Pérez [address] [phone] Nurse Roberto [address] [place] [address] Scheduled Procedures Name Priority Associated Diagnoses Date/Ti me COLONOSCOPY FLEXIBLE PROXIMA L DIAGNOSTIC Recall History of colonic polyps Health Maintenance Due Date Last Done Comments Cologuard 2006 Fecal Occult Blood Test 2006 Sigmoidoscopy 2006 COVID-19 Vaccine ( season) 2024 Diabetic Eye Exam 07/01/2024 06/29/2024, , 06/03/2021 Zoster Vaccines (2 of 2) 07/27/2024 06/01/2024 HbA1c 09/18/2024 03/21/2024, 10/10, 05/01/2023, Additional history exists Depression Screening 11/05/2024 11/06/2023 Diabetic Foot Exam 11/05/2024 11/06/2023 Albumin/Creatinine Ratio 03/21/2025 024, 05/01/2023, 05/30/2022, Additional history exists B-12 03/21/2025 03/21/2024, 04/11, 05/30/2022, Additional history exists GFR 03/21/2025 03/21/2024, 04/11, 05/30/2022, Additional history exists Colonoscopy 08/01/2025 08/01/2022, 07/10, [...] Associated Diagnosis Comments DIABETIC EYE EXAM Routine 06/29/2024 documented in this encounter Results * DIABETIC EYE EXAM (06/29/2024) 06/29/2024 us Tess Hannah OD OTHER Final R esult OUTSIDE LAB (SEE SCANNED REPORT) documented in this encounter Care Teams Sole Leather Cutting Machine Operator Relationship Specialty Start Date End Date Jerad Agrawal MD PCP - General 06/09/02 documented as of this encounter
--- OUTSIDE RECORDS SUMMARY | 2024-07-19 06:49 | External Medical Summary | Summary of Care ---
Author Name Unknown Organization [facility] Address [address] [place] [facility] [place] [address] Phone [phone] Care Team Providers Care Print Developer Name Role Phone Jerad Agrawal MD Primary Care Provider [phone] Encounter Details Date Type Department Care Team (Late st Contact Info) Description 07/01/2024 Orders Only [facility] [address] [facility] [phone] Jerad Agrawal MD [address] 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 09/06/2021 Type 2 diabetes mellitus wit h hemoglobin A1c goal of less than 7.0% 07/06/2020 B12 deficiency 06/08/2020 Numbness and tingling in left hand 02/06/2017 Patellofemoral pain syndrome 02/11/2012 HTN, goal below 140/90 06/25/2010 Dyslipidemia, goal LDL below 100 documented as of this encounter (statuses as of 07/01/2024) Resolved Problems Problem Noted Date Diagnosed Date [...] as of this encounter (statuses as of 07/01/2024) Immunizations Name Administration Dates Next Due Pneumococcal Conjugate Vacci ne, 20-valent ([id number]) 05/01/2023 Pneumococcal Polysaccharide PPV23 (Pneumovax) 09/06/2021 Seasonal [...] 07/15/2024 10:30 AM EST Office Visit Orthopaedics [facility] [address] [place] [phone] Ángel Santos MD [address] [place] [phone] 11/18/2024 12:00 PM EDT Office Visit Family Practice, Roberto Alonso [address] [place] [phone] Jerad Agrawal MD [address] [place] [address] 12/02/2024 9:30 AM EDT Nurse Only Ancillary Department, Roberto Sanchez [address]o [address] [place] [phone] Nurse Roberto [address] [place] [address] Pending Results Name Type Priority Associated Diagnoses Date /Time XR CHEST 2 VIEWS Medical Imaging Routine Scheduled Procedures Name Priority Associated Diagnoses Date/Ti me COLONOSCOPY FLEXIBLE PROXIMA L DIAGNOSTIC Recall History of colonic polyps Health Maintenance Due Date Last Done Comments Cologuard 2006 Fecal Occult Blood Test 2006 Sigmoidoscopy 2006 COVID-19 Vaccine ( season) 2024 Zoster Vaccines (2 of 2) 07/27/2024 06/01/2024 HbA1c 09/18/2024 06/29/2024, 03/11, 10/29/2023, Additional history exists Depression Screening 11/05/2024 11/06/2023 Diabetic Foot Exam 11/05/2024 11/06/2023 Albumin/Creatinine Ratio 03/21/2025 024, 05/01/2023, 05/30/2022, Additional history exists B-12 03/21/2025 03/21/2024, 04/11, 05/30/2022, Additional history exists GFR 03/21/2025 06/29/2024, 03/11, 05/01/2023, Additional history exists Diabetic Eye Exam 06/29/2025 06/29/2024, , 06/03/2021 Colonoscopy 08/01/2025 08/01/2022, 07/10, 12/12/2011, Additional [...] Procedure Name Priority Date/Time Associated Diagnosis Comments CHEMISTRY-OUTSIDE Routine 06/29/2024 documented in this encounter Results * (ABNORMAL) CHEMISTRY-OUTSIDE (06/29/2024) Not all results display below - see scan for full detail SCAN INCLUDES PRE ADMISSION: PT INR, PTT, BMP, CRP, HA1C, CBCD OUTSIDE LAB (SEE SCANNED REPORT) CREATININE 0.89 0.6 - 1.4 MG/DL OUTSIDE LAB (SEE SCANNED REPORT) EGFR 96.29 OUTSIDE LA B (SEE SCANNED REPORT) POTASSIUM 3.5 3.5 - 5.1 MMOL/L OUTSIDE LAB (SEE SCANNED REPORT) GLUCOSE 79 70 - 99 MG/DL OUTSIDE LAB (SEE SCANNED REPORT) HOURS FASTING OUTSID E LAB (SEE SCANNED REPORT) TRIGLYCERIDES-OU TSIDE LAB OUTSIDE LAB (SEE SCANNED REPORT) CHOLESTEROL-OUTS MATIAS LAB OUTSIDE LAB (SEE SCANNED REPORT) HDL-OUTSIDE LAB OUTS MATIAS LAB (SEE SCANNED REPORT) CHOL/HDL RATIO-OUTSIDE LAB OUTSIDE LAB (SEE SCANNED REPORT) LDL (CALCULATED)-OUT SIDE LAB OUTSIDE LAB (SEE SCANNED REPORT) LDL (DIRECT MEASURE)-OUTSIDE LAB OUTSIDE LAB (SEE SCANNED REPORT) HEMOGLOBIN, [id number] LAB 6.3(A) 4.5 - 5.6 % OUTSIDE LAB (SEE SCANNED REPORT) PHOSPHORUS-OUTSI DE LAB OUTSIDE LAB (SEE SCANNED REPORT) PTH-OUTSIDE LAB OUTS MATIAS LAB (SEE SCANNED REPORT) MICROALBUMIN RATIO-OUTSIDE LAB OUTSIDE LAB (SEE SCANNED REPORT) PROTEIN, UA-OUTSIDE LAB OUTSIDE LAB (SEE SCANNED REPORT) HGB 14.9 14.0 - 18.0 G/DL OUTSIDE LAB (SEE SCANNED REPORT) 06/29/2024 us Bravo De La Torre MD LABORATORY Edited R esult - Final OUTSIDE LAB (SEE SCANNED REPORT) documented in this encounter Care Teams Print Developer Relationship Specialty Start Date End Date Jerad Agrawal MD PCP - General 06/09/02 documented as of this encounter
--- OUTSIDE RECORDS SUMMARY | 2024-07-19 06:49 | External Medical Summary | Summary of Care ---
Author Name Unknown Organization [facility] Address [address] [facility] [place] [address] Phone [phone] Care Team Providers Care Rehabilitation Counselor Name Role Phone Jerad Agrawal MD Primary Care Provider [phone] Encounter Details Date Type Department Care Team (Late st Contact Info) Description 06/29/2024 Result Scan Unspecified Department <No scans attached> Allergies No known active allergiesdocumented as of [...] before bedtime with food for restless legs 75136 Tablet 11 5 Active Lisinopril-hydro CHLOROthiazide 20-25 [...] Next Due Pneumococcal Conjugate Vacci ne, 20-valent ([id number]) 05/01/2023 Pneumococcal Polysaccharide PPV23 (Pneumovax) 09/06/2021 Seasonal [...] 07/15/2024 10:30 AM EST Office Visit Orthopaedics [facility] [address] [phone] Ángel Santos MD [address] [phone] 11/18/2024 12:00 PM EDT Office Visit [facility] Edu Alonso [address] [phone] Jerad [facility]al MD [facility] [place] [address] 12/02/2024 9:30 AM EDT Nurse Only Ancillary Department, Roberto Sanchez Beto [address] [phone] Roberto, Nurse [address] [address] Scheduled Procedures Name Priority Associated Diagnoses Date/Ti [...] Procedure Name Priority Date/Time Associated Diagnosis Comments EKG SCANNED RESULT 06/29/2024 documented in this encounter Results * EKG SCANNED RESULT (06/29/2024) 06/29/2024 us No Physician Data Unknown EKG Final Result documented in this encounter Care Teams Rehabilitation Counselor Relationship Specialty Start Date End Date Jerad Agrawal MD PCP - General 06/09/02 documented as of this encounter
--- NOTE | 2024-07-19 06:51 | History & Physical Bridge Note ---
Date of Service July 19, 2024 History & Physical Bridge Note I have examined the patient, reviewed the History & Physical and in the interval since the performance of the History & Physical I have noted the following changes of clinical significance: no changes noted
[2024-07-19] MEDS: dexAMETHasone**PF** 10 MG/ML VIAL IV SCH (06:56)
[2024-07-19] MEDS: ACETAMINOPHEN 500 MG TAB PO SCH ×2 (06:57→14:20)
[2024-07-19] MEDS: CeleBREX 200 MG CAP PO SCH (06:57)
[2024-07-19] MEDS: METOCLOPRAMIDE HCL 10 MG TABLET PO SCH (06:57)
[2024-07-19] MEDS: FAMOTIDINE 20 MG TAB PO SCH (06:57)
[2024-07-19] MEDS: LR 60ML/HR IV SCH (06:58)
[2024-07-19] MEDS: LR 500ML BOLUS, THEN 15ML/HR IV SCH (07:15)
[2024-07-19] MEDS ORDERED: ONDANSETRON INJ 2 MG/ML 2 ML VIAL ONE ×2 (07:27→10:45)
[2024-07-19] MEDS ORDERED: PROPOFOL IV EMULSION 10 MG/ML 20 ML VIAL IV ONE (07:27)
[2024-07-19] MEDS ORDERED: MIDAZOLAM HCL 1 MG/ML 2ML VIAL ONE ×3 (07:27→09:25)
[2024-07-19] MEDS ORDERED: ATROPINE SULFATE 0.1 MG/ML 10ML SYR IV PRN (08:29)
[2024-07-19] MEDS ORDERED: ONDANSETRON INJ 2 MG/ML 2 ML VIAL IV PRN ×2 (08:29→12:01)
[2024-07-19] MEDS ORDERED: ePHEDrine sulfate 50 MG/ML AMP IV PRN (08:29)
[2024-07-19] MEDS ORDERED: fentaNYL citrate PF 100 MCG/2 ML VIAL IV PRN (08:29)
[2024-07-19] MEDS: TRANEXAMIC ACID 1,000 MG **IV Pre-op IV SCH (09:07)
[2024-07-19] MEDS: ceFAZolin 2000MG 2,000 MG/15 ML SYR IV SCH ×2 (09:20→16:37)
[2024-07-19] MEDS ORDERED: KETAMINE HCL 10MG/ML SYR ONE (09:44)
[2024-07-19] MEDS: BUPIVACAINE/EPINEPHRINE 0.5% MPF 1:200,000 30 ML VIAL ONE (09:46)
[2024-07-19] MEDS ORDERED: KETOROLAC 30 MG/ML VIAL ONE (09:47)
[2024-07-19] MEDS ORDERED: ePHEDrine sulfate 50 MG/5 ML SYR ONE (09:51)
[2024-07-19] MEDS ORDERED: PHENYLEPHRINE 100MCG/ML 5ML SYR ONE (10:11)
[2024-07-19] MEDS ORDERED: METOPROLOL TARTRATE 1 MG/ML VIAL IV ONE (10:28)
--- NOTE | 2024-07-19 11:09 | Operative Report ---
PG Post Operative Report Pre & Post Diagnosis Operation Date: 07/19/24 08:50 Pre-Op Diagnosis: Left Hip Osteoarthritis Post-Op Diagnosis: Left Hip Osteoarthritis I identified the patient and participated in the time-out.: Yes Procedure Operation Date: 07/19/24 08:50 Actual Procedures p Left Total Hip Arthroplasty(Left) - Bravo De La Torre MD Surgeon Bravo De La Torre MD Barrel Charrer Helper Rylie El PA-C Estimated Blood Loss 150 Findings Consistent with Post-Op Diagnosis Operative findings revealed moderate to advanced hip arthritis. He did have a fairly large ganglion on the anterior aspect of his hip. Small hip effusion. Small anterior acetabular osteophytes. Specimens Left femoral head sent for pathology. Anesthesia Type Spinal MAC Complications none Disposition Accompanied Patient To Recovery: No Indications Patient is a 64-year-old fairly active gentleman whose had progressive left hip pain discomfort described to gotten worse over time. Does have a history of a right hip replacement done several years ago and says this is exactly how his other hip felt. He been treated conservatively without adequate relief. Continues to be bothered by pain. He had an MRI which showed progressive and significant hip arthritis and hip joint effusion. He failed conservative measures and elected proceed with total hip arthroplasty. Description of Procedure Operative implants consist of: 1. Biomet G7 size 56 mm acetabular shell. 2. [place] hole lens maker. 3. 6.5 cancellous acetabular screws 1 at 35 mm length operative implants consist of: 1. Biomet G7 size 56 mm acetabular shell. 2. [place] hole lens maker. 3. 6.5 cancellous acetabular screws 1 at 35 mm length and 1 of 30 mm length. 4. Highly cross-linked polyethylene liner with a 56 mm outer diam and 36 mm inner diameter. 5. [place] size 12 KLA femoral stem. 6. +5/36 mm ceramic articular ball. The patient was taken the op room, identified, placed on the operating table in supine position. All conductors were appropriately padded. IV antibiotics arrived by anesthesia team. A spinal anesthetic had been implemented holding area. The patient was then placed in the right lateral decubitus position. An axillary roll was placed. A stool Birkett position was used for positioning. The left hip and leg were then prepped and draped in usual sterile fashion. A posterolateral approach to the left hip was then performed with a curvilinear incision centered over the greater trochanter. Sharp dissection scalp through subcutaneous tissue dental of the IT band gluteal fascia with the IT band gluteal fascia incised longitudinally in line with skin incision. The underlying greater bursa was excised. The piriformis and external rotators along with the posterior hip joint capsule were then released from the posterior aspect hip as a single layer. Great care was taken throughout the procedure protect the sciatic nerve at all times. The hip was then internally rotated and dislocated. A femoral neck osteotomy cut was made with a Final Cut 2 cm above the lesser trochanter. Femoral head was removed and sent for pathology. The femur was retracted anteriorly. Attention was then drawn to the acetabulum. The acetabulum labrum was excised. The pulmonary fat was excised. Upon doing this there was a large ganglion material tissue in the front of his hip joint. I very carefully remove this with the use of cautery. I took this out in pieces as I did not want to be too aggressive for fear of exposing the anterior neurovascular structures. I did very carefully remove this in about 3 to 4 pieces and felt like I got the entire ganglion. It does look like a benign appearing ganglion material with some slight fluid in it. Attention drawn to the acetabular route reaming. The acetabulum was reamed beginning with a size 47 progressing up to 55. Reamed a little bit with a 56 reamer and then placed a 56 mm Biomet G7 acetabular shell in about 40 degrees lateral opening and 20 degrees of anteversion. It was fixed with two 6.5 screws. A small anterior osteophyte was removed. Trial liner was placed. Attention drawn the femur. The proximal femur was entered with a cookie cutter followed by canal finder. Then broached beginning a size 8 and progressing up to 12. Got excellent fitted to 12. Then trialed the hip and the +5 articular ball provided excellent stability, appropriate soft tissue tension, and equal leg lengths. I elected to place these implants. Nupathe all trial implants were removed. An apex hole lens maker was placed. Highly cross-linked polyethylene liner was placed. A KLA size 12 femoral stem was impacted in position. A +5/36 mm ceramic articular ball was placed. Hip was located once again found to be stable. Attention d rawn toward closing. The wounds irrigated coconuts pulsatile lavage solution. I did inject locally with the 60 cc of half percent Marcaine with epinephrine. The posterior capsule and external rotators then repaired through drill holes in the posterior trochanter with #2 Tycron suture. The IT band gluteal fascia then closed in 1 PDS suture running fashion. Subcutaneous tissue then closed with 2 layers with deep layer #1 Vicryl suture in the subcutaneous tissues with 2-0 Dexon suture in a buried interrupted fashion. Skin was closed skin orlin. Leg was then cleaned and dried and a sterile dressing composed of Xeroform, 4 x 4's, ABD pad and foam tape was applied. The patient then transferred to the recovery room in stable condition. Patient tolerated procedure well and there were no complications. Rylie El, my physician seismic survey assistant, was present for the entire procedure. His assistance was essential and required for appropriate patient positioning, prepping and draping, surgical exposure, performing the technical details of the operation, placement the implants, closure of the wound, and placement of the sterile bandage. I attest to the content of the Intraoperative Record and any orders documented therein. Any exceptions are noted below.
--- NOTE | 2024-07-19 11:38 | XRay Report ---
XR hip 1V LT w pelvis CLINICAL HISTORY: IN PACU - Post Surgical hip replacement COMPARISON: None pertinent FINDINGS: AP pelvis and lateral the left hip demonstrate a left hip arthroplasty with satisfactory p ositioning and alignment of the prosthetic components. Postsurgical changes are noted in the soft tis sues surrounding the left hip. A prior right hip arthroplasty is identified on the pelvis image. IMPRESSION: Satisfactory postop appearance ACT 112: Negative or not required by law. Electronically signed by: Damaris Mcmanus M.D. 07/19/2024 11:36 AM
[2024-07-19] MEDS ORDERED: MAGNESIUM HYDROXIDE SUSP 30 ML UDC PO PRN (12:01)
[2024-07-19] MEDS ORDERED: HYDROmorphone INJ 0.5 MG/0.5 ML SYR IV PRN (12:01)
[2024-07-19] MEDS ORDERED: METOCLOPRAMIDE HCL INJ 5 MG/ML 2 ML VIAL IV PRN (12:01)
[2024-07-19] MEDS ORDERED: NALOXONE HCL 0.4 MG/1 ML VIAL/CARP IV PRN (12:01)
[2024-07-19] MEDS ORDERED: MECLIZINE HCL 25 MG TAB PO PRN (12:01)
[2024-07-19] MEDS ORDERED: bisacodyL 10 MG SUPP PR PRN (12:01)
[2024-07-19] MEDS ORDERED: ALUMINUM/MAGNESIUM SUSP 30 ML UDC PO PRN (12:01)
--- NOTE | 2024-07-19 12:02 | Anesthesiology Progress Note ---
Date of Service July 19, 2024 Anesthesia Post Procedure Vital Signs Vital Signs: Temp Pulse Pulse Resp BP Pulse Ox O2 Del Method 07/19/24 11:40 64 18 111/72 94 Room Air 07/19/24 11:30 36.4 C L 62 14 119/75 94 Room Air 07/19/24 11:20 68 18 103/73 96 Oxymask 07/19/24 11:10 66 20 98/67 L 97 Oxymask 07/19/24 11:01 36 C L 66 18 88/65 L 96 Oxymask 07/19/24 06:50 36.6 C 59 L 20 134/95 96 Room Air O2 Flow Rate 07/19/24 11:40 07/19/24 11:30 07/19/24 11:20 3 07/19/24 11:10 6 07/19/24 11:01 6 07/19/24 06:50 Transfer of Care Handoff Completed per policy Notes Mental Status: alert / awake / arousable Patient Amnestic to Procedure: Yes Nausea / Vomiting: adequately controlled Pain: adequately controlled Airway Patency, RR, SpO2: stable & adequate BP & HR: stable & adequate Hydration State: stable & adequate Neuraxial Anesthesia: was administered and sensory block is resolving Anesthetic Complications: no major complications apparent and Pt Satisfied with anesthetic care
[2024-07-19 12:07] VITALS: RESP 16
[2024-07-19] MEDS: KETOROLAC 30 MG/ML VIAL IV SCH (12:27)
[2024-07-19] MEDS ORDERED: ACETAMINOPHEN 500 MG TAB PO SCH (14:00)
[2024-07-19] MEDS ORDERED: GLUCAGON FOR INJ 1 MG VIAL SQ PRN (14:52)
[2024-07-19] MEDS ORDERED: CARBOHYDRATES FOR HYPOGLYCEMIA PO PRN (14:52)
[2024-07-19] MEDS ORDERED: DEXTROSE 50% 50 ML SYRINGE IV PRN (14:52)
[2024-07-19] MEDS ORDERED: GLUCOSE 10 TAB/TUBE PO PRN (14:52)
[2024-07-19] MEDS ORDERED: PHARMACY GLYCEMIC MGMT CONSULT PRN (14:52)
[2024-07-19] MEDS ORDERED: GLUCOSE 40% GEL 15 GM TUBE PO PRN (14:52)
[2024-07-19] MEDS: LANTUS PER UNIT CHARGE SC ONE ×2 (15:25→21:49)
[2024-07-19] MEDS: traMADol HCL 50 MG TABLET PO PRN (15:30)
[2024-07-19] MEDS: ASCORBIC ACID 500 MG TAB PO SCH (16:32)
[2024-07-19] MEDS: TRANEXAMIC ACID / 0.7% NACL 1,000 MG/100 ML BAG IV SCH (16:37)
[2024-07-19] MEDS: INSULIN ASPART PER UNIT CHARGE SC SCH (17:04)
--- NOTE | 2024-07-19 20:25 | Pharmacy Report ---
Pharmacy Glycemic Short Note 2 - Date of Service July 19, 2024 - Glycemic Short BSG Results (Last 24 hours): 07/19/24 07/19/24 07/19/24 06:42 11:06 16:38 POC Glucose 116 H 200 H 333 H* 07/19/24 07/19/24 16:40 16:41 POC Glucose 375 H* 405 H* OUTPATIENT ANTIDIABETIC REGIMEN: * Metformin 1000 mg qAM * A1c 6.3% 06/29/24 ASSESSMENT: * Patient admitted following left total hip arthroplasty, received 10 mg IV decadron preop * BSGs elevated post-op and patient had uncovered lunch. Dinner BSG in the 300s (average) * Lantus dose given ~1 hour prior to dinner BSG, started conservatively given A1c on oral medication only, will give additional at bedtime if BSGs remain elevated * Novolog parameters started at weight base stress of 3 adjusted body weight, will tighten if not improved at bedtime * Overnight BSG checks given significant hyperglycemia at dinnertime PLAN FOR INPATIENT GLYCEMIC CONTROL: * Hold outpatient oral diabetes medications * Basal insulin * Lantus 20 units x 1 @ 1530, additional per scale this PM * Bolus insulin * NovoLog per scale ACHS or Q6hrs while NPO * Goal Range: Low 110 mg/dL - High 140 mg/dL * Correction Factor: 20 mg/dL/unit * Nutritional / Prandial insulin per carb ratio of 1 unit per 6 grams CHO consumed
[2024-07-19] MEDS: DOCUSATE SODIUM 100 MG CAP PO SCH (20:38)
[2024-07-19] MEDS: ASPIRIN 81 MG ECTAB PO SCH (20:38)
[2024-07-19] MEDS: SENNA 8.6 MG TAB PO SCH (20:38)
[2024-07-19] MEDS: rOPINIRole HCL 2 MG TABLET PO SCH (20:39)
[2024-07-19] MEDS: ATORVASTATIN 20 MG TAB PO SCH (20:39)
[2024-07-19] MEDS ORDERED: SENNA 8.6 MG TAB PO SCH (21:00)
[2024-07-20] MEDS: INSULIN ASPART PER UNIT CHARGE SC SCH (00:19)
[2024-07-20 07:54] LABS: Basophils # (auto) 0.02 K/uL (0.00-0.20); Basophils % (auto) 0.1 %; Eosinophils # (auto) 0.02 K/uL (0.00-0.50); Eosinophils % (auto) 0.1 %; Hematocrit (blood only) 36.9 % (42.0-52.0); Immature Granulocytes # (auto) 0.17 K/uL (0.01-0.20); Immature Granulocytes % (auto) 0.9 %; Lymphocytes # (auto) 0.74 K/uL (1.20-3.40); Lymphocytes % (auto) 3.9 %; Mean Corpuscular Hemoglobin 30.4 pg (25.0-34.0); Mean Corpuscular Hgb Conc 35.2 g/dL (32.0-36.0); Mean Corpuscular Volume 86.4 fL (80.0-100.0); Mean Platelet Volume 8.5 fL (9.4-12.4); Monocytes % (auto) 6.4 %; Neutrophils # (auto) 16.65 K/uL (1.40-6.50); Neutrophils % (auto) 88.6 %; Platelet Count 238 K/uL (130-400); RDW Coefficient of Variation 12.4 % (11.5-14.5); RDW Standard Deviation 38.7 fL (36.4-46.3); Red Blood Count 4.27 M/uL (4.70-6.10)
--- NOTE | 2024-07-20 08:08 | Orthopedic Progress Note ---
Date of Service July 20, 2024 Assessment & Plan (1) Status post left hip replacement: POD 1 from a left hip total arthroplasty by Dr. De La Torre. -Should work with PT/OT. Posterior hip cautions. Discussed the use of the abduction pillow/no flexion at the hip greater than 90 degrees/do not cross his legs. -Aspirin for DVT prophylaxis. 81 mg twice daily. -Teds, SCDs and early ambulation for DVT prophylaxis -Pain control per current regimen. -Follow-up with orthopedics outpatient in 2 to 3 weeks. Subjective Operation Date: 07/19/24 08:50 Actual Procedures p Left Total Hip Arthroplasty(Left) - Bravo De La Torre MD Patient is postop day 1 from a left total hip arthroplasty. He states he is doing very well. He states his pain is under control. He has been mobilizing with nursing staff as well as independently using his walker. He states that he has a walker at home as well as other medical devices that he may need in the postoperative period. No other questions or concerns today. Review of Systems All systems reviewed & are unremarkable except as noted in HPI & below. Physical Exam General: Alert and oriented. No acute distress. Left hip: Dressing check satisfactory. No saturation of the dressing. It is dry. He is resting comfortably in his hospital bed. He has good range of motion of the left lower extremity. He is neurovascularly intact left lower extremity. Results & Data Results & Data Laboratory Results . Diagnostic Findings . PG Care Time/CCT Total # of Minutes Spent Total Time Spent with Patient: Total time spent is greater than 50% in coordination of care (as documented) at patient's floor/unit and/or counseling patient: Coding Level of Care Code 23447 Post Operative Follow-Up Diagnoses Status post left hip replacement Z96.642
[2024-07-20 08:11] LABS: BUN Creatinine Ratio 22.5 (10-20); Calcium 9.2 mg/dl (8.6-10.3); Creatinine Clr Calc Pharmacy 117.3 ml/min; Potassium 3.9 mmol/L (3.5-5.1)
[2024-07-20] MEDS: allopurinoL 300 MG TAB PO SCH (09:23)
[2024-07-20] MEDS: amLODIPine BESYLATE 5 MG TAB PO SCH (09:24)
[2024-07-20] MEDS: CHOLECALCIFEROL 25 MCG (1000 UNITS) TAB PO SCH (09:24)
[2024-07-20] MEDS: METOPROLOL SUCC 50MG EXT REL TAB PO SCH (09:25)
[2024-07-20] MEDS: MULTIVITAMIN TAB PO SCH (09:25)
[2024-07-20] MEDS: LISINOPRIL/HCTZ 20/25MG 1 TAB PO SCH (09:25)
[2024-07-20] MEDS: CYANOCOBALAMIN (B-12) 500 MCG TABLET PO SCH (09:25)
[2024-07-20] MEDS: TAMSULOSIN HCL 0.4 MG CAP PO SCH (09:26)
[2024-07-20] MEDS: dexAMETHasone 10 MG in SYRINGE 0 ML IV SCH (09:42)
[2024-07-20] MEDS: LANTUS PER UNIT CHARGE SC ONE (10:14)
[2024-07-20 10:50] VITALS: BP 122/78; PULSE 74; TEMP 97.9; O2SAT 96
--- NOTE | 2024-07-20 13:28 | Discharge Summary ---
Date of Service July 20, 2024 Admission HPI (Per Admitting) . The patient is a 64-year-old fairly active gentleman who presents for treatment of his left hip primarily at this point. He has a long history of hip pain and discomfort as well as knee pain discomfort describes gotten worse over time. The hip seems to bother him more than the knees. He had an injection of the bursa which did not help much at all. We did put shots in his knees which seem to help them more. He feels like that this pain similar to the pain he had before he had his right hip replaced with Dr. Jamie serrano 8 years ago. He now presents for surgical treatment of his left hip. Pains become more debilitating. It is affecting his ability to maintain an active lifestyle. Admission Exam (Per Admitting) . Physical examination reveals a pleasant healthy-appearing 64-year-old gentleman. Examination of the left hip reveal patient walks without any major limp. He does have clinically equal leg lengths on exam. He does have stiffness with hip motion. This recreates his pain. He can internally rotate to neutral but that is about it. Negative straight leg raise. He is neurologically intact. Principal Diagnosis Same as "Discharge Diagnosis" noted below under Discharge Instructions. Discharge Exam General: Alert and oriented. No acute distress. Left hip: Dressing check satisfactory. No saturation of the dressing. It is dry. He is resting comfortably in his hospital bed. He has good range of motion of the left lower extremity. He is neurovascularly intact left lower extremity. Discharge Data Procedures Performed Operation Date: 07/19/24 08:50 Actual Procedures p Left Total Hip Arthroplasty(Left) - Bravo De La Torre MD Hospital Course (1) Status post left hip replacement: POD 1 from a left hip total arthroplasty by Dr. De La Torre. -Should work with PT/OT. Posterior hip cautions. Discussed the use of the abduction pillow/no flexion at the hip greater than 90 degrees/do not cross his legs. -Aspirin for DVT prophylaxis. 81 mg twice daily. -Teds, SCDs and early ambulation for DVT prophylaxis -Pain control per current regimen. -Follow-up with orthopedics outpatient in 2 to 3 weeks. PG Care Time/CCT Total # of Minutes Spent Total Time Spent with Patient: Total time spent is greater than 50% in coordination of care (as documented) at patient's floor/unit and/or counseling patient: Discharge Plan Discharge Items Patient Disposition: Home - Home Health Services Reason For Visit: Left Hip Osteoarthritis Discharge Diagnosis: Left Hip Replacement Activity: Per Instructions section Activity Comment: Follow-Obey hip precautions at all times. Weightbearing: Full weightbearing Weightbearing Comment: Weightbear as tolerated obeying hip precautions at all times. Non-emergency contact: Surgeon Call non-emergency contact if: you have any medication questions Follow-up/Referrals: Jerad Agrawal MD [Primary Care Provider] - Diet: Carb Consistent or DM2 Addtl Attending Provider Instructions: ACTIVITY RECOMMENDATIONS: Diet: * You may resume previous diet. Physical Therapy: * Aggressive physical therapy is not usually needed. You will learn to take care of yourself safely and walk. * Follow the "Hip Precautions Instructions." * In some cases, the marriage and family social worker at the hospital will arrange to have a therapist come to your house for the first couple of weeks to help you learn these skills. * You need to practice on your own or with the help of a family member as needed. * When you learn these skills, most of the therapy can be done on your own. Home Exercise: * You were shown a series of exercises in the hospital. Do these exercises three to four times each day including the exercises you were shown in physical therapy. Walking: * Get up and walk several times each day. For the first four weeks, try not to stand or walk for more than one hour at a time. If you do stand or walk for more than one hour, you will not hurt anything, but your leg will likely swell. * As you feel comfortable, you may change from the walker or crutches to a cane and then to independent walking. MEDICATIONS: New Medicine: * You will likely be taking one or more of these medicines: 1. Tramadol - Take, as directed, when you need it, every six hours to control your pain. 2. Aspirin - Thins your blood to lessen the chance of forming a blood clot. * The most common side effects of pain medicine and iron are nausea and constipation. If nausea or constipation is too much of a problem or if you have any questions about your new medicines or doses, call [facility] at . We will try to help you manage these issues. "VERY IMPORTANT TO READ AND REVIEW" Pain: * The immediate post-operative period after hip replacement surgery is often quite painful. * You are given a prescription for pain medicine. You should take it, as directed, when you need it, especially before physical therapy and before going to bed. Pain that interferes with sleep is very common and can last several months. * You will likely need pain medicine for the first two to four weeks. It will not stop all of the pain. The pain will lessen and as you feel better, you may change to milder pain medicine such as Tylenol. * The most common side effects of pain medicine are nausea and constipation, so don't take more than you need. SPECIAL CARE INSTRUCTIONS: TEDs/Elastic Stockings: * The white elastic stockings help limit swelling and prevent blood clots from forming in your legs. The more you wear them, the more they work. * Wear them for six weeks. Incision Site Care: * Remove dressing postoperative day 2 and then shower. Keep direct shower pressure off the incision site. * After showering, cover gemini with dry gauze and change daily or more frequently if the dressing is getting saturated with drainage. * May completely stop using bandage if wound is dry and no drainage * Gemini are removed between 2 and 3 weeks post-op. If your follow-up appointment is made before 2 weeks, please have your appointment re- scheduled. It is too early to remove the gemini. Prevention of Infection: * Take antibiotics one hour before any dental cleaning, dental work, urological procedure, gastrointestinal procedure or any invasive surgery in order to prevent your new joint from getting infected. * You may get the antibiotics from the doctor performing the procedure or you may call our office at before and we will call in a prescription to the pharmacy of your choice. Things to Watch For: * Drainage from the incision site that occurs more than one week after your surgery. * Severely increased leg pain or swelling. * Increased redness at the incision site. * Fever above 102 degrees Fahrenheit. * Unusual chest pain or shortness of breath. * Unusual pain or burning with urination. Call [facility] at with any of the above problems or if you have any questions about your medicines or recovery. FOLLOW UP VISIT: Make an appointment to see your doctor for approximately two weeks after surgery for a progress check and staple removal by calling the office at . Pending Studies at Discharge: No Stand-Alone Forms: My [facility], Smoking Cessation Medications and DC Order Prescriptions: Continued tramadol 50 mg tablet 50 - 100 mg PO Q6 PRN (Reason: pain) Qty: 40 0RF Rx Instructions: Take as needed for pain ondansetron 4 mg tablet,disintegrating 4 mg PO Q8 PRN (Reason: nausea) Qty: 20 1RF Rx Instructions: Take as needed for nausea sennosides [Senokot] 8.6 mg tablet 8.6 mg PO BID 14 Days Qty: 28 0RF Rx Instructions: Take two times a day to prevent/treat constipation acetaminophen [Tylenol Extra Strength] 500 mg tablet 1,000 mg PO TID 30 Days Qty: 180 0RF Rx Instructions: Take 3 times per day to lessen pain. aspirin [Jamee Low Dose Aspirin] 81 mg tablet,delayed release (DR/EC) 81 mg PO BID 45 Days Qty: 90 0RF Rx Instructions: Take to prevent blood clots. tamsulosin [Flomax] 0.4 mg capsule 0.4 mg PO DAILY Qty: 7 0RF Rx Instructions: Begin night BEFORE surgery to prevent urinary retention (DME) Wheeled Walker Misc See Rx Instructions .MEDSUPPLY Qty: 1 0RF Rx Instructions: As directed atorvastatin 20 mg tablet 20 mg PO QPM metoprolol succinate 50 mg tablet extended release 24 hr 50 mg PO QAM cyanocobalamin (vitamin B-12) [Vitamin B-12] 1,000 mcg Tablet 1,000 mcg PO QAM amlodipine 2.5 mg tablet 2.5 mg PO QAM aspirin 81 mg Tablet,Delayed Release (Dr/Ec) 81 mg PO QAM meclizine 25 mg tablet 25 mg PO TID PRN (Reason: .dizzyness) ropinirole 0.5 mg tablet 2 mg PO HS lisinopril-hydrochlorothiazide 20-25 mg tablet 1 tab PO QAM allopurinol 300 mg tablet 300 mg PO QAM metformin 500 mg tablet extended release 24 hr 1,000 mg PO QAM cholecalciferol (vitamin D3) [Vitamin D3] 50 mcg (2,000 unit) Tablet 50 mcg PO QAM [place]/Other Patient Handouts: DVT Post Op Prevention Admission Data Admit Date/Time: 07/19/24 11:04 Attending Provider: Bravo De La Torre Admit Provider: Bravo De La Torre Primary Care Provider: Jerad Agrawal Other Interventions: Discharge Summary Assessment (RN) Last Done: 07/20/24 11:31
== END 2024-07-20 12:36 | disposition home health service (06) ==
LOC: ASU 06:24 → 3E 06:24
DX: M16.12 Unilateral primary osteoarthritis, left hip; E11.9 Type 2 diabetes mellitus without complications; Z96.641 Presence of right artificial hip joint; Z79.84 Long term (current) use of oral hypoglycemic drugs; M25.452 Effusion, left hip; I10 Essential (primary) hypertension; M67.452 Ganglion, left hip; Z79.82 Long term (current) use of aspirin; Z79.899 Other long term (current) drug therapy; M25.752 Osteophyte, left hip; E78.5 Hyperlipidemia, unspecified